=== PATIENT | male | born 1960 | race Caucasian/White ===

== ENCOUNTER 2016-11-23 14:20 | Emergency (ER) | payer MEDICARE, OTHER ==
[~2016-11-23] VITALS: Ht 182.9 cm; Wt 123.5 kg
[~2016-11-23 14:20] MED LIST: ACET-1757 PO; ACID1TAB7 PO; ALBU1.25 NEB; ALBU18HF INH; BENZ100C4 PO; CIPR500T3 PO; DAPT500V6 IV; DILT120T3 PO; DOXY100T PO; ENOX40SY4 SQ; ERTA1VIA IV; FAMO-79 PO; FERR325T20 PO; FEXO1TAB29 PO; FEXO30TA; FEXOFENADINE HCL INH; FLUT16SP NAS; FLUT1BLS INH; FLUT1DIS5; FLUT1DIS5 IH; FLUT50DI; FURO-93 PO; GUAI-103 PO; GUAI200T3 PO; HYDR-3138 PO; HYDR-3240 PO; INDO25CA PO; IPRA3AMP INH; IPRA3AMP NPPB; LEVO500T8 PO; LORA-445 PO; MONT10TA6 PO; MULT-6 PO; OMEP-110 PO; OXYC5TAB3 PO; PANT40TA3 PO; POTA20TA14 PO; PRED20TA PO; PRED5TAB PO; TIOT18CA; TIOT18CA INH; VERA120C2 PO; VERA120T5 PO; VERA120T74 PO; VERA180T56 PO; VERA240T86 PO; ZOLP10TA PO; ZOLP10TA5 PO
[2016-11-23] MEDS ORDERED: ADENOSINE 6 MG/2 ML ONE (15:12)
[2016-11-23] MEDS ORDERED: VERAPAMIL 80MG TABLET PO ONE (15:30)
[2016-11-23] MEDS ORDERED: ADENOSINE 6 MG/2 ML IVPush ONE (15:30)
[2016-11-23] MEDS ORDERED: SODIUM CHLORIDE 0.9% 1,000ML IVBOLUS ONE (15:30)
[2016-11-23] MEDS ORDERED: SODIUM CHLORIDE FLUSH 10ML SYR IVF ONE (15:30)
[2016-11-23] MEDS ORDERED: ASPIRIN 81 MG TABLET CHEW ONE (15:56)
[2016-11-23 16:30] LABS: ASPARTATE AMINO TRANSFERASE 19 U/L (15-37); BLOOD UREA NITROGEN 12 mg/dL (7-18)
[2016-11-23] MEDS ORDERED: ASPIRIN 81 MG TABLET CHEW PO ONE (16:30)
[2016-11-23 17:14] LABS: IS PT STATUS REG ER OR PRE ER? YES
[2016-11-23 17:33] VITALS: BP 141/73
== END 2016-11-23 17:52 | disposition home or self-care (01) ==
LOC: ED 15:42
DX: I47.1 Supraventricular tachycardia (principal); J44.9 Chronic obstructive pulmonary disease, unspecified; I50.9 Heart failure, unspecified; Z85.118 Personal history of other malignant neoplasm of bronchus and lung; Z87.891 Personal history of nicotine dependence
CPT/HCPCS: 36415; 71010; 80053; 83880; 84484; 85025; 93005; 93970; 96361; 96374; 99291; J0153; J7030

== ENCOUNTER → 2017-02-08 | Outpatient (CLI) | payer MEDICARE ==
[~2017-02-08] MED LIST changes: +OMNIPAQUE 350 MG/ML, 75ML BOTTLE ONE
== END | disposition home or self-care (01) ==
LOC: CFH 14:02
PROVIDERS: ATTEND Surgery Vascular Surgery
DX: J44.9 Chronic obstructive pulmonary disease, unspecified (principal); J98.11 Atelectasis; J84.10 Pulmonary fibrosis, unspecified; R91.1 Solitary pulmonary nodule; E04.1 Nontoxic single thyroid nodule; C34.90 Malignant neoplasm of unspecified part of unspecified bronchus or lung
CPT/HCPCS: 71260; Q9967

== ENCOUNTER 2017-04-10 02:24 | Inpatient (IN) | payer MEDICARE ==
[~2017-04-10] VITALS: Ht 182.9 cm; Wt 127.0 kg
[~2017-04-10 02:24] MED LIST changes: +BENZ100C17 PO; -BENZ100C4 PO; +FERR325T18 PO; -FERR325T20 PO; -HYDR-3138 PO; +HYDR-3237 PO; -OMNIPAQUE 350 MG/ML, 75ML BOTTLE ONE
[2017-04-10 02:54] LABS: HEMOGLOBIN 11.1 g/dL (13.7-18.0); WHITE BLOOD COUNT 18.7 x10^3/uL (3.4-10)
[2017-04-10 02:57] LABS: DIFF TOTAL CELLS COUNTED 100 CELL DIFF
[2017-04-10 03:01] LABS: BLOOD UREA NITROGEN 28 mg/dL (7-18)
[2017-04-10 03:06] LABS: ASPARTATE AMINO TRANSFERASE 18 U/L (15-37)
[2017-04-10 03:13] LABS: VERIFY COUNTS? YES
[2017-04-10 03:14] LABS: IS PT STATUS REG ER OR PRE ER? YES
[2017-04-10] MEDS ORDERED: CEFAZOLIN PMX 1GM/50ML 0 ML ONE (03:39)
[2017-04-10] MEDS ORDERED: CEFTRIAXONE PMX 1GM/50ML 50 ML ONE (03:40)
[2017-04-10] MEDS ORDERED: ALBUTEROL/IPRATROPIUM 2.5MG/0.5MG, 3 ML ONE (03:48)
[2017-04-10] MEDS ORDERED: ONDANSETRON 2MG/ML, 2ML ONE (03:56)
[2017-04-10] MEDS ORDERED: SODIUM CHLORIDE FLUSH 10ML SYR IVF ONE (04:00)
[2017-04-10] MEDS ORDERED: ONDANSETRON 2MG/ML, 2ML IVPush ONE ×2 (04:00→05:30)
[2017-04-10] MEDS ORDERED: ALBUTEROL/IPRATROPIUM 2.5MG/0.5MG, 3 ML NPPB ONE (04:00)
[2017-04-10] MEDS ORDERED: CEFTRIAXONE PMX 1GM/50ML 50 ML IV ONE (04:00)
[2017-04-10] MEDS ORDERED: SODIUM CHLORIDE 0.9% 1,000ML IVBOLUS ONE (04:00)
[2017-04-10] MEDS ORDERED: AZITHROMYCIN 500 MG in SODIUM CHLORIDE 0.9% 250 ML IV ONE (04:00)
[2017-04-10] MEDS ORDERED: ONDANSETRON ODT 4 MG PO PRN (04:30)
[2017-04-10] MEDS ORDERED: DOCUSATE 100 MG CAPSULE PO PRN (04:30)
[2017-04-10] MEDS ORDERED: ACETAMINOPHEN 325 MG TABLET PO PRN (04:30)
[2017-04-10 05:11] VITALS: BP 171/88
[2017-04-10] MEDS ORDERED: SODIUM CHLORIDE 0.9% 1,000 ML IV SCH (05:30)
[2017-04-10] MEDS ORDERED: LABETALOL 5MG/ML, 20ML IVPush PRN (05:30)
[2017-04-10] MEDS ORDERED: ALBUTEROL/IPRATROPIUM 2.5MG/0.5MG, 3 ML NPPB SCH (05:30)
[2017-04-10] MEDS ORDERED: ALBUTEROL/IPRATROPIUM 2.5MG/0.5MG, 3 ML NPPB PRN (05:30)
[2017-04-10] MEDS: HEPARIN 5,000 UNITS/ML, 1ML SQ SCH ×3 (06:29→21:57)
[2017-04-10] MEDS: HYDROcodone/APAP 5/325 TABLET PO PRN ×4 (06:29→22:45)
[2017-04-10] MEDS: LACTOBACILLUS CHEW TABLET PO SCH ×4 (06:30→21:54)
[2017-04-10] MEDS: ALBUTEROL/IPRATROPIUM 2.5MG/0.5MG, 3 ML NPPB SCH ×5 (07:00→19:29)
[2017-04-10 07:47] VITALS: BP 128/71
[2017-04-10] MEDS: TEMPLATE NON-FORMULARY MED. (Tiotropium Bromide** (Spiriva**) 18 MCG) INH SCH (08:00)
[2017-04-10] MEDS: TEMPLATE NON-FORMULARY MED. (Fluticasone/Salmeterol** (Advair 500-50 Diskus**) 1 PUFF) IH SCH ×2 (08:00→21:00)
[2017-04-10] MEDS: MULTIVITAMIN 1 TABLET PO SCH (08:00)
[2017-04-10] MEDS: morphine SULFATE 10 MG/ML, 1ML IVPush PRN ×3 (08:00→21:55)
[2017-04-10 13:14] VITALS: BP 140/78
[2017-04-10] MEDS: FLUTICASONE/VILANTEROL 200-25MCG/INH INH SCH (14:01)
[2017-04-10 19:20] VITALS: BP 138/76
[2017-04-10 21:49] VITALS: BP 126/73
[2017-04-10] MEDS: VERAPAMIL ER 240MG TABLET.ER PO SCH (21:54)
[2017-04-10] MEDS: MONTELUKAST 10 MG TABLET PO SCH (21:54)
[2017-04-11 01:33] VITALS: BP 121/64
[2017-04-11] MEDS: AZITHROMYCIN 250 MG TABLET PO SCH (03:48)
[2017-04-11] MEDS: HYDROcodone/APAP 5/325 TABLET PO PRN ×3 (03:48→21:40)
[2017-04-11] MEDS: LACTOBACILLUS CHEW TABLET PO SCH ×4 (04:55→21:05)
[2017-04-11] MEDS: morphine SULFATE 10 MG/ML, 1ML IVPush PRN ×5 (04:56→23:34)
[2017-04-11] MEDS: HEPARIN 5,000 UNITS/ML, 1ML SQ SCH (04:58)
[2017-04-11 05:21] LABS: HEMATOCRIT 24.8 % (39.2-51.8); HEMOGLOBIN 8.1 g/dL (13.7-18.0); WHITE BLOOD COUNT 13.3 x10^3/uL (3.4-10)
[2017-04-11 05:28] LABS: BLOOD UREA NITROGEN 20 mg/dL (7-18)
[2017-04-11] MEDS: ALBUTEROL/IPRATROPIUM 2.5MG/0.5MG, 3 ML NPPB SCH ×4 (06:56→19:40)
[2017-04-11 07:56] VITALS: BP 131/69
[2017-04-11] MEDS: MULTIVITAMIN 1 TABLET PO SCH (08:37)
[2017-04-11] MEDS: FLUTICASONE/VILANTEROL 200-25MCG/INH INH SCH (08:37)
[2017-04-11] MEDS: TEMPLATE NON-FORMULARY MED. (Fluticasone/Salmeterol** (Advair 500-50 Diskus**) 1 PUFF) IH SCH ×2 (08:38→21:00)
[2017-04-11] MEDS: TEMPLATE NON-FORMULARY MED. (Tiotropium Bromide** (Spiriva**) 18 MCG) INH SCH (08:38)
[2017-04-11] MEDS ORDERED: PANTOPROZOLE 40MG TABLET PO SCH (09:00)
[2017-04-11 12:07] LABS: HEMATOCRIT 23.1 % (39.2-51.8); HEMOGLOBIN 7.6 g/dL (13.7-18.0)
[2017-04-11] MEDS ORDERED: PANT40TA5 PO (12:59)
[2017-04-11 13:36] VITALS: BP 143/69
[2017-04-11] MEDS ORDERED: PANTOPRAZOLE 80 MG in SODIUM CHLORIDE 0.9% 50 ML IV ONE (16:30)
[2017-04-11] MEDS: PANTOPRAZOLE 80 MG in SODIUM CHLORIDE 0.9% 100 ML IV SCH (16:57)
[2017-04-11 19:23] VITALS: BP 150/72
[2017-04-11] MEDS: VERAPAMIL ER 240MG TABLET.ER PO SCH (21:05)
[2017-04-11] MEDS: MONTELUKAST 10 MG TABLET PO SCH (21:05)
[2017-04-12] VITALS (7 sets, daily range): BP systolic 113–158; BP diastolic 62–84
[2017-04-12] MEDS ORDERED: LORazepam 1MG TABLET ONE (02:14)
[2017-04-12] MEDS ORDERED: LORazepam 1MG TABLET PO ONE (02:30)
[2017-04-12] MEDS: morphine SULFATE 10 MG/ML, 1ML IVPush PRN ×4 (02:46→23:00)
[2017-04-12] MEDS: PANTOPRAZOLE 80 MG in SODIUM CHLORIDE 0.9% 100 ML IV SCH ×2 (03:58→20:34)
[2017-04-12 05:20] LABS: BLOOD UREA NITROGEN 12 mg/dL (7-18)
[2017-04-12 05:22] LABS: WHITE BLOOD COUNT 10.1 x10^3/uL (3.4-10)
[2017-04-12 05:23] LABS: ASPARTATE AMINO TRANSFERASE 12 U/L (15-37)
[2017-04-12] MEDS: AZITHROMYCIN 250 MG TABLET PO SCH (05:39)
[2017-04-12] MEDS: LACTOBACILLUS CHEW TABLET PO SCH ×4 (05:39→21:00)
[2017-04-12 06:01] LABS: HEMATOCRIT 20.3 % (39.2-51.8); HEMOGLOBIN 6.8 g/dL (13.7-18.0)
[2017-04-12] MEDS: ALBUTEROL/IPRATROPIUM 2.5MG/0.5MG, 3 ML NPPB SCH ×5 (06:45→22:00)
[2017-04-12] MEDS: TEMPLATE NON-FORMULARY MED. (Tiotropium Bromide** (Spiriva**) 18 MCG) INH SCH (09:00)
[2017-04-12] MEDS: TEMPLATE NON-FORMULARY MED. (Fluticasone/Salmeterol** (Advair 500-50 Diskus**) 1 PUFF) IH SCH ×2 (09:00→20:28)
[2017-04-12] MEDS: MULTIVITAMIN 1 TABLET PO SCH (09:00)
[2017-04-12] MEDS: FLUTICASONE/VILANTEROL 200-25MCG/INH INH SCH (09:29)
[2017-04-12] MEDS ORDERED: FENTANYL PF 100 MCG/2ML ONE ×3 (10:16→11:48)
[2017-04-12] MEDS ORDERED: MIDAZOLAM 1 MG/ML, 2ML ONE ×2 (10:16→11:12)
[2017-04-12] MEDS ORDERED: PROPOFOL 10 MG/ML, 20ML ONE (10:33)
[2017-04-12] MEDS ORDERED: MEPERIDINE/PF 25MG/0.5ML IVPush PRN (11:00)
[2017-04-12] MEDS ORDERED: OXYcodone 5 MG/5 ML ORAL.SOL UDC PO PRN (11:00)
[2017-04-12] MEDS ORDERED: ONDANSETRON 2MG/ML, 2ML IVPush PRN (11:00)
[2017-04-12] MEDS ORDERED: HYDROmorphone 1 MG/ML, 1ML IV PRN (11:00)
[2017-04-12] MEDS ORDERED: OXYcodone 5 MG/5 ML ORAL.SOL UDC ONE (11:48)
[2017-04-12] MEDS: FENTANYL PF 100 MCG/2ML IV PRN ×3 (11:49→12:53)
[2017-04-12 13:49] LABS: HEMATOCRIT 27.7 % (39.2-51.8); HEMOGLOBIN 9.1 g/dL (13.7-18.0)
[2017-04-12] MEDS ORDERED: MORPHINE SULFATE 4 MG/ML, 1ML ONE ×3 (14:31→19:51)
[2017-04-12] MEDS: SUCRALFATE 1 GM/10 ML UDC PO SCH ×2 (16:19→20:34)
[2017-04-12] MEDS: VERAPAMIL ER 240MG TABLET.ER PO SCH (20:34)
[2017-04-12] MEDS: MONTELUKAST 10 MG TABLET PO SCH (21:00)
[2017-04-12] MEDS: HYDROcodone/APAP 5/325 TABLET PO PRN (21:25)
[2017-04-13 00:08] VITALS: BP 165/72
[2017-04-13] MEDS: HYDROcodone/APAP 5/325 TABLET PO PRN ×2 (01:18→09:29)
[2017-04-13] MEDS: morphine SULFATE 10 MG/ML, 1ML IVPush PRN ×2 (02:10→05:52)
[2017-04-13 05:44] LABS: HEMATOCRIT 25.7 % (39.2-51.8); HEMOGLOBIN 8.6 g/dL (13.7-18.0); WHITE BLOOD COUNT 9.2 x10^3/uL (3.4-10)
[2017-04-13] MEDS: PANTOPRAZOLE 80 MG in SODIUM CHLORIDE 0.9% 100 ML IV SCH (05:52)
[2017-04-13] MEDS: LACTOBACILLUS CHEW TABLET PO SCH ×2 (05:52→11:31)
[2017-04-13] MEDS: AZITHROMYCIN 250 MG TABLET PO SCH (05:53)
[2017-04-13 06:18] LABS: BLOOD UREA NITROGEN 9 mg/dL (7-18)
[2017-04-13] MEDS ORDERED: PANTOPROZOLE 40MG TABLET PO SCH (07:30)
[2017-04-13] MEDS: ALBUTEROL/IPRATROPIUM 2.5MG/0.5MG, 3 ML NPPB SCH ×2 (07:35→11:20)
[2017-04-13] MEDS: TEMPLATE NON-FORMULARY MED. (Tiotropium Bromide** (Spiriva**) 18 MCG) INH SCH (09:00)
[2017-04-13] MEDS: TEMPLATE NON-FORMULARY MED. (Fluticasone/Salmeterol** (Advair 500-50 Diskus**) 1 PUFF) IH SCH (09:00)
[2017-04-13] MEDS: FLUTICASONE/VILANTEROL 200-25MCG/INH INH SCH (09:20)
[2017-04-13] MEDS: MULTIVITAMIN 1 TABLET PO SCH (09:20)
[2017-04-13] MEDS: SUCRALFATE 1 GM/10 ML UDC PO SCH ×2 (09:21→11:32)
[2017-04-13 10:00] VITALS: BP 145/56
[2017-04-13] MEDS ORDERED: PANT40TA5 PO (10:37)
[2017-04-13] MEDS ORDERED: PRED20TA PO (10:37)
[2017-04-13] MEDS ORDERED: AZIT250T89 PO (10:43)
[2017-04-13] MEDS ORDERED: PNEUMOC 13-VALENT VACC, 0.5 ML IM-VACC ONE (11:00)
[2017-04-13] MEDS ORDERED: FLU VACC QS2017-18 (36MOS+) UP/PF 0.5 ML IM-VACC ONE (11:00)
[2017-04-14 15:49] LABS: ANA SCREEN POSITIVE (Negative)
[2017-04-14 15:50] LABS: ANA TITER 1:40
== END 2017-04-13 15:00 | disposition home or self-care (01) | DRG 377 ==
LOC: ED 04:03 → EDIP 04:05 → 4WST 04:56
PROVIDERS: ADMIT Family Medicine; ATTEND Family Medicine
PROC: 30233N1 Transfusion of Nonautologous Red Blood Cells into Peripheral Vein, Percutaneous Approach (ICD-10-PCS; 2017-04-12)
PROC: 0W3P8ZZ Control Bleeding in Gastrointestinal Tract, Via Natural or Artificial Opening Endoscopic (ICD-10-PCS; principal; 2017-04-12 10:00)
DX: K26.4 Chronic or unspecified duodenal ulcer with hemorrhage (principal); J96.01 Acute respiratory failure with hypoxia; I50.32 Chronic diastolic (congestive) heart failure; I11.0 Hypertensive heart disease with heart failure; E66.01 Morbid (severe) obesity due to excess calories; I47.1 Supraventricular tachycardia; K56.7 Ileus, unspecified; D62 Acute posthemorrhagic anemia; J44.1 Chronic obstructive pulmonary disease with (acute) exacerbation; Z99.81 Dependence on supplemental oxygen; D72.829 Elevated white blood cell count, unspecified; I25.10 Atherosclerotic heart disease of native coronary artery without angina pectoris; I48.0 Paroxysmal atrial fibrillation; K29.40 Chronic atrophic gastritis without bleeding; K29.80 Duodenitis without bleeding; Z80.3 Family history of malignant neoplasm of breast; Z82.49 Family history of ischemic heart disease and other diseases of the circulatory system; Z85.118 Personal history of other malignant neoplasm of bronchus and lung; Z86.010 Personal history of colon polyps; Z87.11 Personal history of peptic ulcer disease; Z87.891 Personal history of nicotine dependence; Z68.38 Body mass index [BMI] 38.0-38.9, adult
CPT/HCPCS: 36415; 71020; 74020; 80048; 80053; 83516; 83605; 83880; 84145; 84484; 85014; 85018; 85025; 86038; 86039; 86677; 86704; 86706; 86708; 86803; 86850; 86900; 86923; 87040; 87340; 90686; 93005; 94640; 96365; 96375; J0456; J0696; J1644; J2250; J2405; J2704; J3010; J7620; C9113; J2270; J7030; J7050; J7512; P9016

== ENCOUNTER 2017-04-15 23:04 | Inpatient (IN) | payer MEDICARE ==
[~2017-04-15] VITALS: Ht 182.9 cm; Wt 126.4 kg
[~2017-04-15 23:04] MED LIST changes: +AZIT250T89 PO; +PANT40TA5 PO
[2017-04-15] MEDS ORDERED: PANTOPRAZOLE 80 MG in SODIUM CHLORIDE 0.9% 100 ML IV SCH (23:08)
[2017-04-15] MEDS ORDERED: PANTOPRAZOLE 80 MG in SODIUM CHLORIDE 0.9% 50 ML IVPB ONE (23:08)
[2017-04-15] MEDS ORDERED: ALBUTEROL 0.5%, 20ML NPPB SCH (23:30)
[2017-04-15] MEDS ORDERED: SODIUM CHLORIDE 0.9% 1,000ML IVBOLUS ONE (23:30)
[2017-04-15] MEDS ORDERED: SODIUM CHLORIDE FLUSH 10ML SYR IVF ONE ×2 (23:30)
[2017-04-15 23:47] LABS: ASPARTATE AMINO TRANSFERASE 23 U/L (15-37); BLOOD UREA NITROGEN 39 mg/dL (7-18)
[2017-04-15 23:56] LABS: IS PT STATUS REG ER OR PRE ER? YES
[2017-04-16] VITALS (8 sets, daily range): BP systolic 114–163; BP diastolic 58–81
[2017-04-16 00:21] LABS: WHITE BLOOD COUNT 21.6 x10^3/uL (3.4-10)
[2017-04-16 00:24] LABS: HEMATOCRIT 21.6 % (39.2-51.8)
[2017-04-16 00:25] LABS: DIFF TOTAL CELLS COUNTED 100 CELL DIFF
[2017-04-16 01:11] LABS: VERIFY COUNTS? YES
[2017-04-16 01:16] LABS: POLYCHROMASIA 2+
[2017-04-16 01:18] LABS: HYPOCHROMIA 1+
[2017-04-16 01:24] LABS: ANISOCYTOSIS 1+
[2017-04-16] MEDS ORDERED: SODIUM CHLORIDE FLUSH 10ML SYR IVF PRN (01:30)
[2017-04-16] MEDS ORDERED: hydrALAzine 20 MG/ML, 1ML IVPush PRN ×2 (02:30→19:30)
[2017-04-16] MEDS ORDERED: ACETAMINOPHEN 325 MG TABLET PO PRN ×2 (02:30→19:30)
[2017-04-16] MEDS ORDERED: ALBUTEROL SULFATE 2.5 MG/3 ML NEB PRN (02:30)
[2017-04-16] MEDS ORDERED: DIPHENHYDRAMINE 50 MG/ML, 1ML IVPush ONE (02:30)
[2017-04-16] MEDS ORDERED: TRAZODONE 50MG TABLET PO PRN (03:00)
[2017-04-16] MEDS: SUCRALFATE 1 GM/10 ML UDC PO SCH ×5 (03:00→20:53)
[2017-04-16] MEDS: PIPERACILLIN/TAZO/PMX 4.5GM 100 ML IV SCH ×4 (03:09→20:53)
[2017-04-16] MEDS: HYDROcodone/APAP 5/325 TABLET PO PRN ×3 (03:43→20:53)
[2017-04-16] MEDS: LACTOBACILLUS CHEW TABLET PO SCH ×4 (05:29→20:54)
[2017-04-16] MEDS: morphine SULFATE 10 MG/ML, 1ML IVPush PRN ×4 (05:38→23:03)
[2017-04-16] MEDS: ALBUTEROL/IPRATROPIUM 2.5MG/0.5MG, 3 ML NPPB SCH ×4 (07:00→19:38)
[2017-04-16] MEDS ORDERED: IPRATROPIUM 0.5 MG/2.5 ML INHA HHN SCH (09:00)
[2017-04-16] MEDS: FLUTICASONE/VILANTEROL 200-25MCG/INH INH SCH (09:00)
[2017-04-16] MEDS: FUROSEMIDE 20 MG TABLET PO SCH (09:00)
[2017-04-16] MEDS: TEMPLATE NON-FORMULARY MED. (Guaifenesin/Pseudoephedrne Hcl** (Mucinex D Er Tablet**) 1 TA HOMEMEDPO SCH ×2 (09:00→20:52)
[2017-04-16] MEDS: MULTIVITAMIN 1 TABLET PO SCH (09:00)
[2017-04-16] MEDS ORDERED: MIDAZOLAM 1 MG/ML, 2ML ONE (11:39)
[2017-04-16] MEDS ORDERED: FENTANYL PF 100 MCG/2ML ONE (11:39)
[2017-04-16] MEDS ORDERED: PROPOFOL 10 MG/ML, 20ML ONE (12:02)
[2017-04-16] MEDS ORDERED: hydrALAzine 20 MG/ML, 1ML IV PRN (13:00)
[2017-04-16] MEDS ORDERED: PROMETHAZINE 25 MG/ML, 1ML IV PRN (13:00)
[2017-04-16] MEDS ORDERED: FENTANYL PF 100 MCG/2ML IV PRN (13:00)
[2017-04-16] MEDS ORDERED: OXYcodone 5 MG/5 ML ORAL.SOL UDC PO PRN (13:00)
[2017-04-16] MEDS ORDERED: LABETALOL 5MG/ML, 20ML IV PRN (13:00)
[2017-04-16] MEDS ORDERED: ONDANSETRON 2MG/ML, 2ML IVPush PRN (13:00)
[2017-04-16] MEDS ORDERED: HYDROmorphone 1 MG/ML, 1ML IV PRN (13:00)
[2017-04-16] MEDS ORDERED: ALBUTEROL/IPRATROPIUM 2.5MG/0.5MG, 3 ML NPPB PRN (13:00)
[2017-04-16] MEDS: VERAPAMIL ER 240MG TABLET.ER PO SCH (20:54)
[2017-04-16] MEDS: MONTELUKAST 10 MG TABLET PO SCH (20:54)
[2017-04-16] MEDS: OMEPRAZOLE 20 MG CAPSULE.DR PO SCH (20:54)
[2017-04-16] MEDS: TRAZODONE 50MG TABLET PO PRN (22:55)
[2017-04-17 01:35] VITALS: BP 128/63
[2017-04-17] MEDS: PIPERACILLIN/TAZO/PMX 4.5GM 100 ML IV SCH ×4 (03:16→20:20)
[2017-04-17] MEDS: HYDROcodone/APAP 5/325 TABLET PO PRN ×5 (03:16→22:18)
[2017-04-17] MEDS: LACTOBACILLUS CHEW TABLET PO SCH ×4 (05:31→20:20)
[2017-04-17] MEDS: morphine SULFATE 10 MG/ML, 1ML IVPush PRN ×2 (05:31→15:31)
[2017-04-17] MEDS: ALBUTEROL/IPRATROPIUM 2.5MG/0.5MG, 3 ML NPPB SCH ×4 (08:13→18:29)
[2017-04-17 08:15] VITALS: BP 126/71
[2017-04-17 08:16] LABS: BLOOD UREA NITROGEN 12 mg/dL (7-18)
[2017-04-17 08:53] LABS: HEMATOCRIT 24.2 % (39.2-51.8); HEMOGLOBIN 7.9 g/dL (13.7-18.0); WHITE BLOOD COUNT 10.5 x10^3/uL (3.4-10)
[2017-04-17 08:55] LABS: ANISOCYTOSIS 1+; HYPOCHROMIA 1+; POLYCHROMASIA 2+
[2017-04-17] MEDS: TEMPLATE NON-FORMULARY MED. (Guaifenesin/Pseudoephedrne Hcl** (Mucinex D Er Tablet**) 1 TA HOMEMEDPO SCH ×2 (09:00→21:00)
[2017-04-17] MEDS: FLUTICASONE/VILANTEROL 200-25MCG/INH INH SCH (09:10)
[2017-04-17] MEDS: SUCRALFATE 1 GM/10 ML UDC PO SCH ×4 (09:10→20:20)
[2017-04-17] MEDS: OMEPRAZOLE 20 MG CAPSULE.DR PO SCH ×2 (09:11→20:20)
[2017-04-17] MEDS: MULTIVITAMIN 1 TABLET PO SCH (09:11)
[2017-04-17] MEDS: FUROSEMIDE 20 MG TABLET PO SCH (09:11)
[2017-04-17] MEDS ORDERED: LACTULOSE 20 GM/30 ML UDC PO PRN (14:00)
[2017-04-17] MEDS ORDERED: BISACODYL 10 MG SUPP PR PRN (14:00)
[2017-04-17 14:20] VITALS: BP 114/55
[2017-04-17] MEDS: MONTELUKAST 10 MG TABLET PO SCH (20:20)
[2017-04-17] MEDS: VERAPAMIL ER 240MG TABLET.ER PO SCH (20:20)
[2017-04-17 21:00] VITALS: BP 126/65
[2017-04-17] MEDS: TRAZODONE 50MG TABLET PO PRN (22:18)
[2017-04-18] MEDS: morphine SULFATE 10 MG/ML, 1ML IVPush PRN ×3 (01:50→23:30)
[2017-04-18 02:03] VITALS: BP 125/73
[2017-04-18] MEDS: PIPERACILLIN/TAZO/PMX 4.5GM 100 ML IV SCH ×2 (03:01→08:15)
[2017-04-18] MEDS: LACTOBACILLUS CHEW TABLET PO SCH ×4 (05:11→21:37)
[2017-04-18 05:46] LABS: HEMOGLOBIN 7.5 g/dL (13.7-18.0); WHITE BLOOD COUNT 8.3 x10^3/uL (3.4-10)
[2017-04-18 06:34] LABS: HEMATOCRIT 22.6 % (39.2-51.8)
[2017-04-18] MEDS: ALBUTEROL/IPRATROPIUM 2.5MG/0.5MG, 3 ML NPPB SCH ×4 (06:42→19:36)
[2017-04-18] MEDS: SUCRALFATE 1 GM/10 ML UDC PO SCH ×4 (07:34→21:36)
[2017-04-18] MEDS: FLUTICASONE/VILANTEROL 200-25MCG/INH INH SCH (07:34)
[2017-04-18] MEDS: TEMPLATE NON-FORMULARY MED. (Guaifenesin/Pseudoephedrne Hcl** (Mucinex D Er Tablet**) 1 TA HOMEMEDPO SCH ×2 (08:10→21:00)
[2017-04-18] MEDS: FUROSEMIDE 20 MG TABLET PO SCH (08:15)
[2017-04-18] MEDS: MULTIVITAMIN 1 TABLET PO SCH (08:15)
[2017-04-18] MEDS: OMEPRAZOLE 20 MG CAPSULE.DR PO SCH ×2 (08:15→21:44)
[2017-04-18 08:34] VITALS: BP 132/70
[2017-04-18 12:14] LABS: HEMATOCRIT 24.5 % (39.2-51.8); HEMOGLOBIN 7.9 g/dL (13.7-18.0)
[2017-04-18] MEDS: HYDROcodone/APAP 5/325 TABLET PO PRN ×2 (12:23→21:37)
[2017-04-18 13:30] VITALS: BP 113/66
[2017-04-18] MEDS ORDERED: POLYETHYLENE GLYCOL 17 GM PACKET PO ONE (13:30)
[2017-04-18] MEDS ORDERED: BISACODYL 10 MG SUPP PR PRN (13:30)
[2017-04-18] MEDS ORDERED: DOCUSATE 50 MG/5 ML, 10ML UDC PO SCH (13:30)
[2017-04-18] MEDS ORDERED: LACTULOSE 20 GM/30 ML UDC PO PRN (13:30)
[2017-04-18] MEDS: DOCUSATE 100 MG CAPSULE PO SCH (15:10)
[2017-04-18] MEDS ORDERED: MORPHINE SULFATE 4 MG/ML, 1ML ONE (15:12)
[2017-04-18 20:45] VITALS: BP 127/67
[2017-04-18] MEDS ORDERED: SENNOSIDES 8.8 MG/5 ML ORAL SOL NG SCH (21:00)
[2017-04-18] MEDS: MONTELUKAST 10 MG TABLET PO SCH (21:36)
[2017-04-18] MEDS: VERAPAMIL ER 240MG TABLET.ER PO SCH (21:36)
[2017-04-18] MEDS ORDERED: TRAZODONE 50MG TABLET PO PRN (23:00)
[2017-04-19 02:15] VITALS: BP 120/62
[2017-04-19] MEDS: LACTOBACILLUS CHEW TABLET PO SCH ×2 (05:06→11:38)
[2017-04-19] MEDS: HYDROcodone/APAP 5/325 TABLET PO PRN (05:13)
[2017-04-19 06:14] LABS: HEMATOCRIT 23.4 % (39.2-51.8); HEMOGLOBIN 7.6 g/dL (13.7-18.0); WHITE BLOOD COUNT 7.7 x10^3/uL (3.4-10)
[2017-04-19] MEDS: TEMPLATE NON-FORMULARY MED. (Guaifenesin/Pseudoephedrne Hcl** (Mucinex D Er Tablet**) 1 TA HOMEMEDPO SCH (07:05)
[2017-04-19] MEDS: SUCRALFATE 1 GM/10 ML UDC PO SCH ×2 (07:07→11:38)
[2017-04-19 07:20] VITALS: BP 166/64
[2017-04-19] MEDS: DOCUSATE 100 MG CAPSULE PO SCH (07:21)
[2017-04-19] MEDS: FLUTICASONE/VILANTEROL 200-25MCG/INH INH SCH (08:03)
[2017-04-19] MEDS: FUROSEMIDE 20 MG TABLET PO SCH (08:03)
[2017-04-19] MEDS: OMEPRAZOLE 20 MG CAPSULE.DR PO SCH (08:03)
[2017-04-19] MEDS: MULTIVITAMIN 1 TABLET PO SCH (08:03)
[2017-04-19] MEDS: ALBUTEROL/IPRATROPIUM 2.5MG/0.5MG, 3 ML NPPB SCH (09:45)
[2017-04-19 12:00] LABS: HEMATOCRIT 24.2 % (39.2-51.8); HEMOGLOBIN 7.8 g/dL (13.7-18.0)
[2017-04-19] MEDS ORDERED: OMEP-110 PO (12:30)
[2017-04-19] MEDS ORDERED: SUCR1ORA5 PO (12:36)
[2017-04-19 14:02] VITALS: BP 134/72
== END 2017-04-19 15:27 | disposition home or self-care (01) | DRG 377 ==
LOC: ED 23:13 → EDIP 04-16 01:09 → 4WST 04-16 02:53
PROVIDERS: ADMIT Family Medicine; ATTEND Family Medicine
PROC: 30233N1 Transfusion of Nonautologous Red Blood Cells into Peripheral Vein, Percutaneous Approach (ICD-10-PCS; 2017-04-16)
PROC: 0DJ08ZZ Inspection of Upper Intestinal Tract, Via Natural or Artificial Opening Endoscopic (ICD-10-PCS; principal; 2017-04-16 12:00)
DX: K26.4 Chronic or unspecified duodenal ulcer with hemorrhage (principal); J96.91 Respiratory failure, unspecified with hypoxia; I11.0 Hypertensive heart disease with heart failure; I95.9 Hypotension, unspecified; I50.9 Heart failure, unspecified; D62 Acute posthemorrhagic anemia; I47.1 Supraventricular tachycardia; J44.1 Chronic obstructive pulmonary disease with (acute) exacerbation; K29.40 Chronic atrophic gastritis without bleeding; K59.00 Constipation, unspecified; I48.91 Unspecified atrial fibrillation; E66.9 Obesity, unspecified; Z99.81 Dependence on supplemental oxygen; Z87.891 Personal history of nicotine dependence; Z87.11 Personal history of peptic ulcer disease; Z85.118 Personal history of other malignant neoplasm of bronchus and lung; Z80.3 Family history of malignant neoplasm of breast; Z68.37 Body mass index [BMI] 37.0-37.9, adult; Z82.49 Family history of ischemic heart disease and other diseases of the circulatory system; Z86.010 Personal history of colon polyps
CPT/HCPCS: 36415; 71010; 80048; 80053; 84484; 85014; 85018; 85025; 86850; 86900; 86923; 93005; 94640; 99285; J2250; J2543; J2704; J3010; J7620; C9113; J1200; J2270; J7030; J7512; P9016

== ENCOUNTER 2017-05-26 03:14 | Inpatient (IN) | payer MEDICARE ==
[~2017-05-26] VITALS: Ht 182.9 cm; Wt 122.6 kg
[~2017-05-26 03:14] MED LIST changes: +BENZ-17 PO; -BENZ100C17 PO; +SUCR1ORA5 PO
[2017-05-26 03:57] LABS: HEMATOCRIT 28.2 % (39.2-51.8); HEMOGLOBIN 8.6 g/dL (13.7-18.0); WHITE BLOOD COUNT 9.9 x10^3/uL (3.4-10)
[2017-05-26] MEDS ORDERED: ASPIRIN 81 MG TABLET CHEW ONE (03:58)
[2017-05-26] MEDS ORDERED: ASPIRIN 81 MG TABLET CHEW PO ONE (04:00)
[2017-05-26] MEDS ORDERED: SODIUM CHLORIDE FLUSH 10ML SYR IVF ONE (04:00)
[2017-05-26] MEDS ORDERED: ALBUTEROL/IPRATROPIUM 2.5MG/0.5MG, 3 ML NPPB ONE (04:00)
[2017-05-26 04:08] LABS: ASPARTATE AMINO TRANSFERASE 14 U/L (15-37); BLOOD UREA NITROGEN 10 mg/dL (7-18)
[2017-05-26 04:14] LABS: ANISOCYTOSIS 1+; HYPOCHROMIA 1+
[2017-05-26 04:15] LABS: POLYCHROMASIA 1+; STOMATOCYTES 1+
[2017-05-26 04:16] LABS: MICROCYTOSIS 1+
[2017-05-26 04:23] LABS: IS PT STATUS REG ER OR PRE ER? YES
[2017-05-26] MEDS ORDERED: OMNIPAQUE 350 MG/ML, 100ML BOTTLE ONE (04:50)
[2017-05-26] MEDS ORDERED: ENOXAPARIN 40 MG/0.4 ML SQ SCH (06:00)
[2017-05-26] MEDS ORDERED: GUAIFENESIN/DM 200-20MG, 10ML UDC PO PRN (06:00)
[2017-05-26] MEDS ORDERED: ALBUTEROL SULFATE 2.5MG/0.5ML NPPB PRN (06:30)
[2017-05-26] MEDS ORDERED: ACETAMINOPHEN 325 MG TABLET PO PRN (06:30)
[2017-05-26] MEDS ORDERED: AZITHROMYCIN 500 MG TABLET PO ONE (06:30)
[2017-05-26] MEDS: methylPREDNISolone SOD SUCC 40 MG/ML IVPush SCH ×3 (06:39→20:59)
[2017-05-26] MEDS ORDERED: ALBUTEROL/IPRATROPIUM 2.5MG/0.5MG, 3 ML NPPB SCH (07:00)
[2017-05-26] MEDS ORDERED: ALBUTEROL/IPRATROPIUM 2.5MG/0.5MG, 3 ML NPPB PRN (08:30)
[2017-05-26 08:34] VITALS: BP 151/77
[2017-05-26] MEDS ORDERED: IPRATROPIUM 0.5 MG/2.5 ML INHA HHN SCH (09:00)
[2017-05-26 09:40] LABS: RAPID INFLUENZA A Negative (Negative); RAPID INFLUENZA B Negative (Negative)
[2017-05-26] MEDS: ALBUTEROL/IPRATROPIUM 2.5MG/0.5MG, 3 ML NPPB SCH ×3 (11:00→20:45)
[2017-05-26] MEDS: MULTIVITAMIN 1 TABLET PO SCH (11:21)
[2017-05-26] MEDS: HYDROcodone/APAP 10/325 MG TABLET PO PRN ×3 (11:21→21:01)
[2017-05-26 11:28] VITALS: BP 132/77
[2017-05-26 12:37] VITALS: BP 146/81
[2017-05-26] MEDS: FLUTICASONE/VILANTEROL 200-25MCG/INH INH SCH (13:02)
[2017-05-26] MEDS: FERROUS SULFATE 325 MG TABLET PO SCH (15:51)
[2017-05-26] MEDS: HEPARIN 5,000 UNITS/ML, 1ML SQ SCH ×2 (15:51→22:45)
[2017-05-26 18:51] VITALS: BP 166/82
[2017-05-26] MEDS: VERAPAMIL ER 240MG TABLET.ER PO SCH (21:00)
[2017-05-26] MEDS: MONTELUKAST 10 MG TABLET PO SCH (21:00)
[2017-05-26] MEDS: ZOLPIDEM 5MG TABLET PO PRN (22:41)
[2017-05-27 02:00] VITALS: BP 138/66
[2017-05-27] MEDS: HYDROcodone/APAP 10/325 MG TABLET PO PRN ×4 (05:27→21:29)
[2017-05-27] MEDS: methylPREDNISolone SOD SUCC 40 MG/ML IVPush SCH (05:27)
[2017-05-27 05:47] LABS: HEMATOCRIT 28.8 % (39.2-51.8); HEMOGLOBIN 9.2 g/dL (13.7-18.0); WHITE BLOOD COUNT 15.5 x10^3/uL (3.4-10)
[2017-05-27 05:51] LABS: BLOOD UREA NITROGEN 8 mg/dL (7-18)
[2017-05-27] MEDS: ALBUTEROL/IPRATROPIUM 2.5MG/0.5MG, 3 ML NPPB SCH ×4 (08:25→20:00)
[2017-05-27 08:40] VITALS: BP 124/63
[2017-05-27] MEDS ORDERED: AZITHROMYCIN 250 MG TABLET PO SCH (09:00)
[2017-05-27] MEDS: FLUTICASONE/VILANTEROL 200-25MCG/INH INH SCH (09:06)
[2017-05-27] MEDS: MULTIVITAMIN 1 TABLET PO SCH (09:06)
[2017-05-27] MEDS: FERROUS SULFATE 325 MG TABLET PO SCH ×2 (09:06→16:00)
[2017-05-27] MEDS: HEPARIN 5,000 UNITS/ML, 1ML SQ SCH ×3 (09:06→21:31)
[2017-05-27 14:07] VITALS: BP 151/75
[2017-05-27 20:22] VITALS: BP 135/73
[2017-05-27] MEDS: VERAPAMIL ER 240MG TABLET.ER PO SCH (21:00)
[2017-05-27] MEDS: MONTELUKAST 10 MG TABLET PO SCH (21:29)
[2017-05-27] MEDS: ZOLPIDEM 5MG TABLET PO PRN (21:29)
[2017-05-28 01:45] VITALS: BP 113/57
[2017-05-28] MEDS: HYDROcodone/APAP 10/325 MG TABLET PO PRN ×5 (01:51→22:45)
[2017-05-28] MEDS: ALBUTEROL/IPRATROPIUM 2.5MG/0.5MG, 3 ML NPPB SCH ×4 (06:38→19:34)
[2017-05-28 07:40] VITALS: BP 119/76
[2017-05-28] MEDS: FLUTICASONE/VILANTEROL 200-25MCG/INH INH SCH (09:24)
[2017-05-28] MEDS: MULTIVITAMIN 1 TABLET PO SCH (09:24)
[2017-05-28] MEDS: AZITHROMYCIN 250 MG TABLET PO SCH (09:24)
[2017-05-28] MEDS: FERROUS SULFATE 325 MG TABLET PO SCH ×2 (09:24→17:13)
[2017-05-28] MEDS: HEPARIN 5,000 UNITS/ML, 1ML SQ SCH ×3 (09:24→22:45)
[2017-05-28 12:28] VITALS: BP 144/74
[2017-05-28 20:01] VITALS: BP 137/72
[2017-05-28] MEDS: MONTELUKAST 10 MG TABLET PO SCH (21:43)
[2017-05-28] MEDS: VERAPAMIL ER 240MG TABLET.ER PO SCH (21:43)
[2017-05-28] MEDS: ZOLPIDEM 5MG TABLET PO PRN (22:45)
[2017-05-29 02:01] VITALS: BP 156/79
[2017-05-29] MEDS: HYDROcodone/APAP 10/325 MG TABLET PO PRN ×2 (03:05→10:20)
[2017-05-29 06:25] VITALS: BP 137/71
[2017-05-29] MEDS: ALBUTEROL/IPRATROPIUM 2.5MG/0.5MG, 3 ML NPPB SCH ×2 (08:01→12:51)
[2017-05-29] MEDS: AZITHROMYCIN 250 MG TABLET PO SCH (08:21)
[2017-05-29] MEDS: FERROUS SULFATE 325 MG TABLET PO SCH (08:21)
[2017-05-29] MEDS: MULTIVITAMIN 1 TABLET PO SCH (08:21)
[2017-05-29] MEDS: FLUTICASONE/VILANTEROL 200-25MCG/INH INH SCH (08:21)
[2017-05-29] MEDS: HEPARIN 5,000 UNITS/ML, 1ML SQ SCH (08:21)
[2017-05-29 12:37] VITALS: BP 122/79
[2017-05-29] MEDS ORDERED: PRED20TA PO (13:25)
[2017-05-29] MEDS ORDERED: AZIT250T89 PO (13:25)
[2017-05-29] MEDS ORDERED: FERR-36 PO (13:26)
== END 2017-05-29 19:26 | disposition home or self-care (01) | DRG 189 ==
LOC: ED 04:43 → EDIP 05:39 → 4EST 06:25
PROVIDERS: ADMIT Family Medicine; ATTEND Family Medicine
DX: J96.01 Acute respiratory failure with hypoxia (principal); I11.0 Hypertensive heart disease with heart failure; I50.9 Heart failure, unspecified; Z99.81 Dependence on supplemental oxygen; J44.1 Chronic obstructive pulmonary disease with (acute) exacerbation; D64.9 Anemia, unspecified; G47.30 Sleep apnea, unspecified; Z79.82 Long term (current) use of aspirin; Z80.3 Family history of malignant neoplasm of breast; Z85.118 Personal history of other malignant neoplasm of bronchus and lung; Z87.11 Personal history of peptic ulcer disease; Z87.891 Personal history of nicotine dependence; Z90.2 Acquired absence of lung [part of]
CPT/HCPCS: 36415; 71275; 80048; 80053; 83880; 84484; 85025; 85610; 87400; 93005; 93306; 94640; 99285; J1644; J7620; Q9967; J2920; J7512

== ENCOUNTER → 2017-06-10 | Outpatient (CLI) | payer MEDICARE ==
[~2017-06-10] MED LIST changes: +FERR-36 PO; +FERR325T5 PO; +FLUT9.9S INH; +GUAI600T PO; +MIDAZOLAM 1 MG/ML, 5ML ONE; +MORPHINE SULFATE 4 MG/ML, 1ML ONE
[2017-06-10 11:29] LABS: BLOOD UREA NITROGEN 15 mg/dL (7-18)
[2017-06-10 11:32] LABS: ASPARTATE AMINO TRANSFERASE 11 U/L (15-37)
[2017-06-10 11:57] LABS: HEMATOCRIT 35.5 % (39.2-51.8); HEMOGLOBIN 10.8 g/dL (13.7-18.0); WHITE BLOOD COUNT 16.7 x10^3/uL (3.4-10)
[2017-06-10 12:00] LABS: ANISOCYTOSIS 2+
[2017-06-10 12:01] LABS: MICROCYTOSIS 2+; POLYCHROMASIA 1+
== END ==
LOC: STAR 10:31
PROVIDERS: ATTEND Internal Medicine Cardiovascular Disease
DX: Z01.818 Encounter for other preprocedural examination (principal); J84.10 Pulmonary fibrosis, unspecified; I47.1 Supraventricular tachycardia
CPT/HCPCS: 36415; 71020; 80053; 85025

== ENCOUNTER 2017-06-14 06:34 | Observation (INO) | payer MEDICARE ==
[2017-06-10 10:58] VITALS: BP 155/79
[~2017-06-14] VITALS: Ht 182.9 cm; Wt 122.2 kg
[~2017-06-14 06:34] MED LIST changes: -FERR325T5 PO; -FLUT9.9S INH; -GUAI600T PO; -MIDAZOLAM 1 MG/ML, 5ML ONE; -MORPHINE SULFATE 4 MG/ML, 1ML ONE
[2017-06-14] MEDS ORDERED: SODIUM CHLORIDE 0.9% 1,000 ML IV SCH (06:50)
[2017-06-14] MEDS ORDERED: FLUT9.9S INH (07:04)
[2017-06-14] MEDS ORDERED: GUAI600T PO (07:04)
[2017-06-14] MEDS ORDERED: MULT-6 PO (07:04)
[2017-06-14] MEDS ORDERED: FERR325T5 PO (07:04)
[2017-06-14] MEDS ORDERED: ALBU18HF INH (07:06)
[2017-06-14] MEDS ORDERED: HEPARIN 1,000 UNITS/ML, 10ML ONE (07:48)
[2017-06-14] MEDS ORDERED: LIDOCAINE 2%, 20ML ONE (07:48)
[2017-06-14] MEDS ORDERED: PROTAMINE SULFATE 10 MG/ML, 5ML ONE (07:48)
[2017-06-14] MEDS ORDERED: ALBUTEROL SULFATE 200 PUFFS/8.5 GR INH ONE (08:04)
[2017-06-14] MEDS ORDERED: ROCURONIUM 10 MG/ML,10ML ONE (08:04)
[2017-06-14] MEDS ORDERED: ONDANSETRON 2MG/ML, 2ML ONE ×2 (08:04)
[2017-06-14] MEDS ORDERED: PROPOFOL 10 MG/ML, 20ML ONE (08:04)
[2017-06-14] MEDS ORDERED: SUCCINYLCHOLINE 20 MG/ML, 10ML ONE (08:04)
[2017-06-14] MEDS ORDERED: DEXAMETHASONE 4 MG/ML, 1ML ONE (08:04)
[2017-06-14] MEDS ORDERED: FENTANYL PF 250 MCG/5ML ONE (08:05)
[2017-06-14] MEDS ORDERED: MIDAZOLAM 1 MG/ML, 5ML ONE (08:05)
[2017-06-14] MEDS ORDERED: ISOPROTERENOL 0.2MG/ML, 5ML ONE (09:08)
[2017-06-14] MEDS ORDERED: ALBUTEROL HFA 90 MCG/SPRAY INH PRN (10:30)
[2017-06-14] MEDS ORDERED: ALBUTEROL SULFATE 2.5 MG/3 ML NEB PRN (10:30)
[2017-06-14] MEDS ORDERED: OXYcodone 5 MG/5 ML ORAL.SOL UDC ONE ×2 (10:49→11:01)
[2017-06-14] MEDS ORDERED: ACETAMINOPHEN 650 MG/20.3 ML UDC ONE (10:49)
[2017-06-14] MEDS: OXYcodone 5 MG/5 ML ORAL.SOL UDC PO PRN ×2 (10:51→11:04)
[2017-06-14] MEDS: ACETAMINOPHEN 325 MG TABLET PO PRN (10:52)
[2017-06-14] MEDS ORDERED: MEPERIDINE/PF 25MG/0.5ML IVPush PRN (11:00)
[2017-06-14] MEDS ORDERED: MIDAZOLAM 1 MG/ML, 2ML IV PRN (11:00)
[2017-06-14] MEDS ORDERED: LABETALOL 5MG/ML, 20ML IV PRN (11:00)
[2017-06-14] MEDS ORDERED: ONDANSETRON 2MG/ML, 2ML IVPush PRN (11:00)
[2017-06-14] MEDS ORDERED: FENTANYL PF 100 MCG/2ML IV PRN (11:00)
[2017-06-14] MEDS ORDERED: hydrALAzine 20 MG/ML, 1ML IV PRN (11:00)
[2017-06-14] MEDS ORDERED: ALBUTEROL SULFATE 2.5 MG/3 ML NPPB PRN (11:00)
[2017-06-14] MEDS ORDERED: PROMETHAZINE 25 MG/ML, 1ML IV PRN (11:00)
[2017-06-14] MEDS ORDERED: HYDROmorphone 1 MG/ML, 1ML IV PRN (11:00)
[2017-06-14] MEDS ORDERED: FENTANYL PF 100 MCG/2ML ONE (11:01)
[2017-06-14] MEDS ORDERED: HYDROmorphone 2 MG/ML, 1ML ONE (11:07)
[2017-06-14] MEDS: MORPHINE SULFATE 4 MG/ML, 1ML IVPush PRN ×3 (12:05→21:16)
[2017-06-14 15:54] VITALS: BP 144/75
[2017-06-14] MEDS ORDERED: MORPHINE SULFATE 4 MG/ML, 1ML ONE (16:02)
[2017-06-14] MEDS ORDERED: IPRATROPIUM 0.5 MG/2.5 ML INHA NPPB SCH (17:00)
[2017-06-14] MEDS ORDERED: ALBUTEROL/IPRATROPIUM 2.5MG/0.5MG, 3 ML ONE (17:18)
[2017-06-14] MEDS: ALBUTEROL/IPRATROPIUM 2.5MG/0.5MG, 3 ML NPPB SCH ×2 (17:29→19:12)
[2017-06-14 19:22] VITALS: BP 146/76
[2017-06-14] MEDS ORDERED: MONTELUKAST 10 MG TABLET PO SCH (21:00)
[2017-06-14] MEDS ORDERED: TEMPLATE NON-FORMULARY MED. (Fluticasone/Salmeterol** (Advair 500-50 Diskus**) 1 PUFF) IH SCH (21:00)
[2017-06-14] MEDS: FLUTICASONE NASAL SPRAY 16GM NAS SCH ×2 (21:00→23:00)
[2017-06-14] MEDS: GUAIFENESIN ER 600 MG TABLET PO SCH (21:15)
[2017-06-14] MEDS ORDERED: ZOLPIDEM 5MG TABLET PO ONE (22:00)
[2017-06-15 01:33] VITALS: BP 163/90
[2017-06-15] MEDS: MORPHINE SULFATE 4 MG/ML, 1ML IVPush PRN ×2 (01:51→09:17)
[2017-06-15] MEDS: ACETAMINOPHEN 325 MG TABLET PO PRN (03:37)
[2017-06-15 05:12] LABS: HEMOGLOBIN 10.1 g/dL (13.7-18.0); WHITE BLOOD COUNT 12.2 x10^3/uL (3.4-10)
[2017-06-15 05:19] LABS: BLOOD UREA NITROGEN 9 mg/dL (7-18)
[2017-06-15] MEDS: ALBUTEROL/IPRATROPIUM 2.5MG/0.5MG, 3 ML NPPB SCH ×2 (06:00→10:06)
[2017-06-15 07:48] VITALS: BP 128/82
[2017-06-15] MEDS ORDERED: FERROUS SULFATE 325 MG TABLET PO SCH (09:00)
[2017-06-15] MEDS ORDERED: FLUTICASONE/VILANTEROL 200-25MCG/INH INH SCH (09:00)
[2017-06-15] MEDS ORDERED: MULTIVITAMIN 1 TABLET PO SCH (09:00)
[2017-06-15] MEDS ORDERED: TEMPLATE NON-FORMULARY MED. (Tiotropium Bromide** (Spiriva**) 18 MCG) INH SCH (09:00)
[2017-06-15] MEDS: GUAIFENESIN ER 600 MG TABLET PO SCH (09:09)
== END 2017-06-15 12:20 | disposition home or self-care (01) ==
LOC: CACL 06:34 → EDSTATUS 08:30 → ORIP 15:04 → 5SO 16:33 → DCLOUNGE 06-15 12:06
PROVIDERS: ADMIT Internal Medicine Cardiovascular Disease; ATTEND Internal Medicine Cardiovascular Disease
DX: I47.1 Supraventricular tachycardia (principal); J44.9 Chronic obstructive pulmonary disease, unspecified; Z87.891 Personal history of nicotine dependence; E66.9 Obesity, unspecified
CPT/HCPCS: 36415; 80048; 85025; 93613; 93621; 93623; 93653; 93971; 94640; 96374; 96376; C1730; C1766; C1894; C2630; G0378; J0330; J1100; J1170; J1644; J2250; J2405; J2704; J2720; J3010; J3490; J7620

== ENCOUNTER 2017-10-23 09:10 | Inpatient (IN) | payer MEDICARE ==
[~2017-10-23] VITALS: Ht 182.9 cm; Wt 131.0 kg
[~2017-10-23 09:10] MED LIST changes: +DOCU-131 PO; -FERR-36 PO; +FERR-51 PO; +FERR325T5 PO; +FLUT1BLS3 IH; +FLUT9.9S INH; +GUAI600T PO
[2017-10-23] MEDS ORDERED: ALBUTEROL/IPRATROPIUM 2.5MG/0.5MG, 3 ML ONE (09:46)
[2017-10-23 10:25] LABS: BASOPHILS # (AUTO) 0.06 x10^3/uL (0-0.1); BASOPHILS % (AUTO) 1 % (0-1); EOSINOPHILS # (AUTO) 0.07 x10^3/uL (0-0.4); EOSINOPHILS % (AUTO) 1 % (1-7); LYMPHOCYTES # (AUTO) 1.59 x10^3/uL (1-3.4); LYMPHOCYTES % (AUTO) 12 % (22-44); MD NO; MEAN CORPUSCULAR HEMOGLOBIN 26.6 pg (27.5-34.5); MEAN CORPUSCULAR HGB CONC 31.5 g/dL (33.2-36.2); MEAN CORPUSCULAR VOLUME 84.3 fL (81-97); MEAN PLATELET VOLUME 8.6 fL (7.4-10.4); MONOCYTES # (AUTO) 0.83 x10^3/uL (0.2-0.8); MONOCYTES % (AUTO) 6 % (2-9); NEUTROPHILS # (AUTO) 10.49 x10^3/uL (1.8-6.8); NEUTROPHILS % (AUTO) 80 % (42-75); PLATELET COUNT 236 x10^3/uL (130-400); RED BLOOD COUNT 3.87 x10^6/uL (4.38-5.82); RED CELL DISTRIBUTION WIDTH 19.2 % (9.4-14.8)
[2017-10-23 10:35] LABS: ALANINE AMINOTRANSFERASE 29 U/L (12-78); ALBUMIN 3.3 g/dL (3.4-5.0); ANION GAP 5 mmol/L (5-15); CALCIUM 7.6 mg/dL (8.5-10.1); CHLORIDE 102 mmol/L (98-107); CREATININE 0.58 mg/dL (0.7-1.3)
[2017-10-23 10:40] LABS: ALKALINE PHOSPHATASE 108 U/L (45-117); BILIRUBIN,TOTAL 0.3 mg/dL (0.2-1.0); TOTAL PROTEIN 6.5 g/dL (6.4-8.2); TROPONIN I < 0.015 ng/mL (0.000-0.045)
[2017-10-23] MEDS ORDERED: MAGNESIUM SULFATE PMX 2GM/50ML 50 ML IV ONE (11:00)
[2017-10-23] MEDS ORDERED: CEFTRIAXONE PMX 1GM/50ML 50 ML IV ONE (11:00)
[2017-10-23] MEDS ORDERED: CEFTRIAXONE PMX 1GM/50ML 50 ML ONE (11:03)
[2017-10-23] MEDS ORDERED: CETIRIZINE 10 MG TABLET PO ONE (13:22)
[2017-10-23] MEDS ORDERED: AZITHROMYCIN 500 MG TABLET PO ONE (13:30)
[2017-10-23] MEDS ORDERED: LABETALOL 5MG/ML, 20ML IVPush PRN (13:30)
[2017-10-23] MEDS ORDERED: ENALAPRILAT 1.25 MG/ML, 2ML IVPush PRN (13:30)
[2017-10-23] MEDS ORDERED: POLYETHYLENE GLYCOL 17 GM PACKET PO PRN (13:30)
[2017-10-23] MEDS ORDERED: DOCUSATE 100 MG CAPSULE PO PRN (13:30)
[2017-10-23] MEDS ORDERED: ENOXAPARIN 40 MG/0.4 ML SQ SCH (13:30)
[2017-10-23 14:00] VITALS: BP 164/80
[2017-10-23] MEDS ORDERED: ALBUTEROL/IPRATROPIUM 2.5MG/0.5MG, 3 ML NPPB SCH (14:00)
[2017-10-23] MEDS ORDERED: [UNRECOGNIZED DRUG - REMARK] XX PRN (14:00)
[2017-10-23] MEDS: ALBUTEROL/IPRATROPIUM 2.5MG/0.5MG, 3 ML NPPB SCH ×5 (14:02→22:43)
[2017-10-23 19:38] VITALS: BP 150/77
[2017-10-23] MEDS: ACETAMINOPHEN 325 MG TABLET PO PRN (20:06)
[2017-10-23] MEDS: GUAIFENESIN ER 600 MG TABLET PO SCH (20:06)
[2017-10-23] MEDS: MONTELUKAST 10 MG TABLET PO SCH (20:06)
[2017-10-23] MEDS: FLUTICASONE NASAL SPRAY 16GM NAS SCH (21:00)
[2017-10-23] MEDS: TRAZODONE 50MG TABLET PO PRN ×2 (21:05→22:05)
[2017-10-24 02:38] VITALS: BP 131/62
[2017-10-24 05:01] LABS: BASOPHILS # (AUTO) 0.03 x10^3/uL (0-0.1); BASOPHILS % (AUTO) 0 % (0-1); EOSINOPHILS # (AUTO) 0.01 x10^3/uL (0-0.4); EOSINOPHILS % (AUTO) 0 % (1-7); LYMPHOCYTES # (AUTO) 1.12 x10^3/uL (1-3.4); LYMPHOCYTES % (AUTO) 8 % (22-44); MD NO; MEAN CORPUSCULAR HEMOGLOBIN 27.5 pg (27.5-34.5); MEAN CORPUSCULAR HGB CONC 32.1 g/dL (33.2-36.2); MEAN CORPUSCULAR VOLUME 85.6 fL (81-97); MEAN PLATELET VOLUME 8.4 fL (7.4-10.4); MONOCYTES # (AUTO) 0.67 x10^3/uL (0.2-0.8); MONOCYTES % (AUTO) 5 % (2-9); NEUTROPHILS # (AUTO) 12.58 x10^3/uL (1.8-6.8); NEUTROPHILS % (AUTO) 87 % (42-75); PLATELET COUNT 218 x10^3/uL (130-400)
[2017-10-24] MEDS: LACTATED RINGERS 1,000 ML IV SCH ×2 (06:17→16:04)
[2017-10-24] MEDS: ALBUTEROL/IPRATROPIUM 2.5MG/0.5MG, 3 ML NPPB SCH ×5 (06:32→22:10)
[2017-10-24 07:10] VITALS: BP 133/68
[2017-10-24] MEDS ORDERED: OMEPRAZOLE 20 MG CAPSULE.DR PO SCH (07:30)
[2017-10-24 08:29] LABS: MICROSCOPIC NOT IND
[2017-10-24 08:31] LABS: CULTURE INDICATED? NO
[2017-10-24] MEDS: GUAIFENESIN ER 600 MG TABLET PO SCH ×2 (08:54→21:00)
[2017-10-24] MEDS: MULTIVITAMIN 1 TABLET PO SCH (08:54)
[2017-10-24] MEDS: FLUTICASONE NASAL SPRAY 16GM NAS SCH ×2 (08:58→21:00)
[2017-10-24] MEDS ORDERED: AZITHROMYCIN 250 MG TABLET PO SCH (09:00)
[2017-10-24] MEDS ORDERED: CETIRIZINE 10 MG TABLET PO SCH (09:00)
[2017-10-24 11:21] VITALS: BP 136/77
[2017-10-24] MEDS ORDERED: PANTOPRAZOLE 80 MG in SODIUM CHLORIDE 0.9% 100 ML IV SCH (12:00)
[2017-10-24] MEDS: SUCRALFATE 1 GM TABLET PO SCH ×4 (12:00→21:00)
[2017-10-24] MEDS ORDERED: PANTOPRAZOLE 80 MG in SODIUM CHLORIDE 0.9% 50 ML IV ONE (12:00)
[2017-10-24 12:09] LABS: OCCULT BLOOD POSITIVE (NEGATIVE)
[2017-10-24] MEDS: ACETAMINOPHEN 325 MG TABLET PO PRN (13:12)
[2017-10-24 15:24] VITALS: BP 135/81
[2017-10-24 19:14] VITALS: BP 131/68
[2017-10-24] MEDS: MONTELUKAST 10 MG TABLET PO SCH (21:00)
[2017-10-24] MEDS: DOXYCYCLINE 100MG TABLET PO SCH (21:00)
[2017-10-24] MEDS: TRAZODONE 50MG TABLET PO PRN ×2 (22:07→23:06)
[2017-10-24] MEDS: PANTOPRAZOLE 80 MG in SODIUM CHLORIDE 0.9% 100 ML IV SCH (22:22)
[2017-10-25] MEDS: LACTATED RINGERS 1,000 ML IV SCH ×2 (01:11→14:18)
[2017-10-25 01:58] VITALS: BP 142/78
[2017-10-25 04:30] LABS: MEAN CORPUSCULAR HEMOGLOBIN 27.4 pg (27.5-34.5); MEAN CORPUSCULAR HGB CONC 31.8 g/dL (33.2-36.2); MEAN CORPUSCULAR VOLUME 86.2 fL (81-97); MEAN PLATELET VOLUME 8.9 fL (7.4-10.4); PLATELET COUNT 199 x10^3/uL (130-400); RED BLOOD COUNT 3.39 x10^6/uL (4.38-5.82)
[2017-10-25 04:33] LABS: PROTHROMBIN TIME 10.3 Seconds (9.6-11.5)
[2017-10-25 04:36] LABS: ALANINE AMINOTRANSFERASE 24 U/L (12-78); ANION GAP 2 mmol/L (5-15); CALCIUM 8.1 mg/dL (8.5-10.1); CHLORIDE 108 mmol/L (98-107); CREATININE 0.68 mg/dL (0.7-1.3)
[2017-10-25 04:38] LABS: ALKALINE PHOSPHATASE 91 U/L (45-117); BILIRUBIN,TOTAL 0.2 mg/dL (0.2-1.0); TOTAL PROTEIN 5.9 g/dL (6.4-8.2)
[2017-10-25 05:47] LABS: BASOPHILS # (AUTO) 0.03 x10^3/uL (0-0.1); BASOPHILS % (AUTO) 0 % (0-1); EOSINOPHILS # (AUTO) 0.02 x10^3/uL (0-0.4); EOSINOPHILS % (AUTO) 0 % (1-7); LYMPHOCYTES # (AUTO) 2.57 x10^3/uL (1-3.4); LYMPHOCYTES % (AUTO) 23 % (22-44); MD SCAN; MONOCYTES % (AUTO) 8 % (2-9); NEUTROPHILS # (AUTO) 7.72 x10^3/uL (1.8-6.8); NEUTROPHILS % (AUTO) 69 % (42-75)
[2017-10-25] MEDS: SUCRALFATE 1 GM TABLET PO SCH ×4 (06:21→21:12)
[2017-10-25] MEDS: ALBUTEROL/IPRATROPIUM 2.5MG/0.5MG, 3 ML NPPB SCH ×5 (07:24→22:30)
[2017-10-25 08:45] VITALS: BP 138/68
[2017-10-25] MEDS: MULTIVITAMIN 1 TABLET PO SCH (09:14)
[2017-10-25] MEDS: DOXYCYCLINE 100MG TABLET PO SCH ×2 (09:14→21:12)
[2017-10-25] MEDS: GUAIFENESIN ER 600 MG TABLET PO SCH ×2 (09:15→21:12)
[2017-10-25] MEDS: PANTOPRAZOLE 80 MG in SODIUM CHLORIDE 0.9% 100 ML IV SCH ×2 (12:09→22:54)
[2017-10-25 13:03] VITALS: BP 145/75
[2017-10-25 18:49] VITALS: BP 148/80
[2017-10-25] MEDS: MONTELUKAST 10 MG TABLET PO SCH (21:12)
[2017-10-25] MEDS: TRAZODONE 50MG TABLET PO PRN ×2 (21:59→22:54)
[2017-10-26 00:56] VITALS: BP 137/70
[2017-10-26] MEDS: LACTATED RINGERS 1,000 ML IV SCH (02:27)
[2017-10-26 04:47] LABS: BASOPHILS # (AUTO) 0.03 x10^3/uL (0-0.1); BASOPHILS % (AUTO) 0 % (0-1); EOSINOPHILS # (AUTO) 0.01 x10^3/uL (0-0.4); EOSINOPHILS % (AUTO) 0 % (1-7); LYMPHOCYTES # (AUTO) 2.62 x10^3/uL (1-3.4); LYMPHOCYTES % (AUTO) 22 % (22-44); MD NO; MEAN CORPUSCULAR HEMOGLOBIN 27.3 pg (27.5-34.5); MEAN CORPUSCULAR HGB CONC 31.9 g/dL (33.2-36.2); MEAN CORPUSCULAR VOLUME 85.4 fL (81-97); MEAN PLATELET VOLUME 8.8 fL (7.4-10.4); MONOCYTES # (AUTO) 0.88 x10^3/uL (0.2-0.8); MONOCYTES % (AUTO) 7 % (2-9); NEUTROPHILS # (AUTO) 8.37 x10^3/uL (1.8-6.8); NEUTROPHILS % (AUTO) 70 % (42-75); PLATELET COUNT 228 x10^3/uL (130-400); RED BLOOD COUNT 3.45 x10^6/uL (4.38-5.82); RED CELL DISTRIBUTION WIDTH 19.9 % (9.4-14.8)
[2017-10-26 06:49] VITALS: BP 148/78
[2017-10-26] MEDS: SUCRALFATE 1 GM TABLET PO SCH ×2 (07:41→12:00)
[2017-10-26] MEDS: DOXYCYCLINE 100MG TABLET PO SCH (07:41)
[2017-10-26] MEDS: GUAIFENESIN ER 600 MG TABLET PO SCH (07:41)
[2017-10-26] MEDS: MULTIVITAMIN 1 TABLET PO SCH (07:41)
[2017-10-26] MEDS: ALBUTEROL/IPRATROPIUM 2.5MG/0.5MG, 3 ML NPPB SCH (08:20)
[2017-10-26] MEDS ORDERED: ALBUTEROL/IPRATROPIUM 2.5MG/0.5MG, 3 ML NPPB SCH (11:00)
[2017-10-26] MEDS ORDERED: PANT40TA5 PO (11:16)
[2017-10-26] MEDS ORDERED: FERR324T8 PO (11:16)
[2017-10-26] MEDS ORDERED: PRED10TA PO (11:16)
[2017-10-26] MEDS: PANTOPRAZOLE 80 MG in SODIUM CHLORIDE 0.9% 100 ML IV SCH (12:39)
[2017-10-26 12:55] VITALS: BP 138/74
[2017-10-26] MEDS ORDERED: SUCR1TAB33 PO (13:36)
== END 2017-10-26 14:50 | disposition home or self-care (01) | DRG 871 ==
LOC: ED 11:04 → EDIP 12:04 → 3NE 13:36 → 3NW 10-24 10:45
PROVIDERS: ADMIT Internal Medicine Pulmonary Disease; ATTEND Internal Medicine Pulmonary Disease
DX: A41.9 Sepsis, unspecified organism (principal); J18.9 Pneumonia, unspecified organism; I11.0 Hypertensive heart disease with heart failure; Z99.81 Dependence on supplemental oxygen; K92.2 Gastrointestinal hemorrhage, unspecified; I50.9 Heart failure, unspecified; I48.91 Unspecified atrial fibrillation; J44.0 Chronic obstructive pulmonary disease with (acute) lower respiratory infection; J44.1 Chronic obstructive pulmonary disease with (acute) exacerbation; E66.9 Obesity, unspecified; D64.9 Anemia, unspecified; E10.9 Type 1 diabetes mellitus without complications; F41.0 Panic disorder [episodic paroxysmal anxiety]; Z68.36 Body mass index [BMI] 36.0-36.9, adult; Z79.4 Long term (current) use of insulin; Z80.3 Family history of malignant neoplasm of breast; Z82.49 Family history of ischemic heart disease and other diseases of the circulatory system; Z85.118 Personal history of other malignant neoplasm of bronchus and lung; Z87.11 Personal history of peptic ulcer disease; Z87.891 Personal history of nicotine dependence; Z90.2 Acquired absence of lung [part of]; Z68.39 Body mass index [BMI] 39.0-39.9, adult
CPT/HCPCS: 36415; 71046; 80053; 81003; 82272; 83605; 83880; 84145; 84484; 85025; 85610; 85730; 87040; 93005; 94640; 96365; 96368; J0696; J7620; C9113; J3475; J7120; J7512

== ENCOUNTER 2017-11-30 15:42 | Inpatient (IN) | payer MEDICARE ==
[~2017-11-30] VITALS: Ht 182.9 cm; Wt 130.2 kg
[~2017-11-30 15:42] MED LIST changes: +FERR324T8 PO; +PRED10TA PO; +SUCR1TAB33 PO
[2017-11-30] MEDS ORDERED: ALBUTEROL/IPRATROPIUM 2.5MG/0.5MG, 3 ML ONE ×2 (16:17→22:10)
[2017-11-30] MEDS: ALBUTEROL/IPRATROPIUM 2.5MG/0.5MG, 3 ML NPPB SCH ×2 (16:21→22:15)
[2017-11-30 16:28] LABS: BASOPHILS # (AUTO) 0.02 x10^3/uL (0-0.1); BASOPHILS % (AUTO) 0 % (0-1); EOSINOPHILS % (AUTO) 1 % (1-7); LYMPHOCYTES # (AUTO) 1.44 x10^3/uL (1-3.4); LYMPHOCYTES % (AUTO) 15 % (22-44); MD NO; MEAN CORPUSCULAR HEMOGLOBIN 27.5 pg (27.5-34.5); MEAN CORPUSCULAR HGB CONC 31.6 g/dL (33.2-36.2); MEAN CORPUSCULAR VOLUME 87.1 fL (81-97); MEAN PLATELET VOLUME 8.9 fL (7.4-10.4); MONOCYTES # (AUTO) 0.77 x10^3/uL (0.2-0.8); MONOCYTES % (AUTO) 8 % (2-9); NEUTROPHILS # (AUTO) 7.24 x10^3/uL (1.8-6.8); NEUTROPHILS % (AUTO) 76 % (42-75); PLATELET COUNT 296 x10^3/uL (130-400); RED BLOOD COUNT 4.46 x10^6/uL (4.38-5.82); RED CELL DISTRIBUTION WIDTH 16.9 % (9.4-14.8)
[2017-11-30] MEDS ORDERED: SODIUM CHLORIDE FLUSH 10ML SYR IVF ONE (16:30)
[2017-11-30] MEDS ORDERED: methylPREDNISolone SOD SUCC 125 MG/2 ML IVP ONE (16:30)
[2017-11-30 16:35] LABS: ALANINE AMINOTRANSFERASE 28 U/L (12-78); ALBUMIN 3.5 g/dL (3.4-5.0); ANION GAP 5 mmol/L (5-15); CALCIUM 8.5 mg/dL (8.5-10.1); CHLORIDE 102 mmol/L (98-107); CREATININE 0.64 mg/dL (0.7-1.3)
[2017-11-30] MEDS ORDERED: methylPREDNISolone SOD SUCC 125 MG/2 ML ONE (16:39)
[2017-11-30 16:40] LABS: ALKALINE PHOSPHATASE 122 U/L (45-117); BILIRUBIN,TOTAL 0.1 mg/dL (0.2-1.0); TOTAL PROTEIN 7.2 g/dL (6.4-8.2); TROPONIN I < 0.015 ng/mL (0.000-0.045)
[2017-11-30] MEDS ORDERED: ALBUTEROL/IPRATROPIUM 2.5MG/0.5MG, 3 ML NPPB ONE (18:00)
[2017-11-30] MEDS ORDERED: SODIUM CHLORIDE FLUSH 10ML SYR IVF PRN (19:00)
[2017-11-30 19:50] VITALS: BP 166/85
[2017-11-30] MEDS ORDERED: ALBUTEROL SULFATE 2.5 MG/3 ML NPPB PRN (20:30)
[2017-11-30] MEDS ORDERED: ENALAPRILAT 1.25 MG/ML, 2ML IVPush PRN (20:30)
[2017-11-30] MEDS ORDERED: DOCUSATE 100 MG CAPSULE PO PRN (20:30)
[2017-11-30] MEDS ORDERED: PANTOPROZOLE 40MG TABLET PO SCH (21:00)
[2017-11-30] MEDS ORDERED: LORATADINE 10 MG TABLET ONE (22:58)
[2017-11-30] MEDS ORDERED: MONTELUKAST 10 MG TABLET PO SCH (23:00)
[2017-11-30] MEDS: GUAIFENESIN ER 600 MG TABLET PO SCH (23:00)
[2017-11-30] MEDS: ZOLPIDEM 5MG TABLET PO PRN ×2 (23:01→23:57)
[2017-11-30] MEDS: HEPARIN 5,000 UNITS/ML, 1ML SQ SCH (23:02)
[2017-11-30] MEDS: AZITHROMYCIN 500 MG TABLET PO SCH (23:07)
[2017-12-01 03:54] VITALS: BP 131/73
[2017-12-01] MEDS: HEPARIN 5,000 UNITS/ML, 1ML SQ SCH (06:49)
[2017-12-01] MEDS: ALBUTEROL/IPRATROPIUM 2.5MG/0.5MG, 3 ML NPPB SCH (07:30)
[2017-12-01] MEDS ORDERED: PANTOPRAZOLE 20MG TABLET PO SCH (07:30)
[2017-12-01 07:45] VITALS: BP 157/84
[2017-12-01] MEDS: GUAIFENESIN ER 600 MG TABLET PO SCH (07:55)
[2017-12-01] MEDS: AZITHROMYCIN 500 MG TABLET PO SCH (07:56)
[2017-12-01] MEDS ORDERED: predniSONE 50MG TABLET PO SCH (08:00)
[2017-12-01] MEDS ORDERED: FERROUS SULFATE 325 MG TABLET PO SCH (08:00)
[2017-12-01] MEDS ORDERED: Fluticasone/Umeclidin/Vilanter (Trelegy Ellipta 100-62.5-25) IH SCH (09:00)
[2017-12-01] MEDS ORDERED: MULTIVITAMIN 1 TABLET PO SCH (09:00)
[2017-12-01] MEDS ORDERED: LORATADINE 10 MG TABLET PO SCH (09:00)
[2017-12-01] MEDS ORDERED: ALBUTEROL/IPRATROPIUM 2.5MG/0.5MG, 3 ML HHN SCH (09:00)
[2017-12-01] MEDS ORDERED: ALBUTEROL 0.5%, 20ML NPPBCONT PRN (09:30)
[2017-12-01] MEDS ORDERED: ALBUTEROL/IPRATROPIUM 2.5MG/0.5MG, 3 ML NPPB SCH (11:00)
[2017-12-01] MEDS ORDERED: PRED50TA PO (13:43)
[2017-12-01] MEDS ORDERED: AZIT500T5 PO (13:43)
== END 2017-12-01 15:35 | disposition home or self-care (01) | DRG 191 ==
LOC: ED 16:35 → EDIP 18:52 → 3NW 19:43 → DCLOUNGE 12-01 15:23
PROVIDERS: ADMIT Family Medicine; ATTEND Family Medicine
DX: J44.1 Chronic obstructive pulmonary disease with (acute) exacerbation (principal); I50.32 Chronic diastolic (congestive) heart failure; Z99.81 Dependence on supplemental oxygen; I48.91 Unspecified atrial fibrillation; F41.0 Panic disorder [episodic paroxysmal anxiety]; J06.9 Acute upper respiratory infection, unspecified; E66.9 Obesity, unspecified; Z80.3 Family history of malignant neoplasm of breast; Z85.118 Personal history of other malignant neoplasm of bronchus and lung; Z87.11 Personal history of peptic ulcer disease; Z87.891 Personal history of nicotine dependence; Z90.2 Acquired absence of lung [part of]; Z79.899 Other long term (current) drug therapy; Z68.38 Body mass index [BMI] 38.0-38.9, adult; Z87.01 Personal history of pneumonia (recurrent)
CPT/HCPCS: 36415; 71045; 80053; 83880; 84484; 85025; 93005; 94640; 96374; J1644; J7620; J2930; J7512

== ENCOUNTER 2018-01-21 11:25 | Inpatient (IN) | payer MEDICARE, OTHER ==
[~2018-01-21] VITALS: Ht 182.9 cm; Wt 131.9 kg
[~2018-01-21 11:25] MED LIST changes: +AZIT500T5 PO; -INDO25CA PO; +INDO25CA5 PO; -IPRA3AMP INH; -IPRA3AMP NPPB; +IPRA3AMP30 INH; +IPRA3AMP30 NPPB; +PRED50TA PO
[2018-01-21] MEDS ORDERED: MONT10TA6 PO (11:50)
[2018-01-21] MEDS ORDERED: FLUT1DIS5 IH (11:53)
[2018-01-21] MEDS ORDERED: SODIUM CHLORIDE FLUSH 10ML SYR IVF ONE (12:00)
[2018-01-21] MEDS ORDERED: ALBUTEROL SULFATE 2.5 MG/3 ML NPPB SCH (12:00)
[2018-01-21] MEDS ORDERED: IPRATROPIUM 0.5 MG/2.5 ML INHA NPPB ONE (12:00)
[2018-01-21 12:09] LABS: BASOPHILS # (AUTO) 0.03 x10^3/uL (0-0.1); BASOPHILS % (AUTO) 0 % (0-1); EOSINOPHILS # (AUTO) 0.07 x10^3/uL (0-0.4); EOSINOPHILS % (AUTO) 1 % (1-7); LYMPHOCYTES # (AUTO) 1.16 x10^3/uL (1-3.4); LYMPHOCYTES % (AUTO) 11 % (22-44); MD NO; MEAN CORPUSCULAR HEMOGLOBIN 28.8 pg (27.5-34.5); MEAN CORPUSCULAR HGB CONC 32.6 g/dL (33.2-36.2); MEAN CORPUSCULAR VOLUME 88.4 fL (81-97); MEAN PLATELET VOLUME 8.9 fL (7.4-10.4); MONOCYTES # (AUTO) 0.84 x10^3/uL (0.2-0.8); MONOCYTES % (AUTO) 8 % (2-9); NEUTROPHILS # (AUTO) 8.19 x10^3/uL (1.8-6.8); NEUTROPHILS % (AUTO) 80 % (42-75); PLATELET COUNT 235 x10^3/uL (130-400); RED BLOOD COUNT 4.54 x10^6/uL (4.38-5.82); RED CELL DISTRIBUTION WIDTH 15.2 % (9.4-14.8)
[2018-01-21 12:21] LABS: ALANINE AMINOTRANSFERASE 32 U/L (12-78); ALBUMIN 3.2 g/dL (3.4-5.0); ANION GAP 4 mmol/L (5-15); CALCIUM 8.2 mg/dL (8.5-10.1); CHLORIDE 100 mmol/L (98-107); CREATININE 0.64 mg/dL (0.7-1.3)
[2018-01-21 12:25] LABS: ALKALINE PHOSPHATASE 111 U/L (45-117); BILIRUBIN,TOTAL 0.2 mg/dL (0.2-1.0); TOTAL PROTEIN 6.6 g/dL (6.4-8.2); TROPONIN I < 0.015 ng/mL (0.000-0.045)
[2018-01-21] MEDS ORDERED: ALBUTEROL SULFATE 2.5 MG/3 ML ONE (12:28)
[2018-01-21] MEDS ORDERED: IPRATROPIUM 0.5 MG/2.5 ML INHA ONE (12:29)
[2018-01-21] MEDS ORDERED: ALBUTEROL 0.5%, 20ML NPPB SCH (13:30)
[2018-01-21] MEDS ORDERED: ALBUTEROL/IPRATROPIUM 2.5MG/0.5MG, 3 ML ONE ×2 (13:35→18:39)
[2018-01-21] MEDS ORDERED: ALBUTEROL SULFATE 2.5 MG/3 ML NPPB ONE (14:00)
[2018-01-21] MEDS ORDERED: ALBUTEROL/IPRATROPIUM 2.5MG/0.5MG, 3 ML NPPB SCH ×2 (14:00→22:00)
[2018-01-21] MEDS ORDERED: ALBUTEROL/IPRATROPIUM 2.5MG/0.5MG, 3 ML NPPB PRN (14:00)
[2018-01-21 14:20] VITALS: BP 154/75
[2018-01-21 17:55] VITALS: BP 154/75
[2018-01-21] MEDS: ALBUTEROL/IPRATROPIUM 2.5MG/0.5MG, 3 ML NPPB SCH (18:45)
[2018-01-21 19:35] VITALS: BP 168/83
[2018-01-21] MEDS: PANTOPROZOLE 40MG TABLET PO SCH (20:32)
[2018-01-21] MEDS: ZOLPIDEM 5MG TABLET PO PRN ×2 (22:45→23:51)
[2018-01-22 02:05] VITALS: BP 155/73
[2018-01-22 05:27] LABS: ANION GAP 4 mmol/L (5-15); CALCIUM 8.6 mg/dL (8.5-10.1); CHLORIDE 101 mmol/L (98-107); CREATININE 0.63 mg/dL (0.7-1.3)
[2018-01-22 05:42] LABS: BASOPHILS # (AUTO) 0.01 x10^3/uL (0-0.1); BASOPHILS % (AUTO) 0 % (0-1); EOSINOPHILS # (AUTO) 0.02 x10^3/uL (0-0.4); EOSINOPHILS % (AUTO) 0 % (1-7); LYMPHOCYTES # (AUTO) 1.31 x10^3/uL (1-3.4); LYMPHOCYTES % (AUTO) 12 % (22-44); MD NO; MEAN CORPUSCULAR HEMOGLOBIN 28.5 pg (27.5-34.5); MEAN CORPUSCULAR HGB CONC 32.3 g/dL (33.2-36.2); MEAN CORPUSCULAR VOLUME 88.2 fL (81-97); MEAN PLATELET VOLUME 9.1 fL (7.4-10.4); MONOCYTES # (AUTO) 0.77 x10^3/uL (0.2-0.8); MONOCYTES % (AUTO) 7 % (2-9); NEUTROPHILS # (AUTO) 8.81 x10^3/uL (1.8-6.8); NEUTROPHILS % (AUTO) 81 % (42-75); PLATELET COUNT 222 x10^3/uL (130-400); RED BLOOD COUNT 4.74 x10^6/uL (4.38-5.82); RED CELL DISTRIBUTION WIDTH 15.2 % (9.4-14.8)
[2018-01-22 07:05] VITALS: BP 157/80
[2018-01-22] MEDS: ALBUTEROL/IPRATROPIUM 2.5MG/0.5MG, 3 ML NPPB SCH ×3 (07:50→19:14)
[2018-01-22] MEDS: PANTOPROZOLE 40MG TABLET PO SCH ×2 (08:57→20:00)
[2018-01-22] MEDS: AZITHROMYCIN 250 MG TABLET PO SCH (08:57)
[2018-01-22 12:43] VITALS: BP 157/83
[2018-01-22] MEDS ORDERED: ALBUTEROL/IPRATROPIUM 2.5MG/0.5MG, 3 ML ONE (17:23)
[2018-01-22] MEDS ORDERED: ALBUTEROL/IPRATROPIUM 2.5MG/0.5MG, 3 ML NPPB PRN (17:30)
[2018-01-22 18:59] VITALS: BP 157/81
[2018-01-22] MEDS: ZOLPIDEM 5MG TABLET PO PRN ×2 (22:00→23:13)
[2018-01-23 02:02] VITALS: BP 152/77
[2018-01-23] MEDS: ALBUTEROL/IPRATROPIUM 2.5MG/0.5MG, 3 ML NPPB SCH ×3 (06:55→14:15)
[2018-01-23 06:59] VITALS: BP 142/83
[2018-01-23 07:27] LABS: BASOPHILS # (AUTO) 0.11 x10^3/uL (0-0.1); BASOPHILS % (AUTO) 1 % (0-1); EOSINOPHILS # (AUTO) 0.07 x10^3/uL (0-0.4); EOSINOPHILS % (AUTO) 1 % (1-7); LYMPHOCYTES % (AUTO) 18 % (22-44); MD NO; MEAN CORPUSCULAR HEMOGLOBIN 28.3 pg (27.5-34.5); MEAN CORPUSCULAR HGB CONC 32.1 g/dL (33.2-36.2); MEAN CORPUSCULAR VOLUME 88.2 fL (81-97); MEAN PLATELET VOLUME 8.6 fL (7.4-10.4); MONOCYTES # (AUTO) 0.87 x10^3/uL (0.2-0.8); MONOCYTES % (AUTO) 8 % (2-9); NEUTROPHILS # (AUTO) 8.49 x10^3/uL (1.8-6.8); NEUTROPHILS % (AUTO) 73 % (42-75); PLATELET COUNT 231 x10^3/uL (130-400); RED BLOOD COUNT 4.89 x10^6/uL (4.38-5.82); RED CELL DISTRIBUTION WIDTH 14.9 % (9.4-14.8)
[2018-01-23 07:36] LABS: ANION GAP 4 mmol/L (5-15); CALCIUM 8.8 mg/dL (8.5-10.1); CHLORIDE 100 mmol/L (98-107); CREATININE 0.64 mg/dL (0.7-1.3)
[2018-01-23] MEDS: AZITHROMYCIN 250 MG TABLET PO SCH (07:54)
[2018-01-23] MEDS: PANTOPROZOLE 40MG TABLET PO SCH (07:54)
[2018-01-23] MEDS ORDERED: FLUTICASONE/VILANTEROL 100-25MCG/INH INH SCH (09:00)
[2018-01-23 12:38] VITALS: BP 156/73
[2018-01-23] MEDS ORDERED: PRED20TA PO (14:28)
[2018-01-23] MEDS ORDERED: AZIT250T89 PO (14:28)
== END 2018-01-23 16:40 | disposition home or self-care (01) | DRG 191 ==
LOC: ED 12:00 → 3NE 14:06
PROVIDERS: ADMIT Family Medicine; ATTEND Family Medicine
DX: J44.1 Chronic obstructive pulmonary disease with (acute) exacerbation (principal); J96.10 Chronic respiratory failure, unspecified whether with hypoxia or hypercapnia; I48.91 Unspecified atrial fibrillation; I11.0 Hypertensive heart disease with heart failure; I50.9 Heart failure, unspecified; Z99.81 Dependence on supplemental oxygen; Z80.3 Family history of malignant neoplasm of breast; Z85.118 Personal history of other malignant neoplasm of bronchus and lung; Z87.11 Personal history of peptic ulcer disease; Z90.2 Acquired absence of lung [part of]; Z87.891 Personal history of nicotine dependence
CPT/HCPCS: 36415; 71045; 71046; 80048; 80053; 83605; 83880; 84484; 85025; 87040; 93005; 94640; 99285; J7613; J7620; J7644; J7512

== ENCOUNTER 2018-06-10 13:14 | Observation (INO) | payer MEDICARE, OTHER ==
[~2018-06-10] VITALS: Ht 182.9 cm; Wt 140.0 kg
[~2018-06-10 13:14] MED LIST changes: +VERA240C2 PO
[2018-06-10] MEDS ORDERED: ALBUTEROL/IPRATROPIUM 2.5MG/0.5MG, 3 ML ONE (13:59)
[2018-06-10 14:07] LABS: BASOPHILS # (AUTO) 0.05 x10^3/uL (0-0.1); BASOPHILS % (AUTO) 0 % (0-1); EOSINOPHILS # (AUTO) 0.08 x10^3/uL (0-0.4); EOSINOPHILS % (AUTO) 1 % (1-7); LYMPHOCYTES # (AUTO) 0.95 x10^3/uL (1-3.4); LYMPHOCYTES % (AUTO) 9 % (22-44); MD NO; MEAN CORPUSCULAR HEMOGLOBIN 25.7 pg (27.5-34.5); MEAN CORPUSCULAR HGB CONC 30.6 g/dL (33.2-36.2); MEAN CORPUSCULAR VOLUME 84.2 fL (81-97); MEAN PLATELET VOLUME 7.4 fL (7.4-10.4); MONOCYTES # (AUTO) 0.74 x10^3/uL (0.2-0.8); MONOCYTES % (AUTO) 7 % (2-9); NEUTROPHILS # (AUTO) 8.68 x10^3/uL (1.8-6.8); NEUTROPHILS % (AUTO) 83 % (42-75); PLATELET COUNT 306 x10^3/uL (130-400); RED BLOOD COUNT 4.07 x10^6/uL (4.38-5.82); RED CELL DISTRIBUTION WIDTH 16.1 % (9.4-14.8)
[2018-06-10 14:12] LABS: RAPID INFLUENZA A Negative (Negative)
[2018-06-10 14:13] LABS: RAPID INFLUENZA B Negative (Negative)
[2018-06-10 14:20] LABS: ALBUMIN 3.4 g/dL (3.4-5.0); ANION GAP 1 mmol/L (5-15); CALCIUM 8.7 mg/dL (8.5-10.1); CHLORIDE 96 mmol/L (98-107); CREATININE 0.54 mg/dL (0.7-1.3)
[2018-06-10] MEDS ORDERED: OMNIPAQUE 350 MG/ML, 100ML BOTTLE ONE (15:30)
[2018-06-10] MEDS ORDERED: LABETALOL 5MG/ML, 20ML IVPush PRN (17:30)
[2018-06-10] MEDS ORDERED: AZITHROMYCIN 500 MG TABLET PO ONE (17:30)
[2018-06-10] MEDS ORDERED: ACETAMINOPHEN 325 MG TABLET PO PRN (17:30)
[2018-06-10] MEDS ORDERED: ONDANSETRON ODT 4 MG PO PRN (17:30)
[2018-06-10] MEDS ORDERED: AZITHROMYCIN 500 MG TABLET ONE (17:51)
[2018-06-10] MEDS ORDERED: ENOXAPARIN 40 MG/0.4 ML ONE (17:51)
[2018-06-10] MEDS: ENOXAPARIN 40 MG/0.4 ML SQ SCH (17:55)
[2018-06-10] MEDS: CLONIDINE MC SCH (18:00)
[2018-06-10 18:02] LABS: TROPONIN I < 0.015 ng/mL (0.000-0.045)
[2018-06-10 18:21] VITALS: BP 161/84
[2018-06-10] MEDS ORDERED: ALBUTEROL SULFATE 2.5 MG/3 ML NPPB PRN (18:30)
[2018-06-10] MEDS: GUAIFENESIN/DM 200-20MG, 10ML UDC PO PRN (18:41)
[2018-06-10] MEDS: ALBUTEROL/IPRATROPIUM 2.5MG/0.5MG, 3 ML NPPB SCH (19:55)
[2018-06-10] MEDS: BUDESONIDE 0.5 MG/2 ML INHA NPPB SCH (19:55)
[2018-06-10] MEDS: MONTELUKAST 10 MG TABLET PO SCH (20:13)
[2018-06-10 20:30] VITALS: BP 167/81
[2018-06-10] MEDS ORDERED: DIPHENHYDRAMINE 25 MG CAPSULE PO PRN (20:30)
[2018-06-10] MEDS ORDERED: TEMPLATE NON-FORMULARY MED. (Pantoprazole Sodium** 40 MG) PO SCH (21:00)
[2018-06-10] MEDS ORDERED: TEMPLATE NON-FORMULARY MED. (Montelukast Sodium** (Singulair**) 10 MG) PO SCH (21:00)
[2018-06-10] MEDS ORDERED: TEMPLATE NON-FORMULARY MED. (Fluticasone/Salmeterol** (Advair 500-50 Diskus**) 1 PUFF) IH SCH (21:00)
[2018-06-11 01:44] VITALS: BP 133/78
[2018-06-11 01:57] LABS: BASOPHILS # (AUTO) 0.04 x10^3/uL (0-0.1); BASOPHILS % (AUTO) 0 % (0-1); EOSINOPHILS % (AUTO) 0 % (1-7); LYMPHOCYTES # (AUTO) 0.87 x10^3/uL (1-3.4); LYMPHOCYTES % (AUTO) 7 % (22-44); MD NO; MEAN CORPUSCULAR HEMOGLOBIN 26.3 pg (27.5-34.5); MEAN CORPUSCULAR HGB CONC 31.3 g/dL (33.2-36.2); MEAN CORPUSCULAR VOLUME 84.1 fL (81-97); MEAN PLATELET VOLUME 7.8 fL (7.4-10.4); MONOCYTES # (AUTO) 0.57 x10^3/uL (0.2-0.8); MONOCYTES % (AUTO) 5 % (2-9); NEUTROPHILS # (AUTO) 10.73 x10^3/uL (1.8-6.8); NEUTROPHILS % (AUTO) 88 % (42-75); PLATELET COUNT 327 x10^3/uL (130-400); RED BLOOD COUNT 4.18 x10^6/uL (4.38-5.82); RED CELL DISTRIBUTION WIDTH 15.8 % (9.4-14.8)
[2018-06-11] MEDS: CLONIDINE MC SCH ×4 (02:00→22:27)
[2018-06-11 02:04] LABS: ANION GAP 5 mmol/L (5-15); CALCIUM 8.4 mg/dL (8.5-10.1); CHLORIDE 97 mmol/L (98-107); CREATININE 0.51 mg/dL (0.7-1.3)
[2018-06-11 02:14] LABS: TROPONIN I < 0.015 ng/mL (0.000-0.045)
[2018-06-11] MEDS: ALBUTEROL/IPRATROPIUM 2.5MG/0.5MG, 3 ML NPPB SCH ×4 (07:00→19:09)
[2018-06-11 07:45] VITALS: BP 128/78
[2018-06-11] MEDS: VERAPAMIL ER 240MG TABLET.ER PO SCH (08:38)
[2018-06-11] MEDS: MULTIVITAMIN 1 TABLET PO SCH (08:38)
[2018-06-11] MEDS: AZITHROMYCIN 250 MG TABLET PO SCH (08:39)
[2018-06-11] MEDS: GUAIFENESIN/DM 200-20MG, 10ML UDC PO PRN (08:46)
[2018-06-11] MEDS ORDERED: VERAPAMIL HCL 240 MG PO SCH (09:00)
[2018-06-11] MEDS: BUDESONIDE 0.5 MG/2 ML INHA NPPB SCH ×2 (11:00→19:09)
[2018-06-11 13:05] VITALS: BP 127/80
[2018-06-11 14:32] VITALS: BP 151/68
[2018-06-11] MEDS: PANTOPROZOLE 40MG TABLET PO SCH (17:26)
[2018-06-11] MEDS: ENOXAPARIN 40 MG/0.4 ML SQ SCH (17:26)
[2018-06-11 19:35] VITALS: BP 150/81
[2018-06-11] MEDS: MONTELUKAST 10 MG TABLET PO SCH (19:47)
[2018-06-11] MEDS: TRAZODONE 50MG TABLET PO PRN (22:12)
[2018-06-12 01:55] VITALS: BP 149/75
[2018-06-12 05:26] LABS: MEAN CORPUSCULAR HGB CONC 30.5 g/dL (33.2-36.2); MEAN CORPUSCULAR VOLUME 85.1 fL (81-97); MEAN PLATELET VOLUME 8.1 fL (7.4-10.4); PLATELET COUNT 302 x10^3/uL (130-400); RED BLOOD COUNT 4.18 x10^6/uL (4.38-5.82); RED CELL DISTRIBUTION WIDTH 15.7 % (9.4-14.8)
[2018-06-12 05:40] LABS: ANION GAP 2 mmol/L (5-15); CALCIUM 8.2 mg/dL (8.5-10.1); CHLORIDE 99 mmol/L (98-107)
[2018-06-12 05:42] LABS: CREATININE 0.52 mg/dL (0.7-1.3)
[2018-06-12 05:53] LABS: BASOPHILS # (AUTO) 0.06 x10^3/uL (0-0.1); BASOPHILS % (AUTO) 1 % (0-1); EOSINOPHILS # (AUTO) 0.05 x10^3/uL (0-0.4); EOSINOPHILS % (AUTO) 1 % (1-7); LYMPHOCYTES % (AUTO) 18 % (22-44); MD SCAN; MONOCYTES # (AUTO) 0.98 x10^3/uL (0.2-0.8); MONOCYTES % (AUTO) 9 % (2-9); NEUTROPHILS # (AUTO) 7.74 x10^3/uL (1.8-6.8); NEUTROPHILS % (AUTO) 72 % (42-75)
[2018-06-12 07:31] VITALS: BP 138/80
[2018-06-12] MEDS: ALBUTEROL/IPRATROPIUM 2.5MG/0.5MG, 3 ML NPPB SCH ×4 (07:33→20:00)
[2018-06-12] MEDS: BUDESONIDE 0.5 MG/2 ML INHA NPPB SCH ×2 (07:33→20:09)
[2018-06-12] MEDS: MULTIVITAMIN 1 TABLET PO SCH (08:10)
[2018-06-12] MEDS: PANTOPROZOLE 40MG TABLET PO SCH ×2 (08:11→16:43)
[2018-06-12] MEDS: VERAPAMIL ER 240MG TABLET.ER PO SCH (08:11)
[2018-06-12] MEDS: AZITHROMYCIN 250 MG TABLET PO SCH (08:12)
[2018-06-12] MEDS: CLONIDINE MC SCH ×3 (08:12→16:45)
[2018-06-12 09:16] LABS: T4 (THYROXINE) 7.6 mcg/dL (4.5-12.1)
[2018-06-12 12:20] VITALS: BP 139/74
[2018-06-12] MEDS: ENOXAPARIN 40 MG/0.4 ML SQ SCH (16:44)
[2018-06-12 19:31] VITALS: BP 158/74
[2018-06-12 20:29] LABS: OCCULT BLOOD NEGATIVE (NEGATIVE)
[2018-06-12] MEDS: TRAZODONE 50MG TABLET PO PRN (21:13)
[2018-06-12] MEDS: MONTELUKAST 10 MG TABLET PO SCH (21:13)
[2018-06-13] MEDS: CLONIDINE MC SCH ×2 (02:00→10:00)
[2018-06-13 03:51] VITALS: BP 122/62
[2018-06-13 05:48] LABS: BASOPHILS # (AUTO) 0.04 x10^3/uL (0-0.1); BASOPHILS % (AUTO) 1 % (0-1); EOSINOPHILS # (AUTO) 0.05 x10^3/uL (0-0.4); EOSINOPHILS % (AUTO) 1 % (1-7); LYMPHOCYTES # (AUTO) 1.73 x10^3/uL (1-3.4); LYMPHOCYTES % (AUTO) 18 % (22-44); MD NO; MEAN CORPUSCULAR HEMOGLOBIN 26.3 pg (27.5-34.5); MEAN PLATELET VOLUME 7.3 fL (7.4-10.4); MONOCYTES # (AUTO) 0.81 x10^3/uL (0.2-0.8); MONOCYTES % (AUTO) 9 % (2-9); NEUTROPHILS # (AUTO) 6.85 x10^3/uL (1.8-6.8); NEUTROPHILS % (AUTO) 72 % (42-75); PLATELET COUNT 304 x10^3/uL (130-400); RED CELL DISTRIBUTION WIDTH 15.8 % (9.4-14.8)
[2018-06-13 06:04] LABS: ANION GAP 2 mmol/L (5-15); CALCIUM 8.3 mg/dL (8.5-10.1); CHLORIDE 99 mmol/L (98-107)
[2018-06-13 06:13] LABS: THYROID STIMULATING HORMONE 0.703 mIU/L (0.358-3.740)
[2018-06-13 06:20] VITALS: BP 151/69
[2018-06-13] MEDS: ALBUTEROL/IPRATROPIUM 2.5MG/0.5MG, 3 ML NPPB SCH ×4 (07:50→19:20)
[2018-06-13] MEDS: BUDESONIDE 0.5 MG/2 ML INHA NPPB SCH ×2 (07:50→19:20)
[2018-06-13] MEDS: AZITHROMYCIN 250 MG TABLET PO SCH (09:00)
[2018-06-13] MEDS: VERAPAMIL ER 240MG TABLET.ER PO SCH (09:39)
[2018-06-13] MEDS: PANTOPROZOLE 40MG TABLET PO SCH ×2 (09:39→16:49)
[2018-06-13] MEDS: MULTIVITAMIN 1 TABLET PO SCH (09:39)
[2018-06-13 13:49] VITALS: BP 138/71
[2018-06-13] MEDS: ENOXAPARIN 40 MG/0.4 ML SQ SCH (16:49)
[2018-06-13 19:46] VITALS: BP 145/74
[2018-06-13] MEDS: MONTELUKAST 10 MG TABLET PO SCH (21:46)
[2018-06-13] MEDS: TRAZODONE 50MG TABLET PO PRN (21:46)
[2018-06-14 04:44] VITALS: BP 143/77
[2018-06-14] MEDS: ALBUTEROL/IPRATROPIUM 2.5MG/0.5MG, 3 ML NPPB SCH ×3 (05:45→14:03)
[2018-06-14 07:30] VITALS: BP 155/88
[2018-06-14] MEDS: AZITHROMYCIN 250 MG TABLET PO SCH (09:18)
[2018-06-14] MEDS: VERAPAMIL ER 240MG TABLET.ER PO SCH (09:18)
[2018-06-14] MEDS: MULTIVITAMIN 1 TABLET PO SCH (09:18)
[2018-06-14] MEDS: PANTOPROZOLE 40MG TABLET PO SCH (09:18)
[2018-06-14 12:58] VITALS: BP 164/79
[2018-06-14] MEDS ORDERED: PRED20TA PO (13:42)
[2018-06-14] MEDS ORDERED: AZIT250T89 PO (13:42)
[2018-06-14] MEDS: BUDESONIDE 0.5 MG/2 ML INHA NPPB SCH (14:03)
== END 2018-06-14 16:20 | disposition home or self-care (01) ==
LOC: ED 13:54 → EDIP 16:13 → INTOOBSV 16:13 → 3NE 18:06 → 3NW 06-13 10:32
PROVIDERS: ADMIT Family Medicine; ATTEND Family Medicine
DX: J44.1 Chronic obstructive pulmonary disease with (acute) exacerbation (principal); I11.0 Hypertensive heart disease with heart failure; E10.9 Type 1 diabetes mellitus without complications; I25.10 Atherosclerotic heart disease of native coronary artery without angina pectoris; I48.91 Unspecified atrial fibrillation; I50.9 Heart failure, unspecified; D64.9 Anemia, unspecified; Z79.4 Long term (current) use of insulin; Z80.3 Family history of malignant neoplasm of breast; Z85.118 Personal history of other malignant neoplasm of bronchus and lung; Z87.891 Personal history of nicotine dependence
CPT/HCPCS: 36415; 71046; 71275; 80048; 82040; 82272; 83605; 83880; 84145; 84436; 84443; 84481; 84484; 85025; 85379; 87040; 87081; 87400; 87880; 93005; 94640; 96372; 97162; 99284; G0378; J1650; J7512; J7620; J7626; Q0163; Q9967

== ENCOUNTER 2018-07-02 19:33 | Inpatient (IN) | payer MEDICARE, OTHER ==
[~2018-07-02] VITALS: Ht 182.9 cm; Wt 140.0 kg
--- NOTE | 2018-07-02 19:58 | NUR ---
PT ARRIVES TO ED WITH C/O OF CHEST CONGESTION AND BILATERAL LEG SWELLING. PT HAS CRACKLES SOUNDS IN LUNGS. PT ALSO HAS +2 PITTING EDEMA IN LEGS BILATERALLY. PT ON ARRIVAL HAD EKG AND CONNECTED TO ALL MONITORS. PLACED ON 4L NC WHICH HE IS ON AT HOME. AWAITING FURTHER ORDERS AT THIS TIME. PT HAS HX OF COPD ADDMISSIONS AND CHF EXACERBATION.
--- NOTE | 2018-07-02 20:42 | NUR ---
PIV PLACED, LABS DRAWN, MD ASKED FOR ORDERS.
[2018-07-02] MEDS ORDERED: BUDESONIDE 0.5 MG/2 ML INHA INH SCH (21:00)
--- NOTE | 2018-07-02 21:00 | NUR ---
LABS AND CULTURES COLLECTED.
[2018-07-02] MEDS ORDERED: methylPREDNISolone SOD SUCC 125 MG/2 ML ONE (21:11)
[2018-07-02] MEDS ORDERED: BUDESONIDE 0.5 MG/2 ML INHA ONE (21:13)
[2018-07-02] MEDS ORDERED: ALBUTEROL/IPRATROPIUM 2.5MG/0.5MG, 3 ML ONE (21:13)
[2018-07-02] MEDS ORDERED: methylPREDNISolone SOD SUCC 125 MG/2 ML IVPush SCH (21:30)
[2018-07-02] MEDS ORDERED: ALBUTEROL/IPRATROPIUM 2.5MG/0.5MG, 3 ML NPPB SCH (21:30)
[2018-07-02] MEDS ORDERED: methylPREDNISolone SOD SUCC 125 MG/2 ML IVPush ONE (21:30)
[2018-07-02 21:34] LABS: ALBUMIN 3.4 g/dL (3.4-5.0); ANION GAP 5 mmol/L (5-15); CALCIUM 8.4 mg/dL (8.5-10.1); CHLORIDE 97 mmol/L (98-107); CREATININE 0.73 mg/dL (0.7-1.3)
[2018-07-02 21:38] LABS: TROPONIN I < 0.015 ng/mL (0.000-0.045)
[2018-07-02 22:16] LABS: BASOPHILS # (AUTO) 0.01 x10^3/uL (0-0.1); BASOPHILS % (AUTO) 0 % (0-1); EOSINOPHILS # (AUTO) 0.16 x10^3/uL (0-0.4); EOSINOPHILS % (AUTO) 1 % (1-7); LYMPHOCYTES # (AUTO) 0.41 x10^3/uL (1-3.4); LYMPHOCYTES % (AUTO) 3 % (22-44); MD SCAN; MEAN CORPUSCULAR HGB CONC 30.5 g/dL (33.2-36.2); MEAN CORPUSCULAR VOLUME 85.4 fL (81-97); MEAN PLATELET VOLUME 8.7 fL (7.4-10.4); MONOCYTES # (AUTO) 0.33 x10^3/uL (0.2-0.8); MONOCYTES % (AUTO) 3 % (2-9); NEUTROPHILS # (AUTO) 11.93 x10^3/uL (1.8-6.8); NEUTROPHILS % (AUTO) 93 % (42-75); PLATELET COUNT 322 x10^3/uL (130-400); RED BLOOD COUNT 4.14 x10^6/uL (4.38-5.82); RED CELL DISTRIBUTION WIDTH 19.8 % (9.4-14.8)
[2018-07-02] MEDS ORDERED: CEFTRIAXONE PMX 1GM/50ML 50 ML ONE (22:29)
[2018-07-02] MEDS ORDERED: CEFTRIAXONE PMX 1GM/50ML 50 ML IV SCH ×2 (22:30)
--- NOTE | 2018-07-02 22:48 | NUR ---
AT THIS TIME MD NOT CONCEREND WITH SEVERE SEPSIS. PT WILL GET ABX. AT THIS TIME. VSS
[2018-07-02] MEDS ORDERED: FUROSEMIDE 20 MG/2 ML IV ONE (23:30)
[2018-07-02] MEDS ORDERED: IBUPROFEN 600 MG TABLET PO PRN (23:30)
[2018-07-02] MEDS ORDERED: DOCUSATE 100 MG CAPSULE PO PRN (23:30)
[2018-07-02] MEDS ORDERED: ACETAMINOPHEN 325 MG TABLET PO PRN (23:30)
[2018-07-02] MEDS ORDERED: POLYETHYLENE GLYCOL 17 GM PACKET PO PRN (23:30)
[2018-07-02] MEDS ORDERED: ALBUTEROL SULFATE 2.5MG/0.5ML NPPB PRN (23:30)
[2018-07-02 23:31] VITALS: BP 175/92
[2018-07-02] MEDS: ALBUTEROL/IPRATROPIUM 2.5MG/0.5MG, 3 ML NPPB SCH (23:49)
[2018-07-02] MEDS ORDERED: PANTOPRAZOLE 40 MG IV ONE (23:57)
[2018-07-03] MEDS: PANTOPROZOLE 40MG TABLET PO SCH ×2 (00:01→16:57)
[2018-07-03] MEDS: ZOLPIDEM 5MG TABLET PO PRN ×4 (00:07→23:06)
[2018-07-03 01:26] VITALS: BP 142/87
[2018-07-03 05:43] LABS: MEAN CORPUSCULAR HEMOGLOBIN 26.2 pg (27.5-34.5); MEAN CORPUSCULAR HGB CONC 30.9 g/dL (33.2-36.2); MEAN CORPUSCULAR VOLUME 84.9 fL (81-97); MEAN PLATELET VOLUME 8.2 fL (7.4-10.4); PLATELET COUNT 301 x10^3/uL (130-400); RED BLOOD COUNT 4.13 x10^6/uL (4.38-5.82); RED CELL DISTRIBUTION WIDTH 19.3 % (9.4-14.8)
[2018-07-03 05:54] LABS: ANION GAP 2 mmol/L (5-15); CALCIUM 8.3 mg/dL (8.5-10.1); CHLORIDE 98 mmol/L (98-107); CREATININE 0.72 mg/dL (0.7-1.3)
[2018-07-03] MEDS: ALBUTEROL/IPRATROPIUM 2.5MG/0.5MG, 3 ML NPPB SCH ×4 (06:42→19:10)
[2018-07-03 07:14] LABS: BASOPHILS # (AUTO) 0.01 x10^3/uL (0-0.1); BASOPHILS % (AUTO) 0 % (0-1); EOSINOPHILS % (AUTO) 0 % (1-7); LYMPHOCYTES # (AUTO) 0.39 x10^3/uL (1-3.4); LYMPHOCYTES % (AUTO) 3 % (22-44); MD SCAN; MONOCYTES # (AUTO) 0.09 x10^3/uL (0.2-0.8); MONOCYTES % (AUTO) 1 % (2-9); NEUTROPHILS # (AUTO) 13.87 x10^3/uL (1.8-6.8); NEUTROPHILS % (AUTO) 97 % (42-75)
[2018-07-03 07:35] VITALS: BP 148/72
[2018-07-03] MEDS ORDERED: FUROSEMIDE 20 MG/2 ML IV ONE (08:30)
[2018-07-03] MEDS ORDERED: VERAPAMIL ER 180MG TABLET.ER ONE (08:40)
[2018-07-03] MEDS: VERAPAMIL ER 240MG TABLET.ER PO SCH (08:51)
[2018-07-03] MEDS: MULTIVITAMIN 1 TABLET PO SCH (08:54)
[2018-07-03] MEDS ORDERED: TEMPLATE NON-FORMULARY MED. (Fluticasone/Salmeterol** (Advair 500-50 Diskus**) 1 PUFF) IH SCH (09:00)
[2018-07-03 14:13] VITALS: BP 165/80
[2018-07-03] MEDS: ENOXAPARIN 40 MG/0.4 ML SQ SCH (16:57)
[2018-07-03 19:53] VITALS: BP 162/85
[2018-07-03] MEDS: MONTELUKAST 10 MG TABLET PO SCH (21:15)
[2018-07-03] MEDS ORDERED: CEFTRIAXONE PMX 1GM/50ML 50 ML IV SCH (22:00)
[2018-07-04 03:59] VITALS: BP 151/67
[2018-07-04 05:03] LABS: BASOPHILS # (AUTO) 0.02 x10^3/uL (0-0.1); BASOPHILS % (AUTO) 0 % (0-1); EOSINOPHILS # (AUTO) 0.36 x10^3/uL (0-0.4); EOSINOPHILS % (AUTO) 3 % (1-7); LYMPHOCYTES # (AUTO) 1.76 x10^3/uL (1-3.4); LYMPHOCYTES % (AUTO) 12 % (22-44); MD NO; MEAN CORPUSCULAR HGB CONC 30.4 g/dL (33.2-36.2); MEAN CORPUSCULAR VOLUME 85.7 fL (81-97); MEAN PLATELET VOLUME 8.1 fL (7.4-10.4); MONOCYTES # (AUTO) 1.01 x10^3/uL (0.2-0.8); MONOCYTES % (AUTO) 7 % (2-9); NEUTROPHILS # (AUTO) 11.42 x10^3/uL (1.8-6.8); NEUTROPHILS % (AUTO) 78 % (42-75); PLATELET COUNT 332 x10^3/uL (130-400); RED BLOOD COUNT 4.02 x10^6/uL (4.38-5.82); RED CELL DISTRIBUTION WIDTH 19.2 % (9.4-14.8)
[2018-07-04 05:10] LABS: ANION GAP 2 mmol/L (5-15); CALCIUM 8.1 mg/dL (8.5-10.1); CHLORIDE 98 mmol/L (98-107); CREATININE 0.51 mg/dL (0.7-1.3)
[2018-07-04] MEDS: ALBUTEROL/IPRATROPIUM 2.5MG/0.5MG, 3 ML NPPB SCH ×4 (07:00→19:10)
[2018-07-04] MEDS: MULTIVITAMIN 1 TABLET PO SCH (07:42)
[2018-07-04] MEDS: VERAPAMIL ER 240MG TABLET.ER PO SCH (07:42)
[2018-07-04] MEDS: PANTOPROZOLE 40MG TABLET PO SCH ×2 (07:42→16:59)
[2018-07-04 08:18] VITALS: BP 134/75
[2018-07-04] MEDS: BUDESONIDE 0.5 MG/2 ML INHA INH SCH ×2 (09:00→19:10)
[2018-07-04 12:59] VITALS: BP 147/78
[2018-07-04] MEDS ORDERED: CEFTRIAXONE PMX 2GM/50ML 50 ML IV SCH (16:30)
[2018-07-04] MEDS ORDERED: BENZOCAINE 20% SPRAY 0.5ML TP PRN (16:30)
[2018-07-04] MEDS: FUROSEMIDE 40 MG TABLET PO SCH (16:59)
[2018-07-04] MEDS: ENOXAPARIN 40 MG/0.4 ML SQ SCH (16:59)
[2018-07-04 20:33] VITALS: BP 99/73
[2018-07-04] MEDS: MONTELUKAST 10 MG TABLET PO SCH (21:28)
[2018-07-04] MEDS: ZOLPIDEM 5MG TABLET PO PRN ×2 (22:22→23:13)
[2018-07-05 03:11] VITALS: BP 160/83
[2018-07-05 04:59] LABS: CALCIUM 7.8 mg/dL (8.5-10.1); CHLORIDE 95 mmol/L (98-107)
[2018-07-05 05:00] LABS: CREATININE 0.64 mg/dL (0.7-1.3)
[2018-07-05 05:08] LABS: ANION GAP 2 mmol/L (5-15)
[2018-07-05] MEDS: ALBUTEROL/IPRATROPIUM 2.5MG/0.5MG, 3 ML NPPB SCH ×4 (06:56→18:59)
[2018-07-05] MEDS: BUDESONIDE 0.5 MG/2 ML INHA INH SCH ×2 (06:56→18:59)
[2018-07-05 07:29] VITALS: BP 138/71
[2018-07-05] MEDS: PANTOPROZOLE 40MG TABLET PO SCH ×2 (08:39→17:38)
[2018-07-05] MEDS: FUROSEMIDE 40 MG TABLET PO SCH (08:39)
[2018-07-05] MEDS: VERAPAMIL ER 240MG TABLET.ER PO SCH (08:40)
[2018-07-05] MEDS: MULTIVITAMIN 1 TABLET PO SCH (08:43)
[2018-07-05 09:03] LABS: PH, VENOUS 7.287 pH (7.320-7.420)
[2018-07-05] MEDS ORDERED: LEVOFLOXACIN 500 MG TABLET PO SCH (11:00)
[2018-07-05 13:14] VITALS: BP 151/76
[2018-07-05] MEDS ORDERED: LEVOFLOXACIN 250 MG TABLET PO ONE (13:30)
[2018-07-05] MEDS: ENOXAPARIN 40 MG/0.4 ML SQ SCH (18:00)
[2018-07-05 19:41] VITALS: BP 150/74
[2018-07-05] MEDS: MONTELUKAST 10 MG TABLET PO SCH (20:29)
[2018-07-05] MEDS: ZOLPIDEM 5MG TABLET PO PRN ×2 (22:27→23:19)
[2018-07-06 01:00] VITALS: BP 148/71
[2018-07-06 05:14] LABS: BASOPHILS # (AUTO) 0.02 x10^3/uL (0-0.1); BASOPHILS % (AUTO) 0 % (0-1); EOSINOPHILS # (AUTO) 0.02 x10^3/uL (0-0.4); EOSINOPHILS % (AUTO) 0 % (1-7); LYMPHOCYTES # (AUTO) 1.85 x10^3/uL (1-3.4); LYMPHOCYTES % (AUTO) 16 % (22-44); MD NO; MEAN CORPUSCULAR HEMOGLOBIN 25.8 pg (27.5-34.5); MEAN CORPUSCULAR HGB CONC 30.5 g/dL (33.2-36.2); MEAN CORPUSCULAR VOLUME 84.6 fL (81-97); MONOCYTES # (AUTO) 1.05 x10^3/uL (0.2-0.8); MONOCYTES % (AUTO) 9 % (2-9); NEUTROPHILS # (AUTO) 8.45 x10^3/uL (1.8-6.8); NEUTROPHILS % (AUTO) 74 % (42-75); PLATELET COUNT 323 x10^3/uL (130-400); RED BLOOD COUNT 3.88 x10^6/uL (4.38-5.82); RED CELL DISTRIBUTION WIDTH 18.7 % (9.4-14.8)
[2018-07-06 05:25] LABS: ANION GAP 0 mmol/L (5-15); CALCIUM 7.9 mg/dL (8.5-10.1); CHLORIDE 96 mmol/L (98-107)
[2018-07-06 05:27] LABS: CREATININE 0.58 mg/dL (0.7-1.3)
[2018-07-06] MEDS: PANTOPROZOLE 40MG TABLET PO SCH (06:43)
[2018-07-06] MEDS: BUDESONIDE 0.5 MG/2 ML INHA INH SCH (06:45)
[2018-07-06] MEDS: ALBUTEROL/IPRATROPIUM 2.5MG/0.5MG, 3 ML NPPB SCH ×3 (06:45→13:57)
[2018-07-06 07:42] VITALS: BP 132/69
[2018-07-06] MEDS: FUROSEMIDE 40 MG TABLET PO SCH (08:13)
[2018-07-06] MEDS: VERAPAMIL ER 240MG TABLET.ER PO SCH (08:13)
[2018-07-06] MEDS: MULTIVITAMIN 1 TABLET PO SCH (08:13)
[2018-07-06] MEDS ORDERED: LEVOFLOXACIN 500 MG TABLET PO SCH (09:00)
[2018-07-06] MEDS ORDERED: PRED10TA PO (13:00)
[2018-07-06] MEDS ORDERED: AZIT250T89 PO (13:00)
[2018-07-06 13:41] VITALS: BP 152/79
== END 2018-07-06 15:31 | disposition home or self-care (01) | DRG 189 ==
LOC: ED 21:16 → EDIP 22:26 → 4NOR 23:28 → DCLOUNGE 07-06 15:30
PROVIDERS: ADMIT Hospitalist; ATTEND Hospitalist
DX: J96.21 Acute and chronic respiratory failure with hypoxia (principal); J44.1 Chronic obstructive pulmonary disease with (acute) exacerbation; C34.90 Malignant neoplasm of unspecified part of unspecified bronchus or lung; Z68.41 Body mass index [BMI] 40.0-44.9, adult; E66.2 Morbid (severe) obesity with alveolar hypoventilation; J96.22 Acute and chronic respiratory failure with hypercapnia; I25.10 Atherosclerotic heart disease of native coronary artery without angina pectoris; Z87.891 Personal history of nicotine dependence; Z83.3 Family history of diabetes mellitus; Z83.6 Family history of other diseases of the respiratory system; Z82.49 Family history of ischemic heart disease and other diseases of the circulatory system; Z79.899 Other long term (current) drug therapy; D64.9 Anemia, unspecified; I11.0 Hypertensive heart disease with heart failure; I48.91 Unspecified atrial fibrillation; I50.9 Heart failure, unspecified; K25.9 Gastric ulcer, unspecified as acute or chronic, without hemorrhage or perforation; Z80.3 Family history of malignant neoplasm of breast; Z85.118 Personal history of other malignant neoplasm of bronchus and lung; Z90.2 Acquired absence of lung [part of]; Z99.81 Dependence on supplemental oxygen; Z71.3 Dietary counseling and surveillance
CPT/HCPCS: 36415; 36600; 71045; 76536; 80048; 82040; 82274; 82803; 83605; 83880; 84484; 85025; 87040; 87081; 87880; 93005; 94010; 94640; 96374; 96375; G0378; J0696; J7620; J7626; J1940; J2930; J7512

== ENCOUNTER 2018-07-24 11:01 | Inpatient (IN) | payer MEDICARE, OTHER ==
[~2018-07-24] VITALS: Ht 182.9 cm; Wt 138.0 kg
[2018-07-24 11:56] LABS: MEAN CORPUSCULAR HEMOGLOBIN 25.9 pg (27.5-34.5); MEAN CORPUSCULAR HGB CONC 30.4 g/dL (33.2-36.2); MEAN CORPUSCULAR VOLUME 85.1 fL (81-97); MEAN PLATELET VOLUME 8.2 fL (7.4-10.4); PLATELET COUNT 238 x10^3/uL (130-400); RED BLOOD COUNT 2.53 x10^6/uL (4.38-5.82); RED CELL DISTRIBUTION WIDTH 22.2 % (9.4-14.8)
[2018-07-24] MEDS ORDERED: ALBUTEROL/IPRATROPIUM 2.5MG/0.5MG, 3 ML ONE (11:56)
--- NOTE | 2018-07-24 11:57 | NUR ---
LAB CALLED CRITICAL H&H 6.5 AND 21.5. PROVIDER MADE AWARE.
[2018-07-24] MEDS ORDERED: MAGNESIUM SULFATE 1 GM in SODIUM CHLORIDE 0.9% 50 ML IV ONE (12:00)
[2018-07-24 12:01] LABS: ALBUMIN 3.1 g/dL (3.4-5.0); ANION GAP 5 mmol/L (5-15); CALCIUM 8.7 mg/dL (8.5-10.1); CHLORIDE 99 mmol/L (98-107); CREATININE 0.69 mg/dL (0.7-1.3)
[2018-07-24 12:05] LABS: TROPONIN I < 0.015 ng/mL (0.000-0.045)
[2018-07-24 12:08] LABS: BASOPHILS # (AUTO) 0.12 x10^3/uL (0-0.1); BASOPHILS % (AUTO) 1 % (0-1); EOSINOPHILS # (AUTO) 0.02 x10^3/uL (0-0.4); EOSINOPHILS % (AUTO) 0 % (1-7); LYMPHOCYTES # (AUTO) 0.97 x10^3/uL (1-3.4); LYMPHOCYTES % (AUTO) 6 % (22-44); MD MORPH REVIEW ONLY; MONOCYTES # (AUTO) 0.67 x10^3/uL (0.2-0.8); MONOCYTES % (AUTO) 4 % (2-9); NEUTROPHILS # (AUTO) 14.01 x10^3/uL (1.8-6.8); NEUTROPHILS % (AUTO) 89 % (42-75)
[2018-07-24 12:09] LABS: ANISOCYTOSIS 2+; HYPOCHROMIA 1+; MICROCYTOSIS 1+; POLYCHROMASIA 1+; STOMATOCYTES 1+
[2018-07-24 12:10] LABS: <PLATELET ESTIMATE> ADEQUATE; <PLT MORPHOLOGY> NORMAL PLT MORPH
[2018-07-24 13:38] VITALS: BP 161/74
[2018-07-24 13:57] VITALS: BP 162/72
[2018-07-24 14:01] VITALS: BP 165/72
[2018-07-24 14:05] VITALS: BP 171/85
[2018-07-24] MEDS ORDERED: hydrALAzine 20 MG/ML, 1ML IVPush PRN (14:30)
[2018-07-24] MEDS ORDERED: ACETAMINOPHEN 325 MG TABLET PO PRN (14:30)
[2018-07-24] MEDS ORDERED: PANTOPRAZOLE 80 MG in SODIUM CHLORIDE 0.9% 50 ML IV ONE (14:30)
[2018-07-24] MEDS ORDERED: TEMPLATE NON-FORMULARY MED. (Albuterol Sulfate (Ventolin Hfa) 1 PUFF) INH PRN (15:30)
[2018-07-24] MEDS: BUDESONIDE 0.5 MG/2 ML INHA HHN SCH (16:00)
[2018-07-24] MEDS: ALBUTEROL SULFATE 2.5 MG/3 ML HHN SCH (16:00)
[2018-07-24] MEDS: IPRATROPIUM 0.5 MG/2.5 ML INHA HHN SCH (16:00)
[2018-07-24] MEDS ORDERED: ALBUTEROL SULFATE 2.5 MG/3 ML NPPB PRN (16:00)
[2018-07-24 16:07] VITALS: BP 164/80
[2018-07-24 18:50] VITALS: BP 151/75
[2018-07-24] MEDS: MONTELUKAST 10 MG TABLET PO SCH (20:29)
[2018-07-24] MEDS: PANTOPRAZOLE 40 MG IV IVPush SCH (20:29)
[2018-07-24] MEDS ORDERED: ZOLPIDEM 5MG TABLET PO ONE (21:00)
[2018-07-24] MEDS ORDERED: TEMPLATE NON-FORMULARY MED. (Fluticasone/Salmeterol** (Advair 500-50 Diskus**) 1 PUFF) IH SCH (21:00)
[2018-07-25] VITALS (7 sets, daily range): BP systolic 126–158; BP diastolic 68–75
[2018-07-25] MEDS: ALBUTEROL SULFATE 2.5 MG/3 ML HHN SCH ×3 (02:00→07:17)
[2018-07-25] MEDS: IPRATROPIUM 0.5 MG/2.5 ML INHA HHN SCH ×2 (02:00→04:00)
[2018-07-25] MEDS: BUDESONIDE 0.5 MG/2 ML INHA HHN SCH ×3 (03:41→19:47)
[2018-07-25 05:14] LABS: MEAN CORPUSCULAR HGB CONC 31.6 g/dL (33.2-36.2); MEAN CORPUSCULAR VOLUME 85.6 fL (81-97); MEAN PLATELET VOLUME 8.3 fL (7.4-10.4); PLATELET COUNT 217 x10^3/uL (130-400); RED BLOOD COUNT 2.59 x10^6/uL (4.38-5.82); RED CELL DISTRIBUTION WIDTH 20.8 % (9.4-14.8)
[2018-07-25 05:20] LABS: ANION GAP 2 mmol/L (5-15); CALCIUM 8.2 mg/dL (8.5-10.1); CHLORIDE 102 mmol/L (98-107); CREATININE 0.49 mg/dL (0.7-1.3)
[2018-07-25 05:58] LABS: BASOPHILS # (AUTO) 0.03 x10^3/uL (0-0.1); BASOPHILS % (AUTO) 0 % (0-1); EOSINOPHILS # (AUTO) 0.01 x10^3/uL (0-0.4); EOSINOPHILS % (AUTO) 0 % (1-7); LYMPHOCYTES # (AUTO) 1.89 x10^3/uL (1-3.4); LYMPHOCYTES % (AUTO) 12 % (22-44); MONOCYTES % (AUTO) 6 % (2-9); NEUTROPHILS # (AUTO) 13.31 x10^3/uL (1.8-6.8); NEUTROPHILS % (AUTO) 82 % (42-75)
[2018-07-25 06:01] LABS: MD SCAN
[2018-07-25] MEDS ORDERED: VERAPAMIL ER 120MG TABLET.ER ONE (08:10)
[2018-07-25] MEDS: PANTOPRAZOLE 40 MG IV IVPush SCH (08:36)
[2018-07-25] MEDS: MULTIVITAMIN 1 TABLET PO SCH (08:37)
[2018-07-25] MEDS: ALBUTEROL/IPRATROPIUM 2.5MG/0.5MG, 3 ML NPPB SCH ×3 (09:00→19:45)
[2018-07-25] MEDS ORDERED: VERAPAMIL ER 240MG TABLET.ER PO SCH (09:00)
[2018-07-25] MEDS ORDERED: PROPOFOL 10 MG/ML, 20ML ONE (10:59)
[2018-07-25] MEDS ORDERED: IRON DEXTRAN COMPLEX 25 MG in SODIUM CHLORIDE 0.9% 50 ML IV ONE ×2 (14:00→14:30)
[2018-07-25] MEDS ORDERED: IRON DEXTRAN COMPLEX 1,000 MG in SODIUM CHLORIDE 0.9% 250 ML IV ONE (14:00)
[2018-07-25] MEDS ORDERED: EPINEPHRINE 1 MG/ML, 1ML SQ PRN (14:30)
[2018-07-25] MEDS ORDERED: IRON DEXTRAN IV PER PHARMACY IV ONE (14:30)
[2018-07-25] MEDS ORDERED: SODIUM CHLORIDE 0.9% IV ONE (15:30)
[2018-07-25] MEDS ORDERED: IRON DEXTRAN COMPLEX IV ONE (15:30)
[2018-07-25] MEDS: VERAPAMIL ER 240MG TABLET.ER PO SCH (21:31)
[2018-07-25] MEDS: PANTOPROZOLE 40MG TABLET PO SCH (21:31)
[2018-07-25] MEDS: MONTELUKAST 10 MG TABLET PO SCH (21:31)
[2018-07-25] MEDS: ZOLPIDEM 5MG TABLET PO SCH (23:53)
[2018-07-26] VITALS (9 sets, daily range): BP systolic 124–161; BP diastolic 70–77
[2018-07-26] MEDS: ALBUTEROL/IPRATROPIUM 2.5MG/0.5MG, 3 ML NPPB SCH ×4 (03:00→19:28)
[2018-07-26] MEDS: PANTOPROZOLE 40MG TABLET PO SCH ×2 (05:57→20:57)
[2018-07-26] MEDS: MULTIVITAMIN 1 TABLET PO SCH (08:17)
[2018-07-26 08:27] LABS: MEAN CORPUSCULAR HEMOGLOBIN 27.2 pg (27.5-34.5); MEAN CORPUSCULAR HGB CONC 31.6 g/dL (33.2-36.2); MEAN CORPUSCULAR VOLUME 86.3 fL (81-97); MEAN PLATELET VOLUME 8.7 fL (7.4-10.4); PLATELET COUNT 222 x10^3/uL (130-400); RED BLOOD COUNT 2.68 x10^6/uL (4.38-5.82); RED CELL DISTRIBUTION WIDTH 20.2 % (9.4-14.8)
[2018-07-26 08:29] LABS: BASOPHILS # (AUTO) 0.04 x10^3/uL (0-0.1); BASOPHILS % (AUTO) 0 % (0-1); EOSINOPHILS % (AUTO) 1 % (1-7); LYMPHOCYTES # (AUTO) 1.36 x10^3/uL (1-3.4); LYMPHOCYTES % (AUTO) 11 % (22-44); MD NO; MONOCYTES # (AUTO) 0.75 x10^3/uL (0.2-0.8); MONOCYTES % (AUTO) 6 % (2-9); NEUTROPHILS # (AUTO) 10.47 x10^3/uL (1.8-6.8); NEUTROPHILS % (AUTO) 82 % (42-75)
[2018-07-26] MEDS: BUDESONIDE 0.5 MG/2 ML INHA HHN SCH (08:30)
[2018-07-26 08:31] LABS: ANION GAP 3 mmol/L (5-15); CALCIUM 7.7 mg/dL (8.5-10.1); CHLORIDE 101 mmol/L (98-107); CREATININE 0.55 mg/dL (0.7-1.3)
[2018-07-26 08:34] LABS: TROPONIN I < 0.015 ng/mL (0.000-0.045)
[2018-07-26 14:52] LABS: TROPONIN I < 0.015 ng/mL (0.000-0.045)
[2018-07-26] MEDS: VERAPAMIL ER 240MG TABLET.ER PO SCH (20:56)
[2018-07-26] MEDS: MONTELUKAST 10 MG TABLET PO SCH (20:56)
[2018-07-26] MEDS: ZOLPIDEM 5MG TABLET PO SCH (20:57)
[2018-07-27] VITALS (8 sets, daily range): BP systolic 119–157; BP diastolic 64–82
[2018-07-27] MEDS: ALBUTEROL/IPRATROPIUM 2.5MG/0.5MG, 3 ML NPPB SCH ×4 (03:00→19:30)
[2018-07-27] MEDS: PANTOPROZOLE 40MG TABLET PO SCH ×2 (05:29→20:09)
[2018-07-27 06:05] LABS: BASOPHILS # (AUTO) 0.05 x10^3/uL (0-0.1); BASOPHILS % (AUTO) 0 % (0-1); EOSINOPHILS # (AUTO) 0.11 x10^3/uL (0-0.4); EOSINOPHILS % (AUTO) 1 % (1-7); LYMPHOCYTES # (AUTO) 1.31 x10^3/uL (1-3.4); LYMPHOCYTES % (AUTO) 10 % (22-44); MD NO; MEAN CORPUSCULAR HEMOGLOBIN 27.9 pg (27.5-34.5); MEAN CORPUSCULAR VOLUME 87.1 fL (81-97); MONOCYTES # (AUTO) 0.88 x10^3/uL (0.2-0.8); MONOCYTES % (AUTO) 7 % (2-9); NEUTROPHILS # (AUTO) 10.58 x10^3/uL (1.8-6.8); NEUTROPHILS % (AUTO) 82 % (42-75); PLATELET COUNT 246 x10^3/uL (130-400); RED BLOOD COUNT 2.92 x10^6/uL (4.38-5.82); RED CELL DISTRIBUTION WIDTH 19.5 % (9.4-14.8)
[2018-07-27 06:14] LABS: ANION GAP 4 mmol/L (5-15); CALCIUM 7.9 mg/dL (8.5-10.1); CHLORIDE 101 mmol/L (98-107)
[2018-07-27 06:17] LABS: CREATININE 0.56 mg/dL (0.7-1.3)
[2018-07-27] MEDS: MULTIVITAMIN 1 TABLET PO SCH (07:51)
[2018-07-27] MEDS: BUDESONIDE 0.5 MG/2 ML INHA HHN SCH ×2 (08:40→19:30)
[2018-07-27] MEDS: MONTELUKAST 10 MG TABLET PO SCH (20:09)
[2018-07-27] MEDS: VERAPAMIL ER 240MG TABLET.ER PO SCH (20:09)
[2018-07-27] MEDS: ZOLPIDEM 5MG TABLET PO SCH (22:39)
[2018-07-28 01:56] VITALS: BP 127/74
[2018-07-28] MEDS: ALBUTEROL/IPRATROPIUM 2.5MG/0.5MG, 3 ML NPPB SCH ×2 (02:50→08:34)
[2018-07-28 05:44] LABS: BASOPHILS # (AUTO) 0.03 x10^3/uL (0-0.1); BASOPHILS % (AUTO) 0 % (0-1); EOSINOPHILS % (AUTO) 1 % (1-7); LYMPHOCYTES # (AUTO) 1.27 x10^3/uL (1-3.4); LYMPHOCYTES % (AUTO) 10 % (22-44); MD NO; MEAN CORPUSCULAR HEMOGLOBIN 27.8 pg (27.5-34.5); MEAN CORPUSCULAR HGB CONC 31.4 g/dL (33.2-36.2); MEAN CORPUSCULAR VOLUME 88.4 fL (81-97); MEAN PLATELET VOLUME 8.7 fL (7.4-10.4); MONOCYTES # (AUTO) 0.87 x10^3/uL (0.2-0.8); MONOCYTES % (AUTO) 7 % (2-9); NEUTROPHILS # (AUTO) 10.09 x10^3/uL (1.8-6.8); NEUTROPHILS % (AUTO) 82 % (42-75); PLATELET COUNT 245 x10^3/uL (130-400); RED CELL DISTRIBUTION WIDTH 18.9 % (9.4-14.8)
[2018-07-28] MEDS: PANTOPROZOLE 40MG TABLET PO SCH (05:49)
[2018-07-28 06:51] VITALS: BP 123/73
[2018-07-28] MEDS: BUDESONIDE 0.5 MG/2 ML INHA HHN SCH (08:34)
[2018-07-28] MEDS: MULTIVITAMIN 1 TABLET PO SCH (10:02)
[2018-07-28] MEDS ORDERED: OMEP-110 PO (12:39)
== END 2018-07-28 13:50 | disposition home or self-care (01) | DRG 377 ==
LOC: ED 12:31 → 4EST 13:00 → DCLOUNGE 07-28 13:30
PROVIDERS: ADMIT Student in an Organized Health Care Education/Training Program; ATTEND Student in an Organized Health Care Education/Training Program
PROC: 30233N1 Transfusion of Nonautologous Red Blood Cells into Peripheral Vein, Percutaneous Approach (ICD-10-PCS; 2018-07-24)
PROC: 0DB78ZX Excision of Stomach, Pylorus, Via Natural or Artificial Opening Endoscopic, Diagnostic (ICD-10-PCS; 2018-07-25)
PROC: 0DB68ZX Excision of Stomach, Via Natural or Artificial Opening Endoscopic, Diagnostic (ICD-10-PCS; 2018-07-25)
PROC: 0DB98ZX Excision of Duodenum, Via Natural or Artificial Opening Endoscopic, Diagnostic (ICD-10-PCS; principal; 2018-07-25 11:00)
DX: K26.4 Chronic or unspecified duodenal ulcer with hemorrhage (principal); J96.21 Acute and chronic respiratory failure with hypoxia; D62 Acute posthemorrhagic anemia; R65.10 Systemic inflammatory response syndrome (SIRS) of non-infectious origin without acute organ dysfunction; J98.11 Atelectasis; K29.61 Other gastritis with bleeding; K29.81 Duodenitis with bleeding; D72.829 Elevated white blood cell count, unspecified; I11.0 Hypertensive heart disease with heart failure; I48.91 Unspecified atrial fibrillation; I50.9 Heart failure, unspecified; J44.9 Chronic obstructive pulmonary disease, unspecified; K44.9 Diaphragmatic hernia without obstruction or gangrene; Z80.3 Family history of malignant neoplasm of breast; Z82.49 Family history of ischemic heart disease and other diseases of the circulatory system; Z85.118 Personal history of other malignant neoplasm of bronchus and lung; Z86.711 Personal history of pulmonary embolism; Z87.11 Personal history of peptic ulcer disease; Z87.891 Personal history of nicotine dependence; Z90.2 Acquired absence of lung [part of]; Z99.81 Dependence on supplemental oxygen; Z79.51 Long term (current) use of inhaled steroids
CPT/HCPCS: 36415; 36430; 71045; 80048; 82040; 82728; 83540; 83550; 83880; 84484; 85014; 85018; 85025; 86850; 86900; 86923; 88305; 93005; 94640; 96365; 99291; G0378; J1750; J2704; J3475; J7613; J7620; J7626; J7644; C9113; J7050; J7512; P9016

== ENCOUNTER 2018-08-17 13:54 | Observation (INO) | payer MEDICARE, OTHER ==
[~2018-08-17] VITALS: Ht 182.9 cm; Wt 137.0 kg
[2018-08-17] MEDS ORDERED: PANTOPRAZOLE 40 MG IV IVPush ONE (14:30)
--- NOTE | 2018-08-17 14:54 | NUR ---
ABD XR DONE. LAB AT BS. PT A&OX4, RESP EVEN & UNLABORED, SPEECH CLEAR, SKIN WNL. REPORTS DIZZINESS X 1 DAY, HAD DARK COLORED STOOLS (BLACK) "FOR A FEW DAYS", BLEEDING ULCER IN JULY. C/O LUQ PAIN X "A COUPLE OF DAYS". ONLY USUAL MEDS TAKEN. LAST ORAL INTAKE: WATER PODIATRY ASSISTANT, BREAKFAST AT 0900. LAST BM: TODAY.
[2018-08-17 15:13] LABS: BASOPHILS # (AUTO) 0.06 x10^3/uL (0-0.1); BASOPHILS % (AUTO) 1 % (0-1); EOSINOPHILS # (AUTO) 0.09 x10^3/uL (0-0.4); EOSINOPHILS % (AUTO) 1 % (1-7); LYMPHOCYTES # (AUTO) 1.04 x10^3/uL (1-3.4); LYMPHOCYTES % (AUTO) 12 % (22-44); MD NO; MEAN CORPUSCULAR HEMOGLOBIN 26.1 pg (27.5-34.5); MEAN CORPUSCULAR HGB CONC 30.2 g/dL (33.2-36.2); MEAN CORPUSCULAR VOLUME 86.5 fL (81-97); MEAN PLATELET VOLUME 7.8 fL (7.4-10.4); MONOCYTES # (AUTO) 0.69 x10^3/uL (0.2-0.8); MONOCYTES % (AUTO) 8 % (2-9); NEUTROPHILS # (AUTO) 6.82 x10^3/uL (1.8-6.8); NEUTROPHILS % (AUTO) 78 % (42-75); PLATELET COUNT 389 x10^3/uL (130-400); RED BLOOD COUNT 3.57 x10^6/uL (4.38-5.82); RED CELL DISTRIBUTION WIDTH 19.3 % (9.4-14.8)
[2018-08-17 15:24] LABS: ALANINE AMINOTRANSFERASE 20 U/L (12-78); ALBUMIN 2.9 g/dL (3.4-5.0); ANION GAP 5 mmol/L (5-15); CALCIUM 8.2 mg/dL (8.5-10.1); CHLORIDE 101 mmol/L (98-107)
[2018-08-17 15:27] LABS: ALKALINE PHOSPHATASE 90 U/L (45-117); BILIRUBIN,TOTAL 0.3 mg/dL (0.2-1.0); CREATININE 0.59 mg/dL (0.7-1.3); TOTAL PROTEIN 6.3 g/dL (6.4-8.2)
[2018-08-17] MEDS ORDERED: PANTOPRAZOLE 40 MG IV ONE (15:35)
[2018-08-17] MEDS ORDERED: SODIUM CHLORIDE FLUSH 10ML SYR IVF PRN (16:00)
[2018-08-17] MEDS ORDERED: D5%-0.45NACL+KCL 20MEQ 1,000 ML IV SCH (16:12)
[2018-08-17] MEDS ORDERED: ACETAMINOPHEN 325 MG TABLET PO PRN (16:30)
[2018-08-17] MEDS ORDERED: LABETALOL 5 MG/ML SYRINGE IVPush PRN (16:30)
[2018-08-17] MEDS ORDERED: ZOLPIDEM 5MG TABLET PO PRN (16:30)
[2018-08-17] MEDS ORDERED: ENALAPRILAT 1.25 MG/ML, 2ML IVPush PRN (16:30)
--- NOTE | 2018-08-17 16:38 | NUR ---
PT REPORT TO AMY OLIVAS FOR ROOM 471.
[2018-08-17] MEDS ORDERED: TIOT18CA INH (17:16)
[2018-08-17] MEDS ORDERED: MONT10TA6 PO (17:16)
[2018-08-17] MEDS ORDERED: FLUT1DIS5 IH (17:16)
[2018-08-17] MEDS ORDERED: OMEP40CA6 PO (17:16)
--- NOTE | 2018-08-17 17:32 | NUR ---
LATE ENTRY: 2ND LARGE BORE IV CANCELLED EARLIER.
[2018-08-17 17:33] VITALS: BP 137/80
[2018-08-17] MEDS ORDERED: ALBUTEROL SULFATE 2.5 MG/3 ML NPPB PRN (18:00)
[2018-08-17 19:25] VITALS: BP 170/90
[2018-08-17] MEDS ORDERED: MONTELUKAST 5 MG TAB.CHEW PO SCH (21:00)
[2018-08-18 02:28] VITALS: BP 121/69
[2018-08-18 05:46] LABS: BASOPHILS # (AUTO) 0.08 x10^3/uL (0-0.1); BASOPHILS % (AUTO) 1 % (0-1); EOSINOPHILS % (AUTO) 1 % (1-7); LYMPHOCYTES # (AUTO) 0.91 x10^3/uL (1-3.4); LYMPHOCYTES % (AUTO) 11 % (22-44); MD NO; MEAN CORPUSCULAR HEMOGLOBIN 26.8 pg (27.5-34.5); MEAN CORPUSCULAR VOLUME 86.4 fL (81-97); MEAN PLATELET VOLUME 8.1 fL (7.4-10.4); MONOCYTES # (AUTO) 0.69 x10^3/uL (0.2-0.8); MONOCYTES % (AUTO) 9 % (2-9); NEUTROPHILS # (AUTO) 6.28 x10^3/uL (1.8-6.8); NEUTROPHILS % (AUTO) 78 % (42-75); PLATELET COUNT 352 x10^3/uL (130-400); RED BLOOD COUNT 3.68 x10^6/uL (4.38-5.82); RED CELL DISTRIBUTION WIDTH 18.2 % (9.4-14.8)
[2018-08-18 05:53] LABS: ANION GAP 3 mmol/L (5-15); CALCIUM 8.4 mg/dL (8.5-10.1); CHLORIDE 103 mmol/L (98-107)
[2018-08-18 05:55] LABS: CREATININE 0.52 mg/dL (0.7-1.3)
[2018-08-18 07:04] VITALS: BP 105/55
[2018-08-18] MEDS ORDERED: PANTOPRAZOLE 40 MG IV IVPush SCH (07:30)
[2018-08-18] MEDS ORDERED: VERAPAMIL ER 120MG TABLET.ER ONE (07:57)
[2018-08-18] MEDS ORDERED: IPRATROPIUM 0.5 MG/2.5 ML INHA NPPB SCH (09:00)
[2018-08-18] MEDS ORDERED: VERAPAMIL ER 240MG TABLET.ER PO SCH ×2 (09:00→21:00)
[2018-08-18] MEDS ORDERED: SUCR1TAB PO (09:52)
== END 2018-08-18 12:40 | disposition home or self-care (01) ==
LOC: ED 15:52 → UNDOADMOB 15:53 → INTOOBSV 15:53 → EDIP 15:53 → ED 16:07 → EDIP 16:12 → 4NOR 17:07 → EDIP 17:07 → 4NOR 17:07 → DCLOUNGE 08-18 12:30 → 4NOR 08-18 12:30 → UNDODISOB 08-18 12:40
PROVIDERS: ADMIT Family Medicine; ATTEND Family Medicine
DX: K29.61 Other gastritis with bleeding (principal); K92.1 Melena; D64.9 Anemia, unspecified; E46 Unspecified protein-calorie malnutrition; D62 Acute posthemorrhagic anemia; K25.4 Chronic or unspecified gastric ulcer with hemorrhage; E10.9 Type 1 diabetes mellitus without complications; I11.0 Hypertensive heart disease with heart failure; I25.10 Atherosclerotic heart disease of native coronary artery without angina pectoris; I48.91 Unspecified atrial fibrillation; I50.9 Heart failure, unspecified; J44.9 Chronic obstructive pulmonary disease, unspecified; Z79.4 Long term (current) use of insulin; Z80.3 Family history of malignant neoplasm of breast; Z85.118 Personal history of other malignant neoplasm of bronchus and lung; Z87.11 Personal history of peptic ulcer disease; Z86.711 Personal history of pulmonary embolism; Z87.19 Personal history of other diseases of the digestive system; Z87.891 Personal history of nicotine dependence; Z90.2 Acquired absence of lung [part of]
CPT/HCPCS: 36415; 74021; 80048; 80053; 83690; 85025; 85730; 86850; 86900; 93005; 94640; 96374; 96376; 99284; C9113; G0378; J7613; J7644

== ENCOUNTER 2018-09-11 11:31 | Inpatient (IN) | payer MEDICARE, OTHER ==
[~2018-09-11] VITALS: Ht 185.4 cm; Wt 138.0 kg
[~2018-09-11 11:31] MED LIST changes: +OMEP40CA6 PO; +SUCR1TAB PO; -VERA120T74 PO; +VERA120T8 PO; -VERA180T56 PO; +VERA180T6 PO; +VERA240T10 PO; -VERA240T86 PO
[2018-09-11] MEDS ORDERED: IRON15TA3 PO (12:06)
--- NOTE | 2018-09-11 12:13 | NUR ---
PT PRESENTING TO ER FOR RIGHT TESTICULAR PAIN RADIATING TO RIGHT PELVIC AREA, FEELS THERE HAS BEEN A DECREASE IN URINE OUT PUT X3 DAYS. ALSO INCREASE IN DIFFICULTY BREATHING X3 DAYS, NEEDING TO INCREASE HOME O2 ESPECIALLY WITH MOVEMENT. CONNECTED TO MONITORING, VSS AT THIS TIME. AT BEDSIDE. CALL LIGHT WITHIN REACH. AWAITING FURTHER ORDERS AT THIS TIME
[2018-09-11] MEDS ORDERED: ALBUTEROL/IPRATROPIUM 2.5MG/0.5MG, 3 ML NPPB ONE (12:30)
[2018-09-11] MEDS ORDERED: SODIUM CHLORIDE FLUSH 10ML SYR IVF ONE (12:30)
[2018-09-11] MEDS ORDERED: OXYcodone/APAP 10/325MG TABLET PO ONE (12:30)
[2018-09-11 12:34] LABS: MD YES
[2018-09-11] MEDS ORDERED: OXYcodone/APAP 10/325MG TABLET ONE (12:35)
[2018-09-11 12:38] LABS: MEAN CORPUSCULAR HEMOGLOBIN 26.2 pg (27.5-34.5); MEAN CORPUSCULAR HGB CONC 30.1 g/dL (33.2-36.2); MEAN CORPUSCULAR VOLUME 87.2 fL (81-97); MEAN PLATELET VOLUME 7.8 fL (7.4-10.4); PLATELET COUNT 345 x10^3/uL (130-400); RED BLOOD COUNT 2.67 x10^6/uL (4.38-5.82); RED CELL DISTRIBUTION WIDTH 21.3 % (9.4-14.8)
--- NOTE | 2018-09-11 12:38 | NUR ---
PT MEDICATED FOR PAIN AND TAKEN TO US. PT AWARE OF NEED FOR URINE SAMPLE, CUP TAKEN WITH PT.
[2018-09-11] MEDS ORDERED: ALBUTEROL/IPRATROPIUM 2.5MG/0.5MG, 3 ML ONE (12:40)
[2018-09-11 12:45] LABS: ALANINE AMINOTRANSFERASE 19 U/L (12-78); CALCIUM 8.2 mg/dL (8.5-10.1); CREATININE 0.58 mg/dL (0.7-1.3)
[2018-09-11 12:47] LABS: ALKALINE PHOSPHATASE 82 U/L (45-117); BILIRUBIN,TOTAL 0.3 mg/dL (0.2-1.0); TOTAL PROTEIN 5.8 g/dL (6.4-8.2)
[2018-09-11 12:55] LABS: ANISOCYTOSIS 2+; BAND#(MANUAL) 0.11 x10^3/uL; BANDS%(MANUAL) 1 % (0-7); LYMPH#(MANUAL) 0.68 x10^3/uL (1-3.4); LYMPHS% (MANUAL) 6 % (22-44); MICROCYTOSIS 1+; MONOS#(MANUAL) 1.02 x10^3/uL (0.3-2.7); MONOS% (MANUAL) 9 % (2-9); POLYCHROMASIA 1+; SEG#(MANUAL) 9.49 x10^3/uL (1.8-6.8); SEGS% (MANUAL) 84 % (42-75); STOMATOCYTES 1+
[2018-09-11 12:56] LABS: <PLATELET ESTIMATE> ADEQUATE; <PLT MORPHOLOGY> NORMAL PLT MORPH
[2018-09-11 13:00] LABS: ANION GAP 4 mmol/L (5-15); CHLORIDE 102 mmol/L (98-107)
--- NOTE | 2018-09-11 13:25 | NUR ---
PT BACK FROM US. IV PLACED AND TYPE AND SCREEN DRAWN. OCCULT BLOOD TEST PREFORMED, POSITIVE. MD TO BEDSIDE TO UPDATE PT ON POC
--- NOTE | 2018-09-11 13:47 | NUR ---
CONSENT SIGNED FOR BLOOD.
[2018-09-11] MEDS ORDERED: CEFAZOLIN PMX 1GM/50ML 50 ML IV ONE (14:00)
--- NOTE | 2018-09-11 14:10 | NUR ---
UNR TO BEDSIDE TO ASSESS PT FOR ADMIT
[2018-09-11] MEDS ORDERED: CEFAZOLIN PMX 1GM/50ML 50 ML ONE (14:20)
--- NOTE | 2018-09-11 14:28 | NUR ---
GI AT BEDSIDE. ABX STARTED. BLOOD TO BE HUNG AFTER DRIP COMPLETED
[2018-09-11] MEDS ORDERED: ACETAMINOPHEN 325 MG TABLET PO PRN (14:30)
[2018-09-11] MEDS ORDERED: ONDANSETRON ODT 4 MG PO PRN (14:30)
[2018-09-11] MEDS ORDERED: ENALAPRILAT 1.25 MG/ML, 2ML IVPush PRN (14:30)
[2018-09-11] MEDS ORDERED: ONDANSETRON 2MG/ML, 2ML IVPush PRN (14:30)
[2018-09-11] MEDS ORDERED: LABETALOL 5MG/ML, 20ML IVPush PRN (14:30)
[2018-09-11] MEDS ORDERED: hydrALAzine 20 MG/ML, 1ML IVPush PRN (14:30)
[2018-09-11] MEDS ORDERED: ALBUTEROL/IPRATROPIUM 2.5MG/0.5MG, 3 ML NPPB SCH (15:00)
[2018-09-11] MEDS: ALBUTEROL/IPRATROPIUM 2.5MG/0.5MG, 3 ML NPPB SCH ×2 (15:00→19:50)
[2018-09-11 15:12] VITALS: BP 165/63
--- NOTE | 2018-09-11 15:15 | NUR ---
FIRST UNIT OF BLOOD STARTED WITH A SECOND RN CHECK. PT STATES UNDERSTANDING OF TRANSFUSION REACTION SYMPTOMS. PT GIVEN SANDWICH FROM [employer]ART PER REQUEST AND DIET ORDER. AWAITING ROOM ON FLOOR AT THIS TIME
--- NOTE | 2018-09-11 15:22 | NUR ---
REPORT GIVEN TO CAIN RN, PT READY FOR TRANSPORT
[2018-09-11 15:28] VITALS: BP 145/65
[2018-09-11 16:00] VITALS: BP 143/78
[2018-09-11 16:41] VITALS: BP 129/70
[2018-09-11] MEDS: MORPHINE SULFATE 4 MG/ML, 1ML IVPush PRN ×2 (17:38→21:55)
[2018-09-11] MEDS ORDERED: GOLYTELY 4,000ML ORAL.SOL PO ONE (18:00)
[2018-09-11 18:09] VITALS: BP 129/70
[2018-09-11 19:06] VITALS: BP 152/83
[2018-09-11] MEDS: BUDESONIDE 0.5 MG/2 ML INHA INH SCH (19:51)
[2018-09-11] MEDS: TEMPLATE NON-FORMULARY MED. (Fluticasone/Salmeterol** (Advair 500-50 Diskus**) 1 PUFF) IH SCH (21:00)
[2018-09-11] MEDS: MONTELUKAST 10 MG TABLET PO SCH (21:00)
[2018-09-11] MEDS ORDERED: CEFAZOLIN 1,000 MG IM SCH (21:00)
[2018-09-11] MEDS: PANTOPRAZOLE 40 MG IV IVPush SCH (21:54)
[2018-09-11] MEDS: CEFAZOLIN PMX 1GM/50ML 50 ML IV SCH (22:00)
[2018-09-11 22:11] LABS: MICROSCOPIC NOT IND
[2018-09-11 22:13] LABS: CULTURE INDICATED? NO
[2018-09-12] MEDS: TRAZODONE 50MG TABLET PO PRN ×4 (00:39→23:41)
[2018-09-12 01:40] VITALS: BP 159/88
[2018-09-12 06:24] LABS: ANION GAP 2 mmol/L (5-15); BASOPHILS # (AUTO) 0.05 x10^3/uL (0-0.1); BASOPHILS % (AUTO) 1 % (0-1); CALCIUM 7.8 mg/dL (8.5-10.1); CHLORIDE 102 mmol/L (98-107); CREATININE 0.56 mg/dL (0.7-1.3); EOSINOPHILS % (AUTO) 4 % (1-7); LYMPHOCYTES # (AUTO) 0.98 x10^3/uL (1-3.4); LYMPHOCYTES % (AUTO) 10 % (22-44); MD NO; MEAN CORPUSCULAR HEMOGLOBIN 26.4 pg (27.5-34.5); MEAN CORPUSCULAR HGB CONC 30.6 g/dL (33.2-36.2); MEAN CORPUSCULAR VOLUME 86.2 fL (81-97); MEAN PLATELET VOLUME 7.8 fL (7.4-10.4); MONOCYTES # (AUTO) 0.77 x10^3/uL (0.2-0.8); MONOCYTES % (AUTO) 8 % (2-9); NEUTROPHILS # (AUTO) 7.34 x10^3/uL (1.8-6.8); NEUTROPHILS % (AUTO) 77 % (42-75); PLATELET COUNT 297 x10^3/uL (130-400); RED BLOOD COUNT 2.81 x10^6/uL (4.38-5.82); RED CELL DISTRIBUTION WIDTH 20.5 % (9.4-14.8)
[2018-09-12] MEDS: CEFAZOLIN PMX 1GM/50ML 50 ML IV SCH ×2 (06:27→16:20)
[2018-09-12] MEDS: ALBUTEROL/IPRATROPIUM 2.5MG/0.5MG, 3 ML NPPB SCH ×4 (06:50→19:59)
[2018-09-12 07:34] VITALS: BP 143/66
[2018-09-12] MEDS: BUDESONIDE 0.5 MG/2 ML INHA INH SCH (09:00)
[2018-09-12] MEDS: TEMPLATE NON-FORMULARY MED. (Fluticasone/Salmeterol** (Advair 500-50 Diskus**) 1 PUFF) IH SCH ×2 (09:00→21:00)
[2018-09-12] MEDS: TEMPLATE NON-FORMULARY MED. (Tiotropium Bromide** (Spiriva**) 18 MCG) INH SCH (09:00)
[2018-09-12] MEDS: MORPHINE SULFATE 4 MG/ML, 1ML IVPush PRN ×3 (09:11→21:31)
[2018-09-12] MEDS: NS + 20MEQ KCL 1,000 ML IV SCH (09:12)
[2018-09-12] MEDS: FERROUS SULFATE 325 MG TABLET PO SCH (09:17)
[2018-09-12] MEDS: MULTIVITAMIN 1 TABLET PO SCH (09:17)
[2018-09-12] MEDS: VERAPAMIL ER 240MG TABLET.ER PO SCH (09:17)
[2018-09-12] MEDS: PANTOPRAZOLE 40 MG IV IVPush SCH (09:18)
[2018-09-12 13:15] VITALS: BP 125/72
[2018-09-12] MEDS ORDERED: PROPOFOL 10 MG/ML, 50ML ONE (14:00)
[2018-09-12] MEDS ORDERED: PROPOFOL 10 MG/ML, 20ML ONE (14:00)
[2018-09-12] MEDS ORDERED: IRON DEXTRAN COMPLEX 25 MG in SODIUM CHLORIDE 0.9% 50 ML IV ONE (16:00)
[2018-09-12] MEDS ORDERED: EPINEPHRINE 1 MG/ML, 1ML SQ PRN (16:30)
[2018-09-12] MEDS ORDERED: IRON DEXTRAN COMPLEX 2,250 MG in SODIUM CHLORIDE 0.9% 250 ML IV ONE (17:30)
[2018-09-12 19:07] VITALS: BP 159/78
[2018-09-12] MEDS: MONTELUKAST 10 MG TABLET PO SCH (21:00)
[2018-09-12] MEDS: PANTOPROZOLE 40MG TABLET PO SCH (21:31)
[2018-09-13] MEDS: CEFAZOLIN PMX 1GM/50ML 50 ML IV SCH ×2 (00:51→08:24)
[2018-09-13] MEDS: NS + 20MEQ KCL 1,000 ML IV SCH ×2 (00:51→10:00)
[2018-09-13 01:29] VITALS: BP 150/72
[2018-09-13] MEDS: MORPHINE SULFATE 4 MG/ML, 1ML IVPush PRN ×2 (01:46→08:24)
[2018-09-13] MEDS: PANTOPROZOLE 40MG TABLET PO SCH (05:19)
[2018-09-13] MEDS: ALBUTEROL/IPRATROPIUM 2.5MG/0.5MG, 3 ML NPPB SCH ×2 (07:00→10:30)
[2018-09-13 07:58] VITALS: BP 157/70
[2018-09-13] MEDS: VERAPAMIL ER 240MG TABLET.ER PO SCH (08:23)
[2018-09-13] MEDS: MULTIVITAMIN 1 TABLET PO SCH (08:23)
[2018-09-13] MEDS: FERROUS SULFATE 325 MG TABLET PO SCH (08:23)
[2018-09-13] MEDS: TEMPLATE NON-FORMULARY MED. (Fluticasone/Salmeterol** (Advair 500-50 Diskus**) 1 PUFF) IH SCH (08:24)
[2018-09-13] MEDS: TEMPLATE NON-FORMULARY MED. (Tiotropium Bromide** (Spiriva**) 18 MCG) INH SCH (08:24)
[2018-09-13] MEDS: BUDESONIDE 0.5 MG/2 ML INHA INH SCH (09:00)
[2018-09-13] MEDS ORDERED: CEPH-368 PO (10:20)
[2018-09-13] MEDS ORDERED: FURO-93 PO (10:20)
[2018-09-13] MEDS ORDERED: SUCR1TAB PO (10:20)
[2018-09-13] MEDS ORDERED: OMEP40CA6 PO (10:20)
[2018-09-13] MEDS ORDERED: ALBUTEROL/IPRATROPIUM 2.5MG/0.5MG, 3 ML NPPB PRN (11:00)
== END 2018-09-13 14:05 | disposition home or self-care (01) | DRG 377 ==
LOC: ED 14:25 → EDIP 14:26 → 4WST 15:40 → DCLOUNGE 09-13 13:54
PROVIDERS: ADMIT Family Medicine; ATTEND Family Medicine
PROC: 30233N1 Transfusion of Nonautologous Red Blood Cells into Peripheral Vein, Percutaneous Approach (ICD-10-PCS; principal; 2018-09-11)
PROC: 0DBP8ZZ Excision of Rectum, Via Natural or Artificial Opening Endoscopic (ICD-10-PCS; 2018-09-12)
DX: K92.1 Melena (principal); E43 Unspecified severe protein-calorie malnutrition; I50.30 Unspecified diastolic (congestive) heart failure; J44.1 Chronic obstructive pulmonary disease with (acute) exacerbation; Z68.41 Body mass index [BMI] 40.0-44.9, adult; N49.2 Inflammatory disorders of scrotum; R33.9 Retention of urine, unspecified; D50.0 Iron deficiency anemia secondary to blood loss (chronic); E66.9 Obesity, unspecified; I11.0 Hypertensive heart disease with heart failure; I48.91 Unspecified atrial fibrillation; K21.9 Gastro-esophageal reflux disease without esophagitis; N43.3 Hydrocele, unspecified; R09.02 Hypoxemia; Z82.49 Family history of ischemic heart disease and other diseases of the circulatory system; Z85.118 Personal history of other malignant neoplasm of bronchus and lung; Z80.3 Family history of malignant neoplasm of breast; Z87.11 Personal history of peptic ulcer disease; Z87.19 Personal history of other diseases of the digestive system; Z87.891 Personal history of nicotine dependence; Z90.2 Acquired absence of lung [part of]; Z99.81 Dependence on supplemental oxygen
CPT/HCPCS: 36415; 71045; 76870; 80048; 80053; 81003; 82728; 83540; 83550; 85014; 85018; 85025; 86850; 86900; 86923; 88305; 90471; 93005; 94640; G0378; J0690; J1750; J2704; J3480; J7620; J7626; C9113; J7050; P9016

== ENCOUNTER 2018-09-18 22:57 | Inpatient (IN) | payer MEDICARE ==
[~2018-09-18] VITALS: Ht 182.9 cm; Wt 134.5 kg
[~2018-09-18 22:57] MED LIST changes: +CEPH-368 PO; +IRON15TA3 PO
[2018-09-18 23:50] LABS: MEAN CORPUSCULAR HEMOGLOBIN 27.5 pg (27.5-34.5); MEAN CORPUSCULAR HGB CONC 30.4 g/dL (33.2-36.2); MEAN CORPUSCULAR VOLUME 90.5 fL (81-97); MEAN PLATELET VOLUME 7.8 fL (7.4-10.4); PLATELET COUNT 324 x10^3/uL (130-400); RED BLOOD COUNT 2.84 x10^6/uL (4.38-5.82); RED CELL DISTRIBUTION WIDTH 23.7 % (9.4-14.8)
[2018-09-18] MEDS ORDERED: MORPHINE SULFATE 4 MG/ML, 1ML ONE (23:50)
[2018-09-18] MEDS ORDERED: ONDANSETRON 2MG/ML, 2ML ONE (23:50)
[2018-09-18 23:58] LABS: ALANINE AMINOTRANSFERASE 38 U/L (12-78); ALBUMIN 2.8 g/dL (3.4-5.0); ANION GAP 2 mmol/L (5-15); CALCIUM 8.1 mg/dL (8.5-10.1); CHLORIDE 105 mmol/L (98-107)
[2018-09-19] MEDS ORDERED: ONDANSETRON 2MG/ML, 2ML IVPush ONE
[2018-09-19] MEDS ORDERED: ALBUTEROL/IPRATROPIUM 2.5MG/0.5MG, 3 ML NPPB ONE
[2018-09-19 00:01] LABS: ALKALINE PHOSPHATASE 68 U/L (45-117); BILIRUBIN,TOTAL 0.5 mg/dL (0.2-1.0); CREATININE 0.68 mg/dL (0.7-1.3); TOTAL PROTEIN 5.6 g/dL (6.4-8.2)
[2018-09-19 00:04] LABS: ANISOCYTOSIS 1+; BASOPHILS # (AUTO) 0.06 x10^3/uL (0-0.1); BASOPHILS % (AUTO) 0 % (0-1); EOSINOPHILS % (AUTO) 1 % (1-7); LYMPHOCYTES # (AUTO) 0.83 x10^3/uL (1-3.4); LYMPHOCYTES % (AUTO) 4 % (22-44); MD MORPH REVIEW ONLY; MONOCYTES # (AUTO) 0.78 x10^3/uL (0.2-0.8); MONOCYTES % (AUTO) 4 % (2-9); NEUTROPHILS # (AUTO) 17.02 x10^3/uL (1.8-6.8); NEUTROPHILS % (AUTO) 91 % (42-75); POLYCHROMASIA 1+
[2018-09-19 00:05] LABS: MICROCYTOSIS 1+; STOMATOCYTES 1+
[2018-09-19 00:06] LABS: <PLATELET ESTIMATE> ADEQUATE; <PLT MORPHOLOGY> NORMAL PLT MORPH
[2018-09-19] MEDS ORDERED: MORPHINE SULFATE 4 MG/ML, 1ML ONE ×3 (00:29→02:46)
--- NOTE | 2018-09-19 00:41 | NUR ---
PT MEDICATED PER MAR. POC DISCUSSED. PT DENIES FURTHER NEEDS AT THIS TIME. BED RAILS UPX2. CALL LIGHT ON LAP.
--- NOTE | 2018-09-19 00:50 | NUR ---
PT TO CT NOW
[2018-09-19] MEDS ORDERED: MORPHINE SULFATE 4 MG/ML, 1ML IVPush ONE ×3 (01:00→02:30)
--- NOTE | 2018-09-19 01:06 | NUR ---
PT HAS RETURNED FROM CT.
[2018-09-19] MEDS ORDERED: OMNIPAQUE 350 MG/ML, 150 ML BOTTLE ONE (01:28)
--- NOTE | 2018-09-19 02:15 | NUR ---
PT MEDICATED PER SEP. UNR AT BEDSIDE.
[2018-09-19 02:33] LABS: MICROSCOPIC NOT IND
[2018-09-19 02:38] LABS: CULTURE INDICATED? NO
[2018-09-19] MEDS: morphine SULFATE 10 MG/ML, 1ML IVPush PRN ×6 (02:59→21:49)
[2018-09-19] MEDS ORDERED: ONDANSETRON 2MG/ML, 2ML IVPush PRN (03:00)
[2018-09-19] MEDS ORDERED: ENALAPRILAT 1.25 MG/ML, 2ML IVPush PRN (03:00)
[2018-09-19 04:00] VITALS: BP 137/74
[2018-09-19] MEDS ORDERED: ALBUTEROL SULFATE 2.5 MG/3 ML NPPB PRN (04:00)
[2018-09-19] MEDS: SODIUM CHLORIDE 0.9% 1,000 ML IV SCH ×3 (04:34→20:26)
[2018-09-19] MEDS: ALBUTEROL/IPRATROPIUM 2.5MG/0.5MG, 3 ML NPPB SCH ×4 (07:00→19:58)
[2018-09-19] MEDS: BUDESONIDE 0.5 MG/2 ML INHA NPPB SCH ×2 (07:05→19:58)
[2018-09-19] MEDS: PANTOPRAZOLE 40 MG IV IVPush SCH (07:40)
[2018-09-19] MEDS: SUCRALFATE 1 GM/10 ML UDC PO SCH ×4 (07:40→20:38)
[2018-09-19] MEDS ORDERED: FUROSEMIDE 20 MG/2 ML IV SCH (09:00)
[2018-09-19] MEDS ORDERED: TEMPLATE NON-FORMULARY MED. (Fluticasone/Salmeterol** (Advair 500-50 Diskus**) 1 PUFF) IH SCH (09:00)
[2018-09-19 09:10] VITALS: BP 155/85
[2018-09-19] MEDS: SENNA/DOCUSATE TABLET PO SCH (09:13)
[2018-09-19] MEDS: VERAPAMIL ER 240MG TABLET.ER PO SCH (09:13)
[2018-09-19] MEDS: FERROUS SULFATE 325 MG TABLET PO SCH ×2 (09:13→20:27)
[2018-09-19] MEDS: PIPERACILLIN/TAZO/PMX 3.375GM 50 ML IV SCH ×3 (10:58→21:49)
[2018-09-19 12:03] LABS: ALANINE AMINOTRANSFERASE 32 U/L (12-78); ALBUMIN 2.8 g/dL (3.4-5.0); ANION GAP 2 mmol/L (5-15); CALCIUM 8.1 mg/dL (8.5-10.1); CHLORIDE 103 mmol/L (98-107); CREATININE 0.61 mg/dL (0.7-1.3)
[2018-09-19 12:05] LABS: ALKALINE PHOSPHATASE 71 U/L (45-117); BILIRUBIN,TOTAL 0.2 mg/dL (0.2-1.0); TOTAL PROTEIN 5.9 g/dL (6.4-8.2)
[2018-09-19 12:13] LABS: BASOPHILS # (AUTO) 0.02 x10^3/uL (0-0.1); BASOPHILS % (AUTO) 0 % (0-1); EOSINOPHILS # (AUTO) 0.45 x10^3/uL (0-0.4); EOSINOPHILS % (AUTO) 3 % (1-7); LYMPHOCYTES # (AUTO) 0.45 x10^3/uL (1-3.4); LYMPHOCYTES % (AUTO) 3 % (22-44); MEAN CORPUSCULAR HEMOGLOBIN 27.4 pg (27.5-34.5); MEAN CORPUSCULAR HGB CONC 30.2 g/dL (33.2-36.2); MEAN CORPUSCULAR VOLUME 90.6 fL (81-97); MEAN PLATELET VOLUME 7.8 fL (7.4-10.4); MONOCYTES # (AUTO) 0.86 x10^3/uL (0.2-0.8); MONOCYTES % (AUTO) 6 % (2-9); NEUTROPHILS # (AUTO) 12.44 x10^3/uL (1.8-6.8); NEUTROPHILS % (AUTO) 88 % (42-75); PLATELET COUNT 311 x10^3/uL (130-400); RED BLOOD COUNT 2.88 x10^6/uL (4.38-5.82); RED CELL DISTRIBUTION WIDTH 22.9 % (9.4-14.8)
[2018-09-19 12:14] LABS: MD NO
[2018-09-19 14:30] VITALS: BP 148/78
[2018-09-19] MEDS ORDERED: FLUMAZENIL 0.1 MG/1 ML, 5ML ONE (16:13)
[2018-09-19] MEDS ORDERED: MIDAZOLAM 1 MG/ML, 5ML ONE (16:13)
[2018-09-19] MEDS ORDERED: FENTANYL PF 100 MCG/2ML ONE ×2 (16:13)
[2018-09-19] MEDS ORDERED: NALOXONE 1 MG/ML, 2ML ONE (16:14)
[2018-09-19] MEDS ORDERED: LIDOCAINE-MPF 1%, 5ML ONE (16:14)
[2018-09-19 19:59] VITALS: BP 137/60
[2018-09-19] MEDS ORDERED: DIPHENHYDRAMINE 50 MG CAPSULE PO ONE (22:00)
[2018-09-20] VITALS (10 sets, daily range): BP systolic 118–150; BP diastolic 65–80
[2018-09-20] MEDS: morphine SULFATE 10 MG/ML, 1ML IVPush PRN ×5 (00:57→22:59)
[2018-09-20] MEDS: SODIUM CHLORIDE 0.9% 1,000 ML IV SCH ×2 (04:16→17:55)
[2018-09-20] MEDS: PIPERACILLIN/TAZO/PMX 3.375GM 50 ML IV SCH ×4 (04:19→22:58)
[2018-09-20] MEDS: ALBUTEROL/IPRATROPIUM 2.5MG/0.5MG, 3 ML NPPB SCH ×4 (06:36→18:34)
[2018-09-20] MEDS: BUDESONIDE 0.5 MG/2 ML INHA NPPB SCH ×2 (06:36→18:34)
[2018-09-20 07:10] LABS: ALANINE AMINOTRANSFERASE 24 U/L (12-78); ALBUMIN 2.6 g/dL (3.4-5.0); CALCIUM 7.9 mg/dL (8.5-10.1); CREATININE 0.58 mg/dL (0.7-1.3)
[2018-09-20 07:16] LABS: ALKALINE PHOSPHATASE 56 U/L (45-117); ANION GAP 3 mmol/L (5-15); BILIRUBIN,TOTAL 0.3 mg/dL (0.2-1.0); CHLORIDE 102 mmol/L (98-107); TOTAL PROTEIN 5.4 g/dL (6.4-8.2)
[2018-09-20 07:19] LABS: MEAN CORPUSCULAR HEMOGLOBIN 26.3 pg (27.5-34.5); MEAN CORPUSCULAR VOLUME 90.5 fL (81-97); MEAN PLATELET VOLUME 8.2 fL (7.4-10.4); PLATELET COUNT 292 x10^3/uL (130-400); RED BLOOD COUNT 2.49 x10^6/uL (4.38-5.82); RED CELL DISTRIBUTION WIDTH 22.4 % (9.4-14.8)
[2018-09-20 07:21] LABS: MEAN CORPUSCULAR HGB CONC 29.1 g/dL (33.2-36.2)
[2018-09-20 07:24] LABS: BASOPHILS # (AUTO) 0.01 x10^3/uL (0-0.1); BASOPHILS % (AUTO) 0 % (0-1); EOSINOPHILS # (AUTO) 0.02 x10^3/uL (0-0.4); EOSINOPHILS % (AUTO) 0 % (1-7); LYMPHOCYTES # (AUTO) 0.82 x10^3/uL (1-3.4); LYMPHOCYTES % (AUTO) 7 % (22-44); MD MORPH REVIEW ONLY; MONOCYTES # (AUTO) 1.04 x10^3/uL (0.2-0.8); MONOCYTES % (AUTO) 9 % (2-9); NEUTROPHILS # (AUTO) 10.32 x10^3/uL (1.8-6.8); NEUTROPHILS % (AUTO) 84 % (42-75)
[2018-09-20 07:25] LABS: ANISOCYTOSIS 1+; HYPOCHROMIA 1+; MICROCYTOSIS 1+; POLYCHROMASIA 1+
[2018-09-20 07:26] LABS: <PLATELET ESTIMATE> ADEQUATE; <PLT MORPHOLOGY> NORMAL PLT MORPH; STOMATOCYTES 1+
[2018-09-20] MEDS: PANTOPRAZOLE 40 MG IV IVPush SCH (07:45)
[2018-09-20] MEDS: SUCRALFATE 1 GM/10 ML UDC PO SCH ×4 (07:45→20:04)
[2018-09-20] MEDS ORDERED: MORPHINE SULFATE 4 MG/ML, 1ML ONE ×3 (08:10→22:50)
[2018-09-20] MEDS: FERROUS SULFATE 325 MG TABLET PO SCH ×2 (10:38→20:03)
[2018-09-20] MEDS: SENNA/DOCUSATE TABLET PO SCH (10:39)
[2018-09-20] MEDS: VERAPAMIL ER 240MG TABLET.ER PO SCH (10:39)
[2018-09-20] MEDS ORDERED: MAGNESIUM SULFATE PMX 2GM/50ML 50 ML IV ONE (11:00)
[2018-09-20] MEDS ORDERED: FLUMAZENIL 0.1 MG/1 ML, 5ML ONE (13:26)
[2018-09-20] MEDS ORDERED: FENTANYL PF 100 MCG/2ML ONE ×2 (13:26)
[2018-09-20] MEDS ORDERED: MIDAZOLAM 1 MG/ML, 5ML ONE (13:26)
[2018-09-20] MEDS ORDERED: NALOXONE 1 MG/ML, 2ML ONE (13:26)
[2018-09-20] MEDS ORDERED: LIDOCAINE-MPF 1%, 5ML ONE (13:28)
[2018-09-20 19:49] LABS: MEAN CORPUSCULAR HGB CONC 30.1 g/dL (33.2-36.2); MEAN CORPUSCULAR VOLUME 89.7 fL (81-97); MEAN PLATELET VOLUME 7.9 fL (7.4-10.4); PLATELET COUNT 305 x10^3/uL (130-400); RED BLOOD COUNT 2.71 x10^6/uL (4.38-5.82); RED CELL DISTRIBUTION WIDTH 21.3 % (9.4-14.8)
[2018-09-20 20:04] LABS: ANISOCYTOSIS 1+; BASOPHILS # (AUTO) 0.01 x10^3/uL (0-0.1); BASOPHILS % (AUTO) 0 % (0-1); EOSINOPHILS % (AUTO) 0 % (1-7); LYMPHOCYTES # (AUTO) 0.36 x10^3/uL (1-3.4); LYMPHOCYTES % (AUTO) 3 % (22-44); MD MORPH REVIEW ONLY; MICROCYTOSIS 1+; MONOCYTES # (AUTO) 0.81 x10^3/uL (0.2-0.8); MONOCYTES % (AUTO) 6 % (2-9); NEUTROPHILS # (AUTO) 12.71 x10^3/uL (1.8-6.8); NEUTROPHILS % (AUTO) 91 % (42-75); POLYCHROMASIA 1+; SPHEROCYTES 1+
[2018-09-20 20:05] LABS: <PLATELET ESTIMATE> ADEQUATE; <PLT MORPHOLOGY> NORMAL PLT MORPH
[2018-09-20] MEDS: ZOLPIDEM 5MG TABLET PO PRN (22:59)
[2018-09-21] MEDS: SODIUM CHLORIDE 0.9% 1,000 ML IV SCH ×2 (01:10→08:30)
[2018-09-21] MEDS ORDERED: MORPHINE SULFATE 4 MG/ML, 1ML ONE ×2 (02:25→05:31)
[2018-09-21] MEDS: morphine SULFATE 10 MG/ML, 1ML IVPush PRN ×7 (02:32→22:42)
[2018-09-21 02:42] VITALS: BP 104/50
[2018-09-21] MEDS: PIPERACILLIN/TAZO/PMX 3.375GM 50 ML IV SCH ×3 (04:42→17:35)
[2018-09-21 06:21] LABS: BASOPHILS # (AUTO) 0.07 x10^3/uL (0-0.1); BASOPHILS % (AUTO) 1 % (0-1); EOSINOPHILS # (AUTO) 0.02 x10^3/uL (0-0.4); EOSINOPHILS % (AUTO) 0 % (1-7); LYMPHOCYTES # (AUTO) 0.89 x10^3/uL (1-3.4); LYMPHOCYTES % (AUTO) 8 % (22-44); MD NO; MEAN CORPUSCULAR HEMOGLOBIN 27.8 pg (27.5-34.5); MEAN CORPUSCULAR HGB CONC 31.2 g/dL (33.2-36.2); MEAN CORPUSCULAR VOLUME 89.1 fL (81-97); MEAN PLATELET VOLUME 8.2 fL (7.4-10.4); MONOCYTES # (AUTO) 1.14 x10^3/uL (0.2-0.8); MONOCYTES % (AUTO) 10 % (2-9); NEUTROPHILS # (AUTO) 9.28 x10^3/uL (1.8-6.8); NEUTROPHILS % (AUTO) 82 % (42-75); PLATELET COUNT 295 x10^3/uL (130-400); RED BLOOD COUNT 2.67 x10^6/uL (4.38-5.82); RED CELL DISTRIBUTION WIDTH 21.2 % (9.4-14.8)
[2018-09-21 06:32] LABS: ANION GAP 4 mmol/L (5-15); CALCIUM 7.7 mg/dL (8.5-10.1); CHLORIDE 99 mmol/L (98-107); CREATININE 0.53 mg/dL (0.7-1.3)
[2018-09-21 07:19] VITALS: BP 120/81
[2018-09-21] MEDS: SUCRALFATE 1 GM/10 ML UDC PO SCH ×4 (08:10→22:04)
[2018-09-21] MEDS: VERAPAMIL ER 240MG TABLET.ER PO SCH (08:10)
[2018-09-21] MEDS: PANTOPRAZOLE 40 MG IV IVPush SCH (08:10)
[2018-09-21] MEDS: FERROUS SULFATE 325 MG TABLET PO SCH ×2 (08:11→22:04)
[2018-09-21] MEDS: SENNA/DOCUSATE TABLET PO SCH (08:11)
[2018-09-21] MEDS: BUDESONIDE 0.5 MG/2 ML INHA NPPB SCH ×2 (09:00→19:58)
[2018-09-21] MEDS: ALBUTEROL/IPRATROPIUM 2.5MG/0.5MG, 3 ML NPPB SCH ×3 (10:21→19:58)
[2018-09-21 13:05] VITALS: BP 119/62
[2018-09-21 20:11] VITALS: BP 135/66
[2018-09-21] MEDS: ZOLPIDEM 5MG TABLET PO PRN (22:48)
[2018-09-22] MEDS: PIPERACILLIN/TAZO/PMX 3.375GM 50 ML IV SCH ×4 (00:15→16:58)
[2018-09-22 01:41] VITALS: BP 137/68
[2018-09-22] MEDS: morphine SULFATE 10 MG/ML, 1ML IVPush PRN ×4 (01:56→20:36)
[2018-09-22] MEDS ORDERED: SODIUM CHLORIDE 0.9% 1,000 ML IV SCH (02:41)
[2018-09-22 05:56] LABS: BASOPHILS # (AUTO) 0.06 x10^3/uL (0-0.1); BASOPHILS % (AUTO) 1 % (0-1); EOSINOPHILS # (AUTO) 0.01 x10^3/uL (0-0.4); EOSINOPHILS % (AUTO) 0 % (1-7); LYMPHOCYTES # (AUTO) 0.95 x10^3/uL (1-3.4); LYMPHOCYTES % (AUTO) 9 % (22-44); MD NO; MEAN CORPUSCULAR HEMOGLOBIN 27.5 pg (27.5-34.5); MEAN CORPUSCULAR HGB CONC 30.8 g/dL (33.2-36.2); MEAN CORPUSCULAR VOLUME 89.2 fL (81-97); MEAN PLATELET VOLUME 7.9 fL (7.4-10.4); MONOCYTES # (AUTO) 1.05 x10^3/uL (0.2-0.8); MONOCYTES % (AUTO) 10 % (2-9); NEUTROPHILS # (AUTO) 8.15 x10^3/uL (1.8-6.8); NEUTROPHILS % (AUTO) 80 % (42-75); PLATELET COUNT 315 x10^3/uL (130-400); RED BLOOD COUNT 2.65 x10^6/uL (4.38-5.82); RED CELL DISTRIBUTION WIDTH 20.4 % (9.4-14.8)
[2018-09-22 06:09] LABS: CALCIUM 8.2 mg/dL (8.5-10.1); CREATININE 0.44 mg/dL (0.7-1.3)
[2018-09-22 06:23] LABS: ANION GAP 2 mmol/L (5-15); CHLORIDE 99 mmol/L (98-107)
[2018-09-22 07:00] VITALS: BP 136/60
[2018-09-22] MEDS: ALBUTEROL/IPRATROPIUM 2.5MG/0.5MG, 3 ML NPPB SCH ×4 (07:05→19:20)
[2018-09-22] MEDS: BUDESONIDE 0.5 MG/2 ML INHA NPPB SCH ×2 (07:05→19:20)
[2018-09-22] MEDS: SENNA/DOCUSATE TABLET PO SCH (09:00)
[2018-09-22] MEDS: FERROUS SULFATE 325 MG TABLET PO SCH ×2 (09:00→20:36)
[2018-09-22] MEDS: PANTOPRAZOLE 40 MG IV IVPush SCH (09:01)
[2018-09-22] MEDS: SUCRALFATE 1 GM/10 ML UDC PO SCH ×4 (09:01→20:35)
[2018-09-22] MEDS: VERAPAMIL ER 240MG TABLET.ER PO SCH (09:01)
[2018-09-22] MEDS ORDERED: POLYETHYLENE GLYCOL 17 GM PACKET PO PRN (11:00)
[2018-09-22] MEDS ORDERED: DOCUSATE 100 MG CAPSULE PO PRN (11:00)
[2018-09-22] MEDS ORDERED: BISACODYL 10 MG SUPP PR PRN (11:00)
[2018-09-22] MEDS ORDERED: MAGNESIUM CITRATE 300ML ORAL SOL PO PRN ×2 (11:00→11:30)
[2018-09-22] MEDS ORDERED: MAGNESIUM CITRATE 300ML ORAL SOL ONE (11:20)
[2018-09-22 12:00] VITALS: BP 143/70
[2018-09-22 19:51] VITALS: BP 150/70
[2018-09-23] MEDS: morphine SULFATE 10 MG/ML, 1ML IVPush PRN ×6 (00:13→21:19)
[2018-09-23] MEDS: PIPERACILLIN/TAZO/PMX 3.375GM 50 ML IV SCH ×5 (00:13→23:57)
[2018-09-23 02:18] VITALS: BP 166/75
[2018-09-23] MEDS: ALBUTEROL/IPRATROPIUM 2.5MG/0.5MG, 3 ML NPPB SCH ×3 (07:08→20:00)
[2018-09-23] MEDS: BUDESONIDE 0.5 MG/2 ML INHA NPPB SCH ×2 (07:08→20:38)
[2018-09-23 07:15] VITALS: BP 122/87
[2018-09-23] MEDS: SENNA/DOCUSATE TABLET PO SCH (08:28)
[2018-09-23] MEDS: VERAPAMIL ER 240MG TABLET.ER PO SCH (08:41)
[2018-09-23] MEDS: FERROUS SULFATE 325 MG TABLET PO SCH ×2 (08:41→21:19)
[2018-09-23] MEDS: SUCRALFATE 1 GM/10 ML UDC PO SCH ×4 (08:41→21:19)
[2018-09-23] MEDS: PANTOPRAZOLE 40 MG IV IVPush SCH (08:41)
[2018-09-23 09:38] LABS: MD YES
[2018-09-23 09:40] LABS: BASOPHILS # (AUTO) 0.05 x10^3/uL (0-0.1); BASOPHILS % (AUTO) 0 % (0-1); EOSINOPHILS # (AUTO) 0.01 x10^3/uL (0-0.4); EOSINOPHILS % (AUTO) 0 % (1-7); LYMPHOCYTES # (AUTO) 0.81 x10^3/uL (1-3.4); LYMPHOCYTES % (AUTO) 8 % (22-44); MEAN CORPUSCULAR HEMOGLOBIN 26.4 pg (27.5-34.5); MEAN CORPUSCULAR HGB CONC 29.6 g/dL (33.2-36.2); MEAN CORPUSCULAR VOLUME 89.5 fL (81-97); MEAN PLATELET VOLUME 8.5 fL (7.4-10.4); MONOCYTES # (AUTO) 0.87 x10^3/uL (0.2-0.8); MONOCYTES % (AUTO) 8 % (2-9); NEUTROPHILS # (AUTO) 8.94 x10^3/uL (1.8-6.8); NEUTROPHILS % (AUTO) 84 % (42-75); PLATELET COUNT 322 x10^3/uL (130-400); RED CELL DISTRIBUTION WIDTH 20.3 % (9.4-14.8)
[2018-09-23 13:45] VITALS: BP 145/55
[2018-09-23 14:01] LABS: BAND#(MANUAL) 0.11 x10^3/uL; BANDS%(MANUAL) 1 % (0-7); LYMPH#(MANUAL) 0.75 x10^3/uL (1-3.4); LYMPHS% (MANUAL) 7 % (22-44); MONOS#(MANUAL) 0.96 x10^3/uL (0.3-2.7); MONOS% (MANUAL) 9 % (2-9); SEG#(MANUAL) 8.88 x10^3/uL (1.8-6.8); SEGS% (MANUAL) 83 % (42-75)
[2018-09-23 14:03] LABS: ANISOCYTOSIS 2+; HYPOCHROMIA 1+; POLYCHROMASIA 1+
[2018-09-23 14:04] LABS: <PLATELET ESTIMATE> ADEQUATE; <PLT MORPHOLOGY> NORMAL PLT MORPH; OVALOCYTES 1+
[2018-09-23 14:05] LABS: BASOPHILLIC STIPPLING 1+
[2018-09-23 18:52] VITALS: BP 138/67
[2018-09-24] MEDS: ALBUTEROL/IPRATROPIUM 2.5MG/0.5MG, 3 ML NPPB SCH ×5 (03:47→20:24)
[2018-09-24 03:49] VITALS: BP 154/73
[2018-09-24] MEDS: PIPERACILLIN/TAZO/PMX 3.375GM 50 ML IV SCH ×3 (05:50→20:34)
[2018-09-24 05:52] LABS: BASOPHILS # (AUTO) 0.05 x10^3/uL (0-0.1); BASOPHILS % (AUTO) 1 % (0-1); EOSINOPHILS # (AUTO) 0.05 x10^3/uL (0-0.4); EOSINOPHILS % (AUTO) 1 % (1-7); LYMPHOCYTES # (AUTO) 0.57 x10^3/uL (1-3.4); LYMPHOCYTES % (AUTO) 5 % (22-44); MD NO; MEAN CORPUSCULAR HEMOGLOBIN 26.5 pg (27.5-34.5); MEAN CORPUSCULAR HGB CONC 30.1 g/dL (33.2-36.2); MEAN PLATELET VOLUME 7.9 fL (7.4-10.4); MONOCYTES # (AUTO) 0.92 x10^3/uL (0.2-0.8); MONOCYTES % (AUTO) 9 % (2-9); NEUTROPHILS # (AUTO) 9.26 x10^3/uL (1.8-6.8); NEUTROPHILS % (AUTO) 85 % (42-75); PLATELET COUNT 360 x10^3/uL (130-400); RED BLOOD COUNT 2.81 x10^6/uL (4.38-5.82); RED CELL DISTRIBUTION WIDTH 19.7 % (9.4-14.8)
[2018-09-24 06:02] LABS: ANION GAP 0 mmol/L (5-15); CALCIUM 8.2 mg/dL (8.5-10.1); CHLORIDE 96 mmol/L (98-107)
[2018-09-24] MEDS: BUDESONIDE 0.5 MG/2 ML INHA NPPB SCH ×2 (07:32→20:24)
[2018-09-24 08:05] VITALS: BP 148/77
[2018-09-24] MEDS: SENNA/DOCUSATE TABLET PO SCH (08:17)
[2018-09-24] MEDS: SUCRALFATE 1 GM/10 ML UDC PO SCH ×4 (08:17→20:35)
[2018-09-24] MEDS: PANTOPRAZOLE 40 MG IV IVPush SCH (08:17)
[2018-09-24] MEDS: VERAPAMIL ER 240MG TABLET.ER PO SCH (08:18)
[2018-09-24] MEDS: FERROUS SULFATE 325 MG TABLET PO SCH ×2 (08:18→20:35)
[2018-09-24] MEDS: morphine SULFATE 10 MG/ML, 1ML IVPush PRN ×3 (09:07→20:35)
[2018-09-24 12:42] VITALS: BP 163/71
[2018-09-24 21:26] VITALS: BP_SYST 159; BP_SYST 162; BP_DIAS 67; BP_DIAS 72
[2018-09-25] MEDS: PIPERACILLIN/TAZO/PMX 3.375GM 50 ML IV SCH ×4 (02:08→19:57)
[2018-09-25] MEDS: morphine SULFATE 10 MG/ML, 1ML IVPush PRN ×7 (02:12→23:06)
[2018-09-25 02:24] VITALS: BP 162/72
[2018-09-25] MEDS: BUDESONIDE 0.5 MG/2 ML INHA NPPB SCH ×2 (06:46→11:48)
[2018-09-25] MEDS: ALBUTEROL/IPRATROPIUM 2.5MG/0.5MG, 3 ML NPPB SCH ×4 (06:46→15:17)
[2018-09-25 07:47] VITALS: BP 169/89
[2018-09-25 07:49] LABS: CALCIUM 8.7 mg/dL (8.5-10.1); CHLORIDE 99 mmol/L (98-107)
[2018-09-25 07:51] LABS: ANION GAP 4 mmol/L (5-15); CREATININE 0.52 mg/dL (0.7-1.3); MEAN CORPUSCULAR HEMOGLOBIN 25.9 pg (27.5-34.5); MEAN CORPUSCULAR VOLUME 87.7 fL (81-97); PLATELET COUNT 409 x10^3/uL (130-400); RED BLOOD COUNT 3.17 x10^6/uL (4.38-5.82); RED CELL DISTRIBUTION WIDTH 20.7 % (9.4-14.8)
[2018-09-25 08:36] LABS: BASOPHILS # (AUTO) 0.06 x10^3/uL (0-0.1); BASOPHILS % (AUTO) 1 % (0-1); EOSINOPHILS # (AUTO) 0.09 x10^3/uL (0-0.4); EOSINOPHILS % (AUTO) 1 % (1-7); LYMPHOCYTES # (AUTO) 0.62 x10^3/uL (1-3.4); LYMPHOCYTES % (AUTO) 6 % (22-44); MD SCAN; MONOCYTES % (AUTO) 8 % (2-9); NEUTROPHILS # (AUTO) 8.23 x10^3/uL (1.8-6.8); NEUTROPHILS % (AUTO) 84 % (42-75)
[2018-09-25] MEDS: SUCRALFATE 1 GM/10 ML UDC PO SCH ×4 (08:54→19:57)
[2018-09-25] MEDS: PANTOPRAZOLE 40 MG IV IVPush SCH (08:54)
[2018-09-25] MEDS: SENNA/DOCUSATE TABLET PO SCH (08:55)
[2018-09-25] MEDS: VERAPAMIL ER 240MG TABLET.ER PO SCH (08:55)
[2018-09-25] MEDS: FERROUS SULFATE 325 MG TABLET PO SCH ×2 (08:55→19:57)
[2018-09-25 10:17] LABS: MEAN CORPUSCULAR HGB CONC 29.6 g/dL (33.2-36.2)
[2018-09-25 13:45] VITALS: BP 175/72
[2018-09-25 19:30] VITALS: BP 146/73
[2018-09-26] MEDS: PIPERACILLIN/TAZO/PMX 3.375GM 50 ML IV SCH ×4 (02:07→21:40)
[2018-09-26 02:13] VITALS: BP 149/72
[2018-09-26] MEDS: morphine SULFATE 10 MG/ML, 1ML IVPush PRN ×6 (05:49→22:19)
[2018-09-26] MEDS: ALBUTEROL/IPRATROPIUM 2.5MG/0.5MG, 3 ML NPPB SCH ×4 (06:24→19:17)
[2018-09-26] MEDS: BUDESONIDE 0.5 MG/2 ML INHA NPPB SCH ×2 (06:24→21:00)
[2018-09-26 08:01] VITALS: BP 155/78
[2018-09-26] MEDS: SUCRALFATE 1 GM/10 ML UDC PO SCH ×4 (08:18→21:39)
[2018-09-26] MEDS: PANTOPRAZOLE 40 MG IV IVPush SCH (08:18)
[2018-09-26] MEDS: SENNA/DOCUSATE TABLET PO SCH (09:00)
[2018-09-26] MEDS: FERROUS SULFATE 325 MG TABLET PO SCH ×2 (10:04→21:39)
[2018-09-26] MEDS: VERAPAMIL ER 240MG TABLET.ER PO SCH (10:04)
[2018-09-26 13:32] VITALS: BP 105/57
[2018-09-26 19:32] VITALS: BP 156/76
[2018-09-27 01:14] VITALS: BP 117/70
[2018-09-27] MEDS: morphine SULFATE 10 MG/ML, 1ML IVPush PRN ×4 (01:38→11:58)
[2018-09-27] MEDS: PIPERACILLIN/TAZO/PMX 3.375GM 50 ML IV SCH ×4 (03:44→21:36)
[2018-09-27] MEDS: ALBUTEROL/IPRATROPIUM 2.5MG/0.5MG, 3 ML NPPB SCH ×4 (06:29→19:34)
[2018-09-27] MEDS: BUDESONIDE 0.5 MG/2 ML INHA NPPB SCH ×2 (06:29→19:34)
[2018-09-27 06:35] LABS: MD YES
[2018-09-27 06:48] LABS: MEAN CORPUSCULAR HEMOGLOBIN 25.7 pg (27.5-34.5); MEAN CORPUSCULAR HGB CONC 29.9 g/dL (33.2-36.2); MEAN CORPUSCULAR VOLUME 85.9 fL (81-97); MEAN PLATELET VOLUME 7.2 fL (7.4-10.4); PLATELET COUNT 426 x10^3/uL (130-400); RED BLOOD COUNT 3.27 x10^6/uL (4.38-5.82); RED CELL DISTRIBUTION WIDTH 19.8 % (9.4-14.8)
[2018-09-27 07:00] VITALS: BP 157/79
[2018-09-27 07:24] LABS: BASOPHILS # (AUTO) 0.05 x10^3/uL (0-0.1); BASOPHILS % (AUTO) 1 % (0-1); EOSINOPHILS # (AUTO) 0.08 x10^3/uL (0-0.4); EOSINOPHILS % (AUTO) 1 % (1-7); LYMPHOCYTES # (AUTO) 0.76 x10^3/uL (1-3.4); LYMPHOCYTES % (AUTO) 9 % (22-44); MONOCYTES # (AUTO) 0.84 x10^3/uL (0.2-0.8); MONOCYTES % (AUTO) 10 % (2-9); NEUTROPHILS # (AUTO) 7.01 x10^3/uL (1.8-6.8); NEUTROPHILS % (AUTO) 80 % (42-75)
[2018-09-27 07:27] LABS: EOS#(MANUAL) 0.17 x10^3/uL (0.0-0.4); EOS% (MANUAL) 2 % (1-7); LYMPH#(MANUAL) 0.96 x10^3/uL (1-3.4); LYMPHS% (MANUAL) 11 % (22-44); MONOS#(MANUAL) 0.35 x10^3/uL (0.3-2.7); MONOS% (MANUAL) 4 % (2-9); SEG#(MANUAL) 7.22 x10^3/uL (1.8-6.8); SEGS% (MANUAL) 83 % (42-75)
[2018-09-27 07:28] LABS: ANISOCYTOSIS 1+
[2018-09-27 07:29] LABS: HYPOCHROMIA 1+; POLYCHROMASIA 1+
[2018-09-27 07:30] LABS: <PLATELET ESTIMATE> INCREASED; <PLT MORPHOLOGY> NORMAL PLT MORPH; OVALOCYTES 1+
[2018-09-27] MEDS: PANTOPRAZOLE 40 MG IV IVPush SCH (07:42)
[2018-09-27] MEDS: VERAPAMIL ER 240MG TABLET.ER PO SCH (07:42)
[2018-09-27] MEDS: FERROUS SULFATE 325 MG TABLET PO SCH ×3 (07:42→21:35)
[2018-09-27] MEDS: SUCRALFATE 1 GM/10 ML UDC PO SCH ×4 (07:42→21:36)
[2018-09-27] MEDS: SENNA/DOCUSATE TABLET PO SCH (07:48)
[2018-09-27] MEDS ORDERED: OMNIPAQUE 350 MG/ML, 100ML BOTTLE ONE (11:34)
[2018-09-27] MEDS: OXYcodone/APAP 10/325MG TABLET PO PRN ×3 (12:29→23:04)
[2018-09-27 13:00] VITALS: BP 120/70
[2018-09-27 18:37] VITALS: BP 144/82
[2018-09-28 00:47] VITALS: BP 124/70
[2018-09-28] MEDS: OXYcodone/APAP 10/325MG TABLET PO PRN ×3 (03:21→17:17)
[2018-09-28] MEDS: PIPERACILLIN/TAZO/PMX 3.375GM 50 ML IV SCH (04:05)
[2018-09-28] MEDS: ALBUTEROL/IPRATROPIUM 2.5MG/0.5MG, 3 ML NPPB SCH ×4 (06:40→20:40)
[2018-09-28] MEDS: BUDESONIDE 0.5 MG/2 ML INHA NPPB SCH ×2 (06:40→20:40)
[2018-09-28 07:38] VITALS: BP 159/82
[2018-09-28] MEDS: VERAPAMIL ER 240MG TABLET.ER PO SCH (07:57)
[2018-09-28] MEDS: SENNA/DOCUSATE TABLET PO SCH (07:57)
[2018-09-28] MEDS: FERROUS SULFATE 325 MG TABLET PO SCH ×3 (07:57→21:07)
[2018-09-28] MEDS: PANTOPRAZOLE 40 MG IV IVPush SCH (07:57)
[2018-09-28] MEDS: SUCRALFATE 1 GM/10 ML UDC PO SCH ×4 (07:57→21:07)
[2018-09-28] MEDS ORDERED: FUROSEMIDE 40 MG/4 ML IV ONE (08:30)
[2018-09-28] MEDS: ENOXAPARIN 40 MG/0.4 ML SQ SCH (11:14)
[2018-09-28] MEDS ORDERED: FUROSEMIDE 20 MG TABLET PO SCH (12:00)
[2018-09-28 13:32] VITALS: BP 159/71
[2018-09-28] MEDS ORDERED: IMATINIB 100 MG TABLET PO SCH (17:00)
[2018-09-28 19:29] VITALS: BP 162/73
[2018-09-29 01:19] VITALS: BP 151/72
[2018-09-29] MEDS: OXYcodone/APAP 10/325MG TABLET PO PRN ×3 (02:20→13:21)
[2018-09-29 06:34] LABS: BASOPHILS # (AUTO) 0.04 x10^3/uL (0-0.1); BASOPHILS % (AUTO) 1 % (0-1); EOSINOPHILS # (AUTO) 0.21 x10^3/uL (0-0.4); EOSINOPHILS % (AUTO) 3 % (1-7); LYMPHOCYTES # (AUTO) 0.98 x10^3/uL (1-3.4); LYMPHOCYTES % (AUTO) 13 % (22-44); MD NO; MEAN CORPUSCULAR HEMOGLOBIN 26.4 pg (27.5-34.5); MEAN CORPUSCULAR HGB CONC 30.7 g/dL (33.2-36.2); MEAN CORPUSCULAR VOLUME 86.1 fL (81-97); MEAN PLATELET VOLUME 7.5 fL (7.4-10.4); MONOCYTES # (AUTO) 0.61 x10^3/uL (0.2-0.8); MONOCYTES % (AUTO) 8 % (2-9); NEUTROPHILS # (AUTO) 5.55 x10^3/uL (1.8-6.8); NEUTROPHILS % (AUTO) 75 % (42-75); PLATELET COUNT 386 x10^3/uL (130-400); RED BLOOD COUNT 3.16 x10^6/uL (4.38-5.82); RED CELL DISTRIBUTION WIDTH 19.5 % (9.4-14.8)
[2018-09-29] MEDS: BUDESONIDE 0.5 MG/2 ML INHA NPPB SCH (06:55)
[2018-09-29] MEDS: ALBUTEROL/IPRATROPIUM 2.5MG/0.5MG, 3 ML NPPB SCH ×2 (06:55→11:15)
[2018-09-29 07:40] VITALS: BP 149/75
[2018-09-29] MEDS: PANTOPRAZOLE 40 MG IV IVPush SCH (08:40)
[2018-09-29] MEDS: SUCRALFATE 1 GM/10 ML UDC PO SCH ×2 (08:40→12:16)
[2018-09-29] MEDS: VERAPAMIL ER 240MG TABLET.ER PO SCH (08:40)
[2018-09-29] MEDS: FERROUS SULFATE 325 MG TABLET PO SCH (08:40)
[2018-09-29] MEDS: SENNA/DOCUSATE TABLET PO SCH (08:41)
[2018-09-29] MEDS: ENOXAPARIN 40 MG/0.4 ML SQ SCH (10:48)
[2018-09-29] MEDS ORDERED: FUROSEMIDE 20 MG TABLET PO ONE (12:00)
[2018-09-29] MEDS ORDERED: OXYC-432 PO (12:12)
[2018-09-29] MEDS ORDERED: MORP15TA3 PO (12:12)
[2018-09-29] MEDS ORDERED: IMATINIB 100 MG TABLET PO SCH (13:00)
[2018-09-29 13:57] VITALS: BP 142/73
[2018-09-29] MEDS ORDERED: FURO-93 PO (15:46)
[2018-09-29] MEDS ORDERED: ENOXAPARIN 30 MG/0.3 ML SQ SCH (21:00)
== END 2018-09-29 16:10 | disposition home or self-care (01) | DRG 543 ==
LOC: ED 09-19 01:04 → EDIP 09-19 02:41 → 4WST 09-19 03:55 → 4EST 09-23 05:40
PROVIDERS: ADMIT Family Medicine; ATTEND Family Medicine
PROC: 0WBH3ZX Excision of Retroperitoneum, Percutaneous Approach, Diagnostic (ICD-10-PCS; principal; 2018-09-20)
PROC: 30233N1 Transfusion of Nonautologous Red Blood Cells into Peripheral Vein, Percutaneous Approach (ICD-10-PCS; 2018-09-20)
DX: C49.A3 Gastrointestinal stromal tumor of small intestine (principal); K92.2 Gastrointestinal hemorrhage, unspecified; Z68.41 Body mass index [BMI] 40.0-44.9, adult; E46 Unspecified protein-calorie malnutrition; D50.0 Iron deficiency anemia secondary to blood loss (chronic); N50.819 Testicular pain, unspecified; E66.9 Obesity, unspecified; I48.91 Unspecified atrial fibrillation; J43.9 Emphysema, unspecified; I50.9 Heart failure, unspecified; I11.0 Hypertensive heart disease with heart failure; Z82.49 Family history of ischemic heart disease and other diseases of the circulatory system; Z85.3 Personal history of malignant neoplasm of breast; Z80.3 Family history of malignant neoplasm of breast; Z85.118 Personal history of other malignant neoplasm of bronchus and lung; Z86.711 Personal history of pulmonary embolism; Z87.891 Personal history of nicotine dependence; Z90.2 Acquired absence of lung [part of]; Z99.81 Dependence on supplemental oxygen
CPT/HCPCS: 36415; 36430; 49180; 71045; 71260; 74177; 77012; 80048; 80053; 81003; 83690; 83735; 85014; 85018; 85025; 86301; 86850; 86900; 86923; 88305; 88312; 88341; 88342; 93005; 94640; 96374; 96375; 99156; 99157; 99285; G0378; J1650; J1940; J2250; J2405; J2543; J3010; J7620; J7626; Q9967; C9113; J2270; J2310; J3475; J7030; J7512; P9016

== ENCOUNTER 2018-09-29 22:58 | Inpatient (IN) | payer MEDICARE ==
[~2018-09-29] VITALS: Ht 182.9 cm; Wt 130.0 kg
[~2018-09-29 22:58] MED LIST changes: +MORP15TA3 PO; +OXYC-432 PO
--- NOTE | 2018-09-29 23:16 | NUR ---
Pt to room, via wheelchair, with EDT. Pt changed into gown and placed on all monitors. NSR noted. Pt states that he was discharged this afternoon at appx 1630, and at appx 2030 pt began feeling SOB with minimal exertion, while wearing home O2. Pt states that he then checked his pulse ox at home and it showed that he was in the 60s. Pt states that this feels similar to other episodes of COPD exacerbation but worse because of new pain to his right flank r/t recent diagnosis of cancerous mass. Pt c/o increased leg swelling, L>R. 3+ pitting edema noted to b/l legs and abdomen. To LE minimal redness, no temperature change. Pt denies any CP/fevers.
--- NOTE | 2018-09-29 23:27 | NUR ---
Dr. Zamora at bedside to evaluate pt.
[2018-09-29] MEDS ORDERED: ALBUTEROL/IPRATROPIUM 2.5MG/0.5MG, 3 ML ONE (23:43)
[2018-09-30] MEDS ORDERED: ALBUTEROL/IPRATROPIUM 2.5MG/0.5MG, 3 ML NEB ONE
[2018-09-30] MEDS ORDERED: SODIUM CHLORIDE FLUSH 10ML SYR IVF ONE
--- NOTE | 2018-09-30 00:01 | NUR ---
RT at bedside.
[2018-09-30 00:14] LABS: BASOPHILS # (AUTO) 0.04 x10^3/uL (0-0.1); BASOPHILS % (AUTO) 0 % (0-1); EOSINOPHILS # (AUTO) 0.11 x10^3/uL (0-0.4); EOSINOPHILS % (AUTO) 1 % (1-7); LYMPHOCYTES # (AUTO) 0.65 x10^3/uL (1-3.4); LYMPHOCYTES % (AUTO) 7 % (22-44); MD NO; MEAN CORPUSCULAR HEMOGLOBIN 25.9 pg (27.5-34.5); MEAN CORPUSCULAR HGB CONC 30.2 g/dL (33.2-36.2); MEAN CORPUSCULAR VOLUME 85.6 fL (81-97); MEAN PLATELET VOLUME 7.9 fL (7.4-10.4); MONOCYTES # (AUTO) 0.56 x10^3/uL (0.2-0.8); MONOCYTES % (AUTO) 6 % (2-9); NEUTROPHILS # (AUTO) 8.54 x10^3/uL (1.8-6.8); NEUTROPHILS % (AUTO) 86 % (42-75); PLATELET COUNT 420 x10^3/uL (130-400); RED BLOOD COUNT 3.22 x10^6/uL (4.38-5.82)
[2018-09-30 00:19] LABS: INTERNATIONAL NORMALIZED RATIO 0.96 (0.93-1.1); PROTHROMBIN TIME 10.1 Seconds (9.6-11.5)
[2018-09-30 00:22] LABS: ALBUMIN 2.9 g/dL (3.4-5.0); ANION GAP 2 mmol/L (5-15); CALCIUM 8.2 mg/dL (8.5-10.1); CHLORIDE 96 mmol/L (98-107)
[2018-09-30 00:28] LABS: ALANINE AMINOTRANSFERASE 29 U/L (12-78); ALKALINE PHOSPHATASE 60 U/L (45-117); BILIRUBIN,TOTAL 0.5 mg/dL (0.2-1.0); CREATININE 0.65 mg/dL (0.7-1.3); TOTAL PROTEIN 6.2 g/dL (6.4-8.2); TROPONIN I < 0.015 ng/mL (0.000-0.045)
--- NOTE | 2018-09-30 00:50 | NUR ---
Pt ambulated to bathroom, no assistance required. +BM
[2018-09-30] MEDS ORDERED: FUROSEMIDE 40 MG/4 ML IV ONE (01:00)
[2018-09-30] MEDS ORDERED: FUROSEMIDE 40 MG/4 ML ONE (01:00)
--- NOTE | 2018-09-30 01:06 | NUR ---
Pt medicated per SEP and given a urinal.
--- NOTE | 2018-09-30 01:08 | NUR ---
Dr. Rushing at bedside to evaluate pt for admission.
[2018-09-30] MEDS ORDERED: CEFTRIAXONE PMX 2GM/50ML 50 ML IV SCH (01:30)
[2018-09-30] MEDS ORDERED: ONDANSETRON 2MG/ML, 2ML IVPush PRN (01:30)
[2018-09-30] MEDS ORDERED: MORPHINE SULFATE 4 MG/ML, 1ML IVPush ONE (01:30)
[2018-09-30] MEDS ORDERED: ENALAPRILAT 1.25 MG/ML, 2ML IVPush PRN (01:30)
[2018-09-30] MEDS ORDERED: ONDANSETRON ODT 4 MG PO PRN (01:30)
[2018-09-30] MEDS ORDERED: ENOXAPARIN 40 MG/0.4 ML SQ SCH (01:30)
--- NOTE | 2018-09-30 01:36 | NUR ---
Telephone SBAR report given to RNBarbie. Pt made aware of new room assignment. Pt to be medicated, per SEP, prior to transfer.
[2018-09-30] MEDS ORDERED: MORPHINE SULFATE 4 MG/ML, 1ML ONE (01:41)
--- NOTE | 2018-09-30 01:46 | NUR ---
Lab at bedside for BC x 2. Pt medicated per SEP.
[2018-09-30 02:13] LABS: BASOPHILS # (AUTO) 0.08 x10^3/uL (0-0.1); BASOPHILS % (AUTO) 1 % (0-1); EOSINOPHILS # (AUTO) 0.11 x10^3/uL (0-0.4); EOSINOPHILS % (AUTO) 1 % (1-7); LYMPHOCYTES # (AUTO) 0.84 x10^3/uL (1-3.4); LYMPHOCYTES % (AUTO) 9 % (22-44); MD NO; MEAN CORPUSCULAR HEMOGLOBIN 25.9 pg (27.5-34.5); MEAN CORPUSCULAR HGB CONC 30.3 g/dL (33.2-36.2); MEAN CORPUSCULAR VOLUME 85.5 fL (81-97); MONOCYTES # (AUTO) 0.46 x10^3/uL (0.2-0.8); MONOCYTES % (AUTO) 5 % (2-9); NEUTROPHILS # (AUTO) 7.45 x10^3/uL (1.8-6.8); NEUTROPHILS % (AUTO) 83 % (42-75); PLATELET COUNT 429 x10^3/uL (130-400); RED BLOOD COUNT 3.46 x10^6/uL (4.38-5.82); RED CELL DISTRIBUTION WIDTH 19.2 % (9.4-14.8)
[2018-09-30 02:15] VITALS: BP 155/87
[2018-09-30 02:17] LABS: ANION GAP 3 mmol/L (5-15); CALCIUM 8.7 mg/dL (8.5-10.1); CHLORIDE 94 mmol/L (98-107)
[2018-09-30 02:21] LABS: TROPONIN I < 0.015 ng/mL (0.000-0.045)
[2018-09-30 06:21] VITALS: BP 144/71
[2018-09-30] MEDS: BUDESONIDE 0.5 MG/2 ML INHA INH SCH ×2 (06:45→20:22)
[2018-09-30] MEDS: ALBUTEROL/IPRATROPIUM 2.5MG/0.5MG, 3 ML NPPB SCH ×4 (06:45→20:22)
[2018-09-30] MEDS: SENNA/DOCUSATE TABLET PO SCH (07:55)
[2018-09-30] MEDS: FUROSEMIDE 20 MG/2 ML IV SCH ×2 (07:55→16:57)
[2018-09-30] MEDS: VERAPAMIL ER 240MG TABLET.ER PO SCH (07:56)
[2018-09-30] MEDS: SUCRALFATE 1 GM TABLET PO SCH ×2 (07:56→21:06)
[2018-09-30] MEDS: OMEPRAZOLE 20 MG CAPSULE.DR PO SCH (07:56)
[2018-09-30] MEDS: HYDROcodone/APAP 5/325 TABLET PO PRN ×3 (08:20→23:28)
[2018-09-30] MEDS ORDERED: TEMPLATE NON-FORMULARY MED. (Tiotropium Bromide** (Spiriva**) 18 MCG) INH SCH (09:00)
[2018-09-30] MEDS ORDERED: TEMPLATE NON-FORMULARY MED. (Fluticasone/Salmeterol** (Advair 500-50 Diskus**) 1 PUFF) IH SCH (09:00)
[2018-09-30] MEDS ORDERED: ALBUTEROL/IPRATROPIUM 2.5MG/0.5MG, 3 ML NPPB SCH (09:00)
[2018-09-30] MEDS ORDERED: MORPHINE SULFATE 4 MG/ML, 1ML IVPush PRN ×2 (11:00→17:00)
[2018-09-30 14:10] VITALS: BP 139/69
[2018-09-30 14:22] VITALS: BP 128/75
[2018-09-30] MEDS: ENOXAPARIN 40 MG/0.4 ML SQ SCH (14:25)
[2018-09-30 18:41] VITALS: BP 156/78
[2018-09-30] MEDS: MONTELUKAST 10 MG TABLET PO SCH (21:06)
[2018-09-30] MEDS ORDERED: CEFTRIAXONE PMX 1GM/50ML 50 ML IV SCH (22:00)
[2018-10-01 00:59] VITALS: BP 110/64
[2018-10-01] MEDS: HYDROcodone/APAP 5/325 TABLET PO PRN (05:10)
[2018-10-01 05:28] VITALS: BP 137/73
[2018-10-01 05:47] LABS: BASOPHILS # (AUTO) 0.09 x10^3/uL (0-0.1); BASOPHILS % (AUTO) 1 % (0-1); EOSINOPHILS # (AUTO) 0.25 x10^3/uL (0-0.4); EOSINOPHILS % (AUTO) 3 % (1-7); LYMPHOCYTES # (AUTO) 1.22 x10^3/uL (1-3.4); LYMPHOCYTES % (AUTO) 15 % (22-44); MD NO; MEAN CORPUSCULAR HGB CONC 30.6 g/dL (33.2-36.2); MONOCYTES # (AUTO) 0.85 x10^3/uL (0.2-0.8); MONOCYTES % (AUTO) 10 % (2-9); NEUTROPHILS # (AUTO) 5.85 x10^3/uL (1.8-6.8); NEUTROPHILS % (AUTO) 71 % (42-75); PLATELET COUNT 394 x10^3/uL (130-400); RED BLOOD COUNT 3.22 x10^6/uL (4.38-5.82); RED CELL DISTRIBUTION WIDTH 19.9 % (9.4-14.8)
[2018-10-01 06:00] LABS: CHLORIDE 98 mmol/L (98-107)
[2018-10-01 06:05] LABS: ANION GAP 1 mmol/L (5-15); CALCIUM 8.2 mg/dL (8.5-10.1); CREATININE 0.62 mg/dL (0.7-1.3)
[2018-10-01 06:48] VITALS: BP 122/60
[2018-10-01] MEDS: FUROSEMIDE 20 MG/2 ML IV SCH (07:30)
[2018-10-01] MEDS: BUDESONIDE 0.5 MG/2 ML INHA INH SCH ×2 (08:00→18:25)
[2018-10-01] MEDS: ALBUTEROL/IPRATROPIUM 2.5MG/0.5MG, 3 ML NPPB SCH ×5 (08:00→22:05)
[2018-10-01] MEDS: SUCRALFATE 1 GM TABLET PO SCH ×2 (08:48→20:41)
[2018-10-01] MEDS: SENNA/DOCUSATE TABLET PO SCH (08:48)
[2018-10-01] MEDS: OMEPRAZOLE 20 MG CAPSULE.DR PO SCH (08:48)
[2018-10-01] MEDS: VERAPAMIL ER 240MG TABLET.ER PO SCH (08:48)
[2018-10-01] MEDS: OXYcodone/APAP 5/325MG TABLET PO PRN ×4 (09:23→21:29)
[2018-10-01 13:18] VITALS: BP 131/69
[2018-10-01] MEDS: ENOXAPARIN 40 MG/0.4 ML SQ SCH (13:18)
[2018-10-01] MEDS: FUROSEMIDE 40 MG TABLET PO SCH (17:29)
[2018-10-01 20:30] VITALS: BP 143/77
[2018-10-01] MEDS: MONTELUKAST 10 MG TABLET PO SCH (20:41)
[2018-10-01] MEDS ORDERED: CEFTRIAXONE PMX 1GM/50ML 50 ML IV SCH (22:00)
[2018-10-02 01:01] VITALS: BP 153/76
[2018-10-02] MEDS: OXYcodone/APAP 5/325MG TABLET PO PRN ×2 (01:02→05:40)
[2018-10-02 05:43] LABS: BASOPHILS # (AUTO) 0.06 x10^3/uL (0-0.1); BASOPHILS % (AUTO) 1 % (0-1); EOSINOPHILS # (AUTO) 0.31 x10^3/uL (0-0.4); EOSINOPHILS % (AUTO) 4 % (1-7); LYMPHOCYTES # (AUTO) 1.07 x10^3/uL (1-3.4); LYMPHOCYTES % (AUTO) 14 % (22-44); MD NO; MEAN CORPUSCULAR HEMOGLOBIN 25.8 pg (27.5-34.5); MEAN CORPUSCULAR HGB CONC 30.6 g/dL (33.2-36.2); MEAN CORPUSCULAR VOLUME 84.3 fL (81-97); MEAN PLATELET VOLUME 8.1 fL (7.4-10.4); MONOCYTES # (AUTO) 0.82 x10^3/uL (0.2-0.8); MONOCYTES % (AUTO) 11 % (2-9); NEUTROPHILS # (AUTO) 5.43 x10^3/uL (1.8-6.8); NEUTROPHILS % (AUTO) 71 % (42-75); PLATELET COUNT 419 x10^3/uL (130-400); RED CELL DISTRIBUTION WIDTH 19.5 % (9.4-14.8)
[2018-10-02 05:50] LABS: CHLORIDE 97 mmol/L (98-107)
[2018-10-02 05:58] LABS: ALANINE AMINOTRANSFERASE 35 U/L (12-78); ALBUMIN 2.7 g/dL (3.4-5.0); ALKALINE PHOSPHATASE 67 U/L (45-117); ANION GAP 2 mmol/L (5-15); BILIRUBIN,TOTAL 0.2 mg/dL (0.2-1.0); CALCIUM 8.5 mg/dL (8.5-10.1); CREATININE 0.62 mg/dL (0.7-1.3); TOTAL PROTEIN 5.7 g/dL (6.4-8.2)
[2018-10-02] MEDS ORDERED: ENOXAPARIN 30 MG/0.3 ML SQ SCH (06:00)
[2018-10-02] MEDS: ALBUTEROL/IPRATROPIUM 2.5MG/0.5MG, 3 ML NPPB SCH ×2 (06:00→10:02)
[2018-10-02 07:56] VITALS: BP 147/68
[2018-10-02] MEDS: FUROSEMIDE 40 MG TABLET PO SCH (08:22)
[2018-10-02] MEDS: CEPHALEXIN 500 MG CAPSULE PO SCH ×2 (08:22→08:27)
[2018-10-02] MEDS: OMEPRAZOLE 20 MG CAPSULE.DR PO SCH (08:23)
[2018-10-02] MEDS: SUCRALFATE 1 GM TABLET PO SCH (08:23)
[2018-10-02] MEDS: SENNA/DOCUSATE TABLET PO SCH (08:23)
[2018-10-02] MEDS: VERAPAMIL ER 240MG TABLET.ER PO SCH (08:24)
[2018-10-02] MEDS: BUDESONIDE 0.5 MG/2 ML INHA INH SCH (09:00)
[2018-10-02] MEDS ORDERED: FURO40TA6 PO (10:57)
[2018-10-02] MEDS ORDERED: CEPH-376 PO (10:57)
== END 2018-10-02 14:40 | disposition home or self-care (01) | DRG 603 ==
LOC: ED 09-30 00:12 → EDIP 09-30 00:54 → 4WST 09-30 02:08 → 3NW 10-01 05:25 → DCLOUNGE 10-02 14:31
PROVIDERS: ADMIT Family Medicine; ATTEND Family Medicine
DX: L03.116 Cellulitis of left lower limb (principal); K92.2 Gastrointestinal hemorrhage, unspecified; C49.A0 Gastrointestinal stromal tumor, unspecified site; I50.20 Unspecified systolic (congestive) heart failure; I11.0 Hypertensive heart disease with heart failure; D50.0 Iron deficiency anemia secondary to blood loss (chronic); I48.91 Unspecified atrial fibrillation; J44.9 Chronic obstructive pulmonary disease, unspecified; Z68.38 Body mass index [BMI] 38.0-38.9, adult; Z79.4 Long term (current) use of insulin; Z80.3 Family history of malignant neoplasm of breast; Z85.118 Personal history of other malignant neoplasm of bronchus and lung; Z86.711 Personal history of pulmonary embolism; Z87.891 Personal history of nicotine dependence; Z90.2 Acquired absence of lung [part of]; Z99.81 Dependence on supplemental oxygen; Z82.49 Family history of ischemic heart disease and other diseases of the circulatory system; Z79.899 Other long term (current) drug therapy; Z79.51 Long term (current) use of inhaled steroids
CPT/HCPCS: 36415; 71045; 80048; 80053; 83605; 83880; 84484; 85025; 85610; 85730; 87040; 93005; 93306; 94640; 96374; 96375; 99285; G0378; J0696; J1650; J1940; J7620; J7626

== ENCOUNTER 2018-10-05 20:03 | Inpatient (IN) | payer MEDICARE ==
[~2018-10-05] VITALS: Ht 180.3 cm; Wt 124.1 kg
[~2018-10-05 20:03] MED LIST changes: +CEPH-376 PO; +FURO40TA6 PO
--- NOTE | 2018-10-05 20:26 | NUR ---
PT PRESENTED WITH C/O OF RLQ ABD CRAMPS, ONSET THIS AFTERNOON, PT RECENTLY REC DIAGNOSIS OF CANCER, HAS A TUMOR R MID FLANK. PT NOTICED BLACK STOOL TODAY, STATED THAT HE TAKES IRON AT HOME. MONITORS APPLIED, SIDERAILS UP X2, CALL LIGHT WITHIN REACH, AWAITING ERP FOR EVAL AND ORDERS
[2018-10-05] MEDS ORDERED: IRON1TAB37 PO (20:31)
[2018-10-05] MEDS ORDERED: BACI28.43 PO (20:32)
[2018-10-05] MEDS ORDERED: HYDROmorphone 1 MG/ML, 1ML VIAL ONE ×3 (20:45→22:59)
--- NOTE | 2018-10-05 20:52 | NUR ---
PT MEDICATED PER SEP, PROVIDED PT WITH URINE CUP FOR SAMPLE, AWAITING LAB AND XRAY
[2018-10-05] MEDS ORDERED: HYDROmorphone 1 MG/ML, 1ML INJ IM ONE (21:00)
--- NOTE | 2018-10-05 21:29 | NUR ---
URINE SAMPLE TAKEN TO LAB, AWAITING LAB AND XRAY RESULTS
[2018-10-05 21:37] LABS: ALANINE AMINOTRANSFERASE 36 U/L (12-78); ALBUMIN 3.1 g/dL (3.4-5.0); ANION GAP 5 mmol/L (5-15); CALCIUM 8.8 mg/dL (8.5-10.1); CHLORIDE 99 mmol/L (98-107); CREATININE 0.54 mg/dL (0.7-1.3)
[2018-10-05 21:39] LABS: ALKALINE PHOSPHATASE 76 U/L (45-117); BASOPHILS # (AUTO) 0.05 x10^3/uL (0-0.1); BASOPHILS % (AUTO) 0 % (0-1); BILIRUBIN,TOTAL 0.2 mg/dL (0.2-1.0); EOSINOPHILS # (AUTO) 0.04 x10^3/uL (0-0.4); EOSINOPHILS % (AUTO) 0 % (1-7); LYMPHOCYTES # (AUTO) 0.75 x10^3/uL (1-3.4); LYMPHOCYTES % (AUTO) 5 % (22-44); MD NO; MEAN CORPUSCULAR HEMOGLOBIN 25.2 pg (27.5-34.5); MEAN CORPUSCULAR HGB CONC 30.8 g/dL (33.2-36.2); MEAN CORPUSCULAR VOLUME 81.8 fL (81-97); MEAN PLATELET VOLUME 7.9 fL (7.4-10.4); MONOCYTES # (AUTO) 0.89 x10^3/uL (0.2-0.8); MONOCYTES % (AUTO) 6 % (2-9); NEUTROPHILS # (AUTO) 13.71 x10^3/uL (1.8-6.8); NEUTROPHILS % (AUTO) 89 % (42-75); PLATELET COUNT 459 x10^3/uL (130-400); RED BLOOD COUNT 3.77 x10^6/uL (4.38-5.82); TOTAL PROTEIN 6.3 g/dL (6.4-8.2)
[2018-10-05 21:41] LABS: MICROSCOPIC NOT IND
[2018-10-05 21:45] LABS: CULTURE INDICATED? NO
[2018-10-05] MEDS ORDERED: SODIUM CHLORIDE 0.9% 1,000 ML IV ONE (22:04)
[2018-10-05] MEDS ORDERED: ONDANSETRON 2MG/ML, 2ML ONE (22:20)
[2018-10-05] MEDS: HYDROmorphone 2 MG/ML, 1ML IVPush PRN ×2 (22:26→23:00)
[2018-10-05] MEDS ORDERED: ONDANSETRON 2MG/ML, 2ML IVPush ONE (22:30)
[2018-10-05] MEDS ORDERED: SODIUM CHLORIDE FLUSH 10ML SYR IVF ONE (22:30)
--- NOTE | 2018-10-05 22:30 | NUR ---
IV SITE STARTED, IV FLUIDS INFUSING, PT MEDICATED PER MAR.
--- NOTE | 2018-10-05 22:40 | NUR ---
pt to ct
--- NOTE | 2018-10-05 23:02 | NUR ---
PT RESTING ON GURNEY, STATED HE HAS CONTINUED ABD PAIN, REQUESTING PAIN MEDICATION, MONITORS IN PLACE, CALL LIGHT WITHIN REACH. PT MEDICATED PER PRN PAIN MEDICATION ORDER, AWAITING CT RESULT
[2018-10-05] MEDS ORDERED: PIPERACILLIN/TAZO/PMX 3.375GM 50 ML IVPB ONE (23:30)
[2018-10-06] MEDS ORDERED: ALBUTEROL SULFATE 2.5 MG/3 ML NEB PRN
[2018-10-06] MEDS ORDERED: ENALAPRILAT 1.25 MG/ML, 2ML IVPush PRN
[2018-10-06] MEDS ORDERED: ONDANSETRON 2MG/ML, 2ML IVPush PRN
--- NOTE | 2018-10-06 | NUR ---
Note hemant in ED - 10/06/18 at 0001 by JAMEY TASK RN: PT SITTING UP IN JUN CLEANING NOTED. AWAKE/ALERT/FOLLOWING COMMANDS. FRIEND AT BEDSIDE. CHART UP FOR RECHECK. AWAITING DISPO
[2018-10-06] MEDS: morphine SULFATE 10 MG/ML, 1ML IVPush PRN ×6 (00:29→21:55)
[2018-10-06 00:46] VITALS: BP 131/56
[2018-10-06 01:07] LABS: ANION GAP 5 mmol/L (5-15); CALCIUM 8.3 mg/dL (8.5-10.1); CHLORIDE 100 mmol/L (98-107); CREATININE 0.57 mg/dL (0.7-1.3)
[2018-10-06] MEDS ORDERED: BUPIVACAINE/PF-EPI 0.5% 1:200K ONE (02:04)
[2018-10-06] MEDS: SODIUM CHLORIDE 0.9% 1,000 ML IV SCH ×2 (02:22→06:35)
[2018-10-06] MEDS ORDERED: OMNIPAQUE 350 MG/ML, 100ML BOTTLE ONE (04:02)
[2018-10-06 05:05] LABS: BASOPHILS # (AUTO) 0.05 x10^3/uL (0-0.1); BASOPHILS % (AUTO) 0 % (0-1); EOSINOPHILS # (AUTO) 0.04 x10^3/uL (0-0.4); EOSINOPHILS % (AUTO) 0 % (1-7); LYMPHOCYTES # (AUTO) 0.97 x10^3/uL (1-3.4); LYMPHOCYTES % (AUTO) 8 % (22-44); MD NO; MEAN CORPUSCULAR HEMOGLOBIN 25.3 pg (27.5-34.5); MEAN CORPUSCULAR HGB CONC 30.6 g/dL (33.2-36.2); MEAN CORPUSCULAR VOLUME 82.7 fL (81-97); MEAN PLATELET VOLUME 7.8 fL (7.4-10.4); MONOCYTES # (AUTO) 1.37 x10^3/uL (0.2-0.8); MONOCYTES % (AUTO) 11 % (2-9); NEUTROPHILS # (AUTO) 10.54 x10^3/uL (1.8-6.8); NEUTROPHILS % (AUTO) 81 % (42-75); PLATELET COUNT 405 x10^3/uL (130-400); RED BLOOD COUNT 3.53 x10^6/uL (4.38-5.82); RED CELL DISTRIBUTION WIDTH 19.2 % (9.4-14.8)
[2018-10-06] MEDS ORDERED: BUPIVACAINE/PF-EPI 0.5% 1:200K INFIL ONE (05:07)
[2018-10-06] MEDS ORDERED: MIDAZOLAM 1 MG/ML, 2ML ONE (05:43)
[2018-10-06] MEDS ORDERED: FENTANYL PF 250 MCG/5ML ONE (05:44)
[2018-10-06] MEDS ORDERED: SUGAMMADEX 200 MG/2 ML IVPush ONE (05:46)
[2018-10-06] MEDS ORDERED: PROPOFOL 10 MG/ML, 20ML ONE (05:48)
[2018-10-06] MEDS ORDERED: ROCURONIUM 10 MG/ML,10ML ONE (05:48)
[2018-10-06] MEDS: OMEPRAZOLE 20 MG CAPSULE.DR PO SCH (06:00)
[2018-10-06] MEDS ORDERED: FENTANYL PF 100 MCG/2ML IV PRN (06:00)
[2018-10-06] MEDS: PIPERACILLIN/TAZO/PMX 3.375GM 50 ML IV SCH ×2 (06:00→13:27)
[2018-10-06] MEDS ORDERED: hydrALAzine 20 MG/ML, 1ML IV PRN (06:00)
[2018-10-06] MEDS ORDERED: PROMETHAZINE 25 MG/ML, 1ML IV PRN (06:00)
[2018-10-06] MEDS ORDERED: ACETAMINOPHEN 325 MG TABLET PO PRN (06:00)
[2018-10-06] MEDS ORDERED: HYDROmorphone 2 MG/ML, 1ML IVPush PRN ×2 (06:00→09:30)
[2018-10-06] MEDS ORDERED: ALBUTEROL/IPRATROPIUM 2.5MG/0.5MG, 3 ML NPPB PRN (06:00)
[2018-10-06] MEDS ORDERED: HALOPERIDOL 5 MG/ML IV PRN (06:00)
[2018-10-06] MEDS ORDERED: OXYcodone 5 MG/5 ML ORAL.SOL UDC PO PRN (06:00)
[2018-10-06] MEDS ORDERED: ALBUTEROL/IPRATROPIUM 2.5MG/0.5MG, 3 ML ONE (06:49)
[2018-10-06] MEDS ORDERED: OXYcodone 5 MG/5 ML ORAL.SOL UDC ONE (07:01)
[2018-10-06] MEDS ORDERED: FENTANYL PF 100 MCG/2ML ONE (07:19)
[2018-10-06] MEDS ORDERED: HYDROmorphone 1 MG/ML, 1ML VIAL ONE (07:19)
[2018-10-06] MEDS ORDERED: MEPERIDINE/PF 25MG/ML,1ML ONE (07:25)
[2018-10-06] MEDS: MEPERIDINE/PF 25MG/0.5ML IVPush PRN ×2 (07:29→07:30)
[2018-10-06] MEDS: FUROSEMIDE 40 MG TABLET PO SCH ×2 (08:36→16:14)
[2018-10-06] MEDS: VERAPAMIL ER 240MG TABLET.ER PO SCH (08:53)
[2018-10-06] MEDS: SUCRALFATE 1 GM TABLET PO SCH ×2 (08:53→21:54)
[2018-10-06] MEDS: BUDESONIDE 0.5 MG/2 ML INHA NPPB SCH ×2 (09:00→21:00)
[2018-10-06] MEDS ORDERED: morphine SULFATE 10 MG/ML, 1ML IV PRN (09:30)
[2018-10-06] MEDS ORDERED: POTASSIUM CHLORIDE 20 MEQ in LACTATED RINGERS 1,000 ML IV SCH (09:30)
[2018-10-06] MEDS ORDERED: ONDANSETRON 2MG/ML, 2ML IV PRN (09:30)
[2018-10-06] MEDS ORDERED: HYDROcodone/APAP 5/325 TABLET PO PRN ×2 (09:30)
[2018-10-06] MEDS: OXYcodone/APAP 5/325MG TABLET PO PRN ×4 (11:06→23:32)
[2018-10-06] MEDS: ALBUTEROL SULFATE 2.5 MG/3 ML NPPB SCH ×3 (14:09→21:00)
[2018-10-06 15:00] VITALS: BP 122/70
[2018-10-06] MEDS: CEFOTETAN PMX 1GM/50ML 50 ML IVPB SCH (18:40)
[2018-10-06 19:04] VITALS: BP 121/76
[2018-10-06] MEDS: POTASSIUM CHLORIDE 20 MEQ in LACTATED RINGERS 1,000 ML IV SCH (19:42)
[2018-10-06] MEDS: MONTELUKAST 10 MG TABLET PO SCH (21:55)
[2018-10-07] MEDS: morphine SULFATE 10 MG/ML, 1ML IVPush PRN ×2 (00:53→04:22)
[2018-10-07 01:27] VITALS: BP 105/93
[2018-10-07] MEDS: OXYcodone/APAP 5/325MG TABLET PO PRN ×5 (03:34→22:15)
[2018-10-07 05:38] LABS: BASOPHILS # (AUTO) 0.06 x10^3/uL (0-0.1); BASOPHILS % (AUTO) 1 % (0-1); EOSINOPHILS % (AUTO) 5 % (1-7); LYMPHOCYTES # (AUTO) 0.67 x10^3/uL (1-3.4); LYMPHOCYTES % (AUTO) 6 % (22-44); MD NO; MEAN CORPUSCULAR HEMOGLOBIN 25.6 pg (27.5-34.5); MEAN CORPUSCULAR HGB CONC 30.7 g/dL (33.2-36.2); MEAN CORPUSCULAR VOLUME 83.4 fL (81-97); MEAN PLATELET VOLUME 8.4 fL (7.4-10.4); MONOCYTES # (AUTO) 1.01 x10^3/uL (0.2-0.8); MONOCYTES % (AUTO) 9 % (2-9); NEUTROPHILS # (AUTO) 8.87 x10^3/uL (1.8-6.8); NEUTROPHILS % (AUTO) 80 % (42-75); PLATELET COUNT 331 x10^3/uL (130-400); RED BLOOD COUNT 3.32 x10^6/uL (4.38-5.82); RED CELL DISTRIBUTION WIDTH 19.1 % (9.4-14.8)
[2018-10-07 05:47] LABS: ANION GAP 3 mmol/L (5-15); CALCIUM 8.3 mg/dL (8.5-10.1); CHLORIDE 97 mmol/L (98-107); CREATININE 0.58 mg/dL (0.7-1.3)
[2018-10-07] MEDS: ENOXAPARIN 40 MG/0.4 ML SQ SCH (05:56)
[2018-10-07] MEDS: OMEPRAZOLE 20 MG CAPSULE.DR PO SCH (05:56)
[2018-10-07] MEDS: CEFOTETAN PMX 1GM/50ML 50 ML IVPB SCH (06:27)
[2018-10-07 07:19] VITALS: BP 115/73
[2018-10-07] MEDS: TEMPLATE NON-FORMULARY MED. (Tiotropium Bromide** (Spiriva**) 18 MCG) INH SCH (07:58)
[2018-10-07] MEDS: SUCRALFATE 1 GM TABLET PO SCH ×2 (07:58→20:36)
[2018-10-07] MEDS: FUROSEMIDE 40 MG TABLET PO SCH ×2 (07:58→16:31)
[2018-10-07] MEDS: VERAPAMIL ER 240MG TABLET.ER PO SCH (07:58)
[2018-10-07] MEDS: BUDESONIDE 0.5 MG/2 ML INHA NPPB SCH ×2 (08:35→21:53)
[2018-10-07] MEDS: ALBUTEROL SULFATE 2.5 MG/3 ML NPPB SCH ×4 (08:35→21:53)
[2018-10-07] MEDS ORDERED: morphine SULFATE 10 MG/ML, 1ML IVPush PRN (09:00)
[2018-10-07 12:44] VITALS: BP 103/62
[2018-10-07] MEDS: POTASSIUM CHLORIDE 20 MEQ in LACTATED RINGERS 1,000 ML IV SCH (15:12)
[2018-10-07] MEDS: MONTELUKAST 10 MG TABLET PO SCH (20:36)
[2018-10-07 20:46] VITALS: BP 134/57
[2018-10-08 03:05] VITALS: BP 131/74
[2018-10-08] MEDS: OXYcodone/APAP 5/325MG TABLET PO PRN ×4 (03:24→20:39)
[2018-10-08] MEDS: ENOXAPARIN 40 MG/0.4 ML SQ SCH (04:58)
[2018-10-08] MEDS: OMEPRAZOLE 20 MG CAPSULE.DR PO SCH (04:58)
[2018-10-08 05:05] LABS: BASOPHILS # (AUTO) 0.04 x10^3/uL (0-0.1); BASOPHILS % (AUTO) 1 % (0-1); EOSINOPHILS % (AUTO) 1 % (1-7); LYMPHOCYTES % (AUTO) 12 % (22-44); MD NO; MEAN CORPUSCULAR HEMOGLOBIN 25.2 pg (27.5-34.5); MEAN CORPUSCULAR HGB CONC 30.5 g/dL (33.2-36.2); MEAN CORPUSCULAR VOLUME 82.7 fL (81-97); MEAN PLATELET VOLUME 8.4 fL (7.4-10.4); MONOCYTES # (AUTO) 0.74 x10^3/uL (0.2-0.8); MONOCYTES % (AUTO) 10 % (2-9); NEUTROPHILS # (AUTO) 5.66 x10^3/uL (1.8-6.8); NEUTROPHILS % (AUTO) 76 % (42-75); PLATELET COUNT 306 x10^3/uL (130-400); RED BLOOD COUNT 3.26 x10^6/uL (4.38-5.82); RED CELL DISTRIBUTION WIDTH 18.7 % (9.4-14.8)
[2018-10-08 05:11] LABS: ANION GAP 0 mmol/L (5-15); CALCIUM 8.1 mg/dL (8.5-10.1); CHLORIDE 98 mmol/L (98-107); CREATININE 0.59 mg/dL (0.7-1.3)
[2018-10-08 06:55] VITALS: BP 119/72
[2018-10-08] MEDS: ALBUTEROL SULFATE 2.5 MG/3 ML NPPB SCH ×4 (07:00→21:20)
[2018-10-08] MEDS: BUDESONIDE 0.5 MG/2 ML INHA NPPB SCH ×2 (07:00→21:21)
[2018-10-08] MEDS: FUROSEMIDE 40 MG TABLET PO SCH ×2 (07:59→16:14)
[2018-10-08] MEDS: VERAPAMIL ER 240MG TABLET.ER PO SCH (07:59)
[2018-10-08] MEDS: SUCRALFATE 1 GM TABLET PO SCH ×2 (07:59→20:39)
[2018-10-08 08:01] VITALS: BP 134/66
[2018-10-08] MEDS: TEMPLATE NON-FORMULARY MED. (Tiotropium Bromide** (Spiriva**) 18 MCG) INH SCH (08:04)
[2018-10-08] MEDS: POTASSIUM CHLORIDE 20 MEQ in LACTATED RINGERS 1,000 ML IV SCH (12:24)
[2018-10-08 12:45] VITALS: BP 127/69
[2018-10-08] MEDS: DOCUSATE 100 MG CAPSULE PO PRN (17:52)
[2018-10-08 18:50] VITALS: BP 145/75
[2018-10-08] MEDS: MONTELUKAST 10 MG TABLET PO SCH (20:39)
[2018-10-09] MEDS: OXYcodone/APAP 5/325MG TABLET PO PRN ×5 (00:35→22:46)
[2018-10-09 01:00] VITALS: BP 133/77
[2018-10-09] MEDS: OMEPRAZOLE 20 MG CAPSULE.DR PO SCH (05:35)
[2018-10-09] MEDS: ENOXAPARIN 40 MG/0.4 ML SQ SCH (05:35)
[2018-10-09 06:53] VITALS: BP 117/74
[2018-10-09] MEDS: BUDESONIDE 0.5 MG/2 ML INHA NPPB SCH ×2 (07:00→18:57)
[2018-10-09] MEDS: ALBUTEROL SULFATE 2.5 MG/3 ML NPPB SCH ×4 (07:00→18:57)
[2018-10-09] MEDS: FUROSEMIDE 40 MG TABLET PO SCH ×2 (08:34→17:31)
[2018-10-09] MEDS: SUCRALFATE 1 GM TABLET PO SCH ×2 (08:34→20:48)
[2018-10-09] MEDS: POTASSIUM CHLORIDE 20 MEQ in LACTATED RINGERS 1,000 ML IV SCH (08:35)
[2018-10-09] MEDS: VERAPAMIL ER 240MG TABLET.ER PO SCH (08:35)
[2018-10-09 08:37] VITALS: BP 125/62
[2018-10-09] MEDS: TEMPLATE NON-FORMULARY MED. (Tiotropium Bromide** (Spiriva**) 18 MCG) INH SCH (09:00)
[2018-10-09] MEDS: DOCUSATE 100 MG CAPSULE PO PRN ×2 (09:21→20:49)
[2018-10-09 13:07] VITALS: BP 120/61
[2018-10-09 20:00] VITALS: BP 156/73
[2018-10-09] MEDS: MONTELUKAST 10 MG TABLET PO SCH (20:48)
[2018-10-10 03:00] VITALS: BP 117/62
[2018-10-10] MEDS: OXYcodone/APAP 5/325MG TABLET PO PRN ×3 (03:01→08:41)
[2018-10-10] MEDS: POTASSIUM CHLORIDE 20 MEQ in LACTATED RINGERS 1,000 ML IV SCH (03:48)
[2018-10-10] MEDS: ENOXAPARIN 40 MG/0.4 ML SQ SCH (06:40)
[2018-10-10] MEDS: OMEPRAZOLE 20 MG CAPSULE.DR PO SCH (06:40)
[2018-10-10] MEDS: BUDESONIDE 0.5 MG/2 ML INHA NPPB SCH (06:50)
[2018-10-10] MEDS: ALBUTEROL SULFATE 2.5 MG/3 ML NPPB SCH ×3 (06:50→14:26)
[2018-10-10 07:13] VITALS: BP 123/77
[2018-10-10] MEDS: SUCRALFATE 1 GM TABLET PO SCH (08:41)
[2018-10-10] MEDS: FUROSEMIDE 40 MG TABLET PO SCH (08:41)
[2018-10-10] MEDS: VERAPAMIL ER 240MG TABLET.ER PO SCH (08:41)
[2018-10-10] MEDS: TEMPLATE NON-FORMULARY MED. (Tiotropium Bromide** (Spiriva**) 18 MCG) INH SCH (08:44)
[2018-10-10 13:12] VITALS: BP 114/72
[2018-10-10] MEDS ORDERED: HYDR-3240 PO (15:04)
== END 2018-10-10 15:20 | disposition home or self-care (01) | DRG 853 ==
LOC: ED 22:28 → EDIP 23:22 → 4NOR 10-06 00:04 → DCLOUNGE 10-10 14:58
PROVIDERS: ADMIT Family Medicine; ATTEND Family Medicine
PROC: 0DTJ4ZZ Resection of Appendix, Percutaneous Endoscopic Approach (ICD-10-PCS; principal; 2018-10-06 04:00)
DX: A41.9 Sepsis, unspecified organism (principal); K26.4 Chronic or unspecified duodenal ulcer with hemorrhage; K35.30 Acute appendicitis with localized peritonitis, without perforation or gangrene; C25.9 Malignant neoplasm of pancreas, unspecified; C49.A0 Gastrointestinal stromal tumor, unspecified site; J44.9 Chronic obstructive pulmonary disease, unspecified; E66.01 Morbid (severe) obesity due to excess calories; D64.9 Anemia, unspecified; K21.9 Gastro-esophageal reflux disease without esophagitis; I50.9 Heart failure, unspecified; I11.0 Hypertensive heart disease with heart failure; Z90.2 Acquired absence of lung [part of]; D50.0 Iron deficiency anemia secondary to blood loss (chronic); I48.91 Unspecified atrial fibrillation; Z99.81 Dependence on supplemental oxygen; Z92.21 Personal history of antineoplastic chemotherapy; Z86.711 Personal history of pulmonary embolism; Z85.118 Personal history of other malignant neoplasm of bronchus and lung; Z85.07 Personal history of malignant neoplasm of pancreas; Z79.4 Long term (current) use of insulin; Z87.891 Personal history of nicotine dependence; Z87.11 Personal history of peptic ulcer disease; Z80.3 Family history of malignant neoplasm of breast; Z82.49 Family history of ischemic heart disease and other diseases of the circulatory system
CPT/HCPCS: 36415; 71045; 74021; 74177; 80048; 80053; 81003; 83690; 85025; 88304; 93005; 94640; 96374; 96375; G0378; J1170; J1650; J2175; J2250; J2405; J2543; J2704; J3010; J3480; J7613; J7626; Q9967; J2270; J3490; J7030; J7120

== ENCOUNTER 2018-11-26 06:04 | Observation (INO) | payer MEDICARE ==
[~2018-11-26] VITALS: Ht 180.3 cm; Wt 121.3 kg
[~2018-11-26 06:04] MED LIST changes: +BACI28.43 PO; +CYCL-259 PO; +IMAT400T PO; +IRON1TAB37 PO
[2018-11-26] MEDS ORDERED: ONDANSETRON 2MG/ML, 2ML ONE (06:23)
[2018-11-26] MEDS ORDERED: MORPHINE SULFATE 4 MG/ML, 1ML ONE ×2 (06:24→08:05)
[2018-11-26] MEDS ORDERED: ASPIRIN 81 MG TABLET CHEW ONE (06:24)
[2018-11-26] MEDS ORDERED: ONDANSETRON 2MG/ML, 2ML IVPush ONE (06:30)
[2018-11-26] MEDS ORDERED: SODIUM CHLORIDE FLUSH 10ML SYR IVF ONE (06:30)
[2018-11-26] MEDS ORDERED: ASPIRIN 81 MG TABLET CHEW PO ONE (06:30)
[2018-11-26 06:45] LABS: BASOPHILS # (AUTO) 0.09 x10^3/uL (0-0.1); BASOPHILS % (AUTO) 1 % (0-1); EOSINOPHILS # (AUTO) 0.19 x10^3/uL (0-0.4); EOSINOPHILS % (AUTO) 1 % (1-7); LYMPHOCYTES # (AUTO) 0.93 x10^3/uL (1-3.4); LYMPHOCYTES % (AUTO) 6 % (22-44); MD NO; MEAN CORPUSCULAR HEMOGLOBIN 24.8 pg (27.5-34.5); MEAN CORPUSCULAR HGB CONC 30.9 g/dL (33.2-36.2); MEAN CORPUSCULAR VOLUME 80.4 fL (81-97); MEAN PLATELET VOLUME 8.1 fL (7.4-10.4); MONOCYTES # (AUTO) 0.56 x10^3/uL (0.2-0.8); MONOCYTES % (AUTO) 4 % (2-9); NEUTROPHILS # (AUTO) 14.22 x10^3/uL (1.8-6.8); NEUTROPHILS % (AUTO) 89 % (42-75); PLATELET COUNT 294 x10^3/uL (130-400); RED CELL DISTRIBUTION WIDTH 20.4 % (9.4-14.8)
[2018-11-26 06:57] LABS: ALBUMIN 3.6 g/dL (3.4-5.0); ANION GAP 6 mmol/L (5-15); CALCIUM 8.8 mg/dL (8.5-10.1); CHLORIDE 101 mmol/L (98-107)
--- NOTE | 2018-11-26 06:57 | NUR ---
REPORT RECEIVED CARE ASSUMED.
[2018-11-26 07:00] LABS: TROPONIN I < 0.015 ng/mL (0.000-0.045)
[2018-11-26] MEDS: MORPHINE SULFATE 4 MG/ML, 1ML IVPush PRN ×2 (07:19→08:07)
--- NOTE | 2018-11-26 07:21 | NUR ---
FIRST CONTACT WITH PT. IV STARTED IN LAC, ZOFRAN AND MORPHINE ADMINISTERED. PRIOR TO LYE PEEL OPERATOR, PT REPORTS PAIN AT 8/10. WHILE I WAS AT BEDSIDE, HE HAD A SHARP PAIN WHICH HE RATED A 12. HE REPORTS THAT HE "GETS THESE BRIEF SHARP PAINS ABOUT 15 MINUTES, THIS HAS BEEN HAPPENING SINCE ABOUT [address] CAME TO TAKE PT.
--- NOTE | 2018-11-26 08:31 | NUR ---
paged unr for dr basurto
--- NOTE | 2018-11-26 08:48 | NUR ---
PT REPORTS THAT HIS PAIN IS STILL 10/10. ERIKA AT BEDSIDE, HE IS DISCUSSING PLAN OF CARE WITH PT. ERIKA TELLS PT THAT HE WILL BE ADMITTED TO THE HOSPITAL. I REQUEST ADDITIONAL PAIN MEDICATION FROM ERIKA, HE STATES THAT TORADOL WILL BE ADDED, AND ALSO SOME MORE MORPHINE. I ASK THE PT IF HE HAS ANY NEEDS OR QUESTIONS, HE DENIES. ERIKA SAYS HE WILL PUT IN THE ORDERS. NO ACUTE SIGNS OF DISTRESS.
[2018-11-26] MEDS ORDERED: ENALAPRILAT 1.25 MG/ML, 2ML IVPush PRN (09:00)
[2018-11-26] MEDS ORDERED: PANTOPROZOLE 40MG TABLET PO SCH (09:00)
[2018-11-26] MEDS ORDERED: ONDANSETRON ODT 4 MG PO PRN (09:00)
[2018-11-26] MEDS ORDERED: ACETAMINOPHEN 325 MG TABLET PO PRN (09:00)
[2018-11-26] MEDS ORDERED: morphine SULFATE 10 MG/ML, 1ML IVPush PRN (09:00)
[2018-11-26] MEDS ORDERED: KETOROLAC 30 MG/1 ML IVPush ONE (09:00)
[2018-11-26] MEDS ORDERED: DOCUSATE 100 MG CAPSULE PO PRN (09:00)
--- NOTE | 2018-11-26 09:02 | NUR ---
REPORT GIVEN TO IVY AT 0900. PT IS GOING TO RM 515.
[2018-11-26] MEDS ORDERED: KETOROLAC 30 MG/1 ML ONE (09:10)
--- NOTE | 2018-11-26 09:15 | NUR ---
PT MEDICATED WITH TORADOL PER ORDER. TRANSPORT HERE TO TAKE PT TO HIS RM. PT IN STABLE CONDITION. DENIES ANY FURTHER NEEDS FROM US.
[2018-11-26] MEDS ORDERED: MAALOX/HYOSCYAMINE/LIDOCAINE 45 ML BTL PO ONE (09:30)
[2018-11-26 09:31] VITALS: BP 151/91
[2018-11-26] MEDS ORDERED: PLEASE ENTER HEIGHT AND WEIGHT MC SCH (10:00)
[2018-11-26] MEDS: HEPARIN 5,000 UNITS/ML, 1ML SQ SCH ×2 (10:20→20:02)
[2018-11-26] MEDS ORDERED: ALBUTEROL SULFATE 2.5 MG/3 ML HHN PRN (10:30)
[2018-11-26] MEDS ORDERED: TEMPLATE NON-FORMULARY MED. (Tiotropium Bromide** (Spiriva**) 18 MCG) INH SCH (10:30)
[2018-11-26] MEDS ORDERED: VERAPAMIL HCL 240 MG PO SCH (10:30)
[2018-11-26 10:33] VITALS: BP 136/83
[2018-11-26] MEDS ORDERED: ALBUTEROL SULFATE 2.5 MG/3 ML HHN SCH (11:00)
[2018-11-26] MEDS ORDERED: BUDESONIDE 0.5 MG/2 ML INHA HHN SCH (11:00)
[2018-11-26] MEDS ORDERED: VERAPAMIL ER 120MG TABLET.ER PO SCH (11:05)
[2018-11-26] MEDS ORDERED: IPRATROPIUM 0.5 MG/2.5 ML INHA HHN SCH (11:30)
[2018-11-26 13:09] VITALS: BP 157/78
[2018-11-26 13:24] LABS: TROPONIN I < 0.015 ng/mL (0.000-0.045)
[2018-11-26] MEDS ORDERED: NITROGLYCERIN 0.4 MG BOTTLE (25 TABS) SL PRN (13:30)
[2018-11-26] MEDS ORDERED: NITROGLYCERIN 0.4 MG/SPRAY SL PRN (13:30)
[2018-11-26] MEDS ORDERED: FUROSEMIDE 40 MG TABLET ONE (14:11)
[2018-11-26] MEDS: FUROSEMIDE 40 MG TABLET PO SCH (14:14)
[2018-11-26] MEDS: ALBUTEROL/IPRATROPIUM 2.5MG/0.5MG, 3 ML NPPB SCH (19:08)
[2018-11-26] MEDS: BUDESONIDE 0.5 MG/2 ML INHA HHN SCH (19:08)
[2018-11-26 19:11] VITALS: BP 158/89
[2018-11-26] MEDS ORDERED: IMATINIB 400 MG TABLET PO SCH (21:00)
[2018-11-26] MEDS ORDERED: IMATINIB 100 MG TABLET PO SCH (21:00)
[2018-11-26] MEDS ORDERED: MONTELUKAST 10 MG TABLET PO SCH (21:00)
[2018-11-26] MEDS: CYCLOBENZAPRINE 10 MG TABLET PO PRN (22:24)
[2018-11-26] MEDS ORDERED: ZOLPIDEM 5MG TABLET PO SCH (22:30)
[2018-11-27 01:13] VITALS: BP 146/81
[2018-11-27] MEDS: ALBUTEROL/IPRATROPIUM 2.5MG/0.5MG, 3 ML NPPB SCH ×2 (01:35→07:33)
[2018-11-27] MEDS: HEPARIN 5,000 UNITS/ML, 1ML SQ SCH (04:44)
[2018-11-27 05:25] LABS: BASOPHILS # (AUTO) 0.03 x10^3/uL (0-0.1); BASOPHILS % (AUTO) 0 % (0-1); EOSINOPHILS # (AUTO) 0.11 x10^3/uL (0-0.4); EOSINOPHILS % (AUTO) 2 % (1-7); LYMPHOCYTES # (AUTO) 1.12 x10^3/uL (1-3.4); LYMPHOCYTES % (AUTO) 16 % (22-44); MD NO; MEAN CORPUSCULAR HEMOGLOBIN 24.9 pg (27.5-34.5); MEAN CORPUSCULAR VOLUME 80.5 fL (81-97); MEAN PLATELET VOLUME 8.2 fL (7.4-10.4); MONOCYTES # (AUTO) 0.74 x10^3/uL (0.2-0.8); MONOCYTES % (AUTO) 11 % (2-9); NEUTROPHILS # (AUTO) 4.91 x10^3/uL (1.8-6.8); NEUTROPHILS % (AUTO) 71 % (42-75); PLATELET COUNT 236 x10^3/uL (130-400); RED BLOOD COUNT 4.17 x10^6/uL (4.38-5.82)
[2018-11-27 05:36] LABS: ANION GAP 2 mmol/L (5-15); CALCIUM 8.1 mg/dL (8.5-10.1); CHLORIDE 98 mmol/L (98-107)
[2018-11-27 05:38] LABS: CREATININE 0.61 mg/dL (0.7-1.3)
[2018-11-27 06:46] VITALS: BP 136/72
[2018-11-27] MEDS: BUDESONIDE 0.5 MG/2 ML INHA HHN SCH (07:33)
[2018-11-27] MEDS: FUROSEMIDE 40 MG TABLET PO SCH (08:20)
[2018-11-27] MEDS: CYCLOBENZAPRINE 10 MG TABLET PO PRN (08:20)
[2018-11-27] MEDS ORDERED: TRAM50TA2 PO (08:46)
[2018-11-27] MEDS ORDERED: FERROUS SULFATE 325 MG TABLET PO SCH (09:00)
[2018-11-27] MEDS ORDERED: MULTIVITAMIN 1 TABLET PO SCH (09:00)
[2018-11-27] MEDS ORDERED: OMEPRAZOLE 20 MG CAPSULE.DR PO SCH (09:00)
== END 2018-11-27 11:05 | disposition home or self-care (01) ==
LOC: ED 06:22 → EDIP 09:03 → OBSVTOIN 09:07 → INTOOBSV 09:07 → 5SO 09:20
PROVIDERS: ADMIT Family Medicine; ATTEND Family Medicine
DX: R07.89 Other chest pain (principal); J44.9 Chronic obstructive pulmonary disease, unspecified; R09.02 Hypoxemia; I11.0 Hypertensive heart disease with heart failure; I50.20 Unspecified systolic (congestive) heart failure; D72.829 Elevated white blood cell count, unspecified; D53.9 Nutritional anemia, unspecified; E78.5 Hyperlipidemia, unspecified; Z85.118 Personal history of other malignant neoplasm of bronchus and lung; Z87.19 Personal history of other diseases of the digestive system; Z86.79 Personal history of other diseases of the circulatory system; Z87.891 Personal history of nicotine dependence; Z79.899 Other long term (current) drug therapy; R60.0 Localized edema
CPT/HCPCS: 36415; 71046; 80048; 82040; 83880; 84484; 85025; 93005; 94640; 96372; 96374; 96375; 96376; 99284; G0378; J1644; J1885; J2270; J2405; J7613; J7620; J7626; J7644; 99285

== ENCOUNTER 2018-12-30 10:56 | Inpatient (IN) | payer MEDICARE ==
[2018-12-29] MEDS: ALBUTEROL SULFATE 2.5 MG/3 ML NPPB SCH (18:09)
[2018-12-29] MEDS: BUDESONIDE 0.5 MG/2 ML INHA NPPB SCH (19:05)
[~2018-12-30] VITALS: Ht 180.3 cm; Wt 126.2 kg
[~2018-12-30 10:56] MED LIST changes: -FLUT16SP NAS; +FLUT16SP24 NAS; +TRAM50TA2 PO
--- NOTE | 2018-12-30 11:30 | NUR ---
FROM LOBBY TO ROOM AT THIS TIME
[2018-12-30] MEDS ORDERED: ONDANSETRON 2MG/ML, 2ML IVPush ONE ×2 (12:00→16:00)
[2018-12-30] MEDS ORDERED: SODIUM CHLORIDE FLUSH 10ML SYR IVF ONE (12:00)
--- NOTE | 2018-12-30 12:04 | NUR ---
pt upright on gurney awake & calm, responds approp to staff, NAD, comfort measures provided, call light within reach.
[2018-12-30] MEDS ORDERED: ONDANSETRON 2MG/ML, 2ML ONE ×2 (12:10→15:31)
[2018-12-30] MEDS ORDERED: MORPHINE SULFATE 4 MG/ML, 1ML ONE ×3 (12:11→15:26)
[2018-12-30 12:27] LABS: MICROSCOPIC NOT IND
[2018-12-30 12:33] LABS: MEAN CORPUSCULAR HEMOGLOBIN 25.3 pg (27.5-34.5); MEAN CORPUSCULAR HGB CONC 30.8 g/dL (33.2-36.2); MEAN CORPUSCULAR VOLUME 82.2 fL (81-97); MEAN PLATELET VOLUME 7.7 fL (7.4-10.4); PLATELET COUNT 303 x10^3/uL (130-400); RED BLOOD COUNT 4.71 x10^6/uL (4.38-5.82); RED CELL DISTRIBUTION WIDTH 22.6 % (9.4-14.8)
[2018-12-30 12:39] LABS: CULTURE INDICATED? NO
[2018-12-30 12:45] LABS: ALBUMIN 3.3 g/dL (3.4-5.0); ANION GAP 5 mmol/L (5-15); CALCIUM 8.6 mg/dL (8.5-10.1); CHLORIDE 99 mmol/L (98-107)
[2018-12-30 12:49] LABS: ALANINE AMINOTRANSFERASE 16 U/L (12-78); ALKALINE PHOSPHATASE 115 U/L (45-117); BILIRUBIN,TOTAL 0.3 mg/dL (0.2-1.0); CREATININE 0.64 mg/dL (0.7-1.3); TOTAL PROTEIN 6.9 g/dL (6.4-8.2)
[2018-12-30] MEDS: MORPHINE SULFATE 4 MG/ML, 1ML IVPush PRN ×2 (12:53→13:52)
--- NOTE | 2018-12-30 12:58 | NUR ---
pt remains upright on gurney awake & calm, responds approp to staff, NAD, comfort measures provided, call light within reach.
[2018-12-30] MEDS ORDERED: FURO20TA3 PO (13:02)
[2018-12-30] MEDS ORDERED: POTA10TA31 PO (13:02)
[2018-12-30 13:05] LABS: BASOPHILS # (AUTO) 0.05 x10^3/uL (0-0.1); BASOPHILS % (AUTO) 1 % (0-1); EOSINOPHILS # (AUTO) 0.11 x10^3/uL (0-0.4); EOSINOPHILS % (AUTO) 1 % (1-7); LYMPHOCYTES % (AUTO) 9 % (22-44); MD MORPH REVIEW ONLY; MONOCYTES # (AUTO) 0.83 x10^3/uL (0.2-0.8); MONOCYTES % (AUTO) 9 % (2-9); NEUTROPHILS # (AUTO) 7.77 x10^3/uL (1.8-6.8); NEUTROPHILS % (AUTO) 80 % (42-75)
[2018-12-30 13:06] LABS: ANISOCYTOSIS 1+; MICROCYTOSIS 1+
--- NOTE | 2018-12-30 13:06 | NUR ---
pt to CT
[2018-12-30 13:07] LABS: <PLATELET ESTIMATE> ADEQUATE; <PLT MORPHOLOGY> NORMAL PLT MORPH; OVALOCYTES 1+
--- NOTE | 2018-12-30 13:22 | NUR ---
pt returned from CT
--- NOTE | 2018-12-30 13:55 | NUR ---
pt upright on gurney awake & calm, responds approp to staff, NAD, comfort measures provided, call light within reach.
--- NOTE | 2018-12-30 15:00 | NUR ---
pt remains upright on gurney awake & more comfortable, responds approp to staff, NAD, comfort measures provided, call light within reach.
[2018-12-30] MEDS ORDERED: SODIUM CHLORIDE FLUSH 10ML SYR IVF PRN (15:30)
[2018-12-30] MEDS ORDERED: ONDANSETRON 2MG/ML, 2ML IVPush PRN (15:30)
[2018-12-30] MEDS ORDERED: HYDROmorphone 1 MG/ML, 1ML INJ IVPush PRN (15:30)
--- NOTE | 2018-12-30 15:50 | NUR ---
Pt to be admitted to med-onc, room 345. Report called to Rona.
--- NOTE | 2018-12-30 15:54 | NUR ---
pt upright on gurney awake & more comfortable, responds approp to staff, NAD, comfort measures provided, call light within reach. pt transferring to floor.
[2018-12-30] MEDS ORDERED: POLYETHYLENE GLYCOL 17 GM PACKET PO PRN (16:00)
[2018-12-30] MEDS ORDERED: OXYcodone IR 5MG TABLET PO PRN (16:00)
[2018-12-30] MEDS ORDERED: ACETAMINOPHEN 325 MG TABLET PO PRN (16:00)
[2018-12-30] MEDS ORDERED: BISACODYL 10 MG SUPP PR PRN (16:00)
[2018-12-30] MEDS ORDERED: MORPHINE SULFATE 4 MG/ML, 1ML IVPush PRN (16:00)
[2018-12-30] MEDS ORDERED: LABETALOL 5MG/ML, 20ML IVPush PRN (16:00)
[2018-12-30 16:04] VITALS: BP 152/79
[2018-12-30] MEDS: ALBUTEROL SULFATE 2.5 MG/3 ML NPPB SCH (16:30)
[2018-12-30] MEDS: ENOXAPARIN 30 MG/0.3 ML SQ SCH (17:00)
[2018-12-30] MEDS: morphine SULFATE 10 MG/ML, 1ML IVPush PRN ×2 (17:45→20:51)
[2018-12-30] MEDS: OxyconTIN ER 10 MG TAB.ER PO SCH (18:28)
[2018-12-30 19:15] VITALS: BP 147/74
[2018-12-30] MEDS: MONTELUKAST 10 MG TABLET PO SCH (20:15)
[2018-12-30] MEDS ORDERED: TEMPLATE NON-FORMULARY MED. (Fluticasone/Salmeterol** (Advair 500-50 Diskus**) 1 PUFF) IH SCH (21:00)
[2018-12-30] MEDS ORDERED: IMATINIB 100 MG TABLET PO SCH (21:00)
[2018-12-30] MEDS ORDERED: SUCRALFATE 1 GM TABLET PO SCH (21:00)
[2018-12-30] MEDS ORDERED: FUROSEMIDE 20 MG TABLET PO SCH (21:00)
[2018-12-30] MEDS: OXYcodone IR 5MG TABLET PO PRN (22:01)
[2018-12-30] MEDS: ZOLPIDEM 5MG TABLET PO PRN (22:34)
[2018-12-31 02:03] VITALS: BP 143/81
[2018-12-31] MEDS: ONDANSETRON 2MG/ML, 2ML IVPush PRN ×3 (02:03→17:07)
[2018-12-31] MEDS: morphine SULFATE 10 MG/ML, 1ML IVPush PRN ×5 (02:06→22:36)
[2018-12-31] MEDS: ALBUTEROL SULFATE 2.5 MG/3 ML NPPB SCH ×2 (02:46→08:05)
[2018-12-31] MEDS: OxyconTIN ER 10 MG TAB.ER PO SCH (06:26)
[2018-12-31] MEDS: ENOXAPARIN 30 MG/0.3 ML SQ SCH ×2 (06:28→16:19)
[2018-12-31] MEDS: ONDANSETRON ODT 4 MG PO PRN ×2 (06:36→17:57)
[2018-12-31 07:26] VITALS: BP 140/80
[2018-12-31] MEDS: VERAPAMIL ER 240MG TABLET.ER PO SCH (07:41)
[2018-12-31] MEDS: MULTIVITAMIN 1 TABLET PO SCH (07:42)
[2018-12-31] MEDS: POTASSIUM CHLORIDE 10 MEQ TABLET.ER PO SCH (07:42)
[2018-12-31] MEDS: FUROSEMIDE 20 MG TABLET PO SCH (07:42)
[2018-12-31] MEDS: BUDESONIDE 0.5 MG/2 ML INHA NPPB SCH ×2 (08:05→19:30)
[2018-12-31] MEDS ORDERED: VERAPAMIL ER 240MG TABLET.ER PO SCH (09:00)
[2018-12-31] MEDS ORDERED: OMEPRAZOLE 20 MG CAPSULE.DR PO SCH (09:00)
[2018-12-31] MEDS: OXYcodone IR 5MG TABLET PO PRN ×3 (09:09→21:22)
[2018-12-31] MEDS ORDERED: ALBUTEROL SULFATE 2.5 MG/3 ML NPPB SCH (11:00)
[2018-12-31] MEDS: ALBUTEROL/IPRATROPIUM 2.5MG/0.5MG, 3 ML NPPB SCH ×3 (11:55→19:30)
[2018-12-31 13:57] VITALS: BP 134/73
[2018-12-31] MEDS ORDERED: OMNIPAQUE 350 MG/ML, 75ML BOTTLE ONE (17:06)
[2018-12-31] MEDS: OxyconTIN ER 15 MG TAB.ER PO SCH (17:07)
[2018-12-31 18:03] VITALS: BP 137/69
[2018-12-31 19:17] VITALS: BP 144/66
[2018-12-31 19:49] LABS: TROPONIN I < 0.015 ng/mL (0.000-0.045)
[2018-12-31] MEDS ORDERED: PROCHLORPERAZINE 5 MG/ML, 2ML IV PRN (20:00)
[2018-12-31] MEDS: MONTELUKAST 10 MG TABLET PO SCH (21:22)
[2018-12-31] MEDS: ZOLPIDEM 5MG TABLET PO PRN (23:17)
[2019-01-01 01:20] VITALS: BP 155/81
[2019-01-01] MEDS: OxyconTIN ER 15 MG TAB.ER PO SCH ×2 (05:03→18:07)
[2019-01-01] MEDS: ENOXAPARIN 30 MG/0.3 ML SQ SCH ×2 (05:05→16:50)
[2019-01-01] MEDS: ALBUTEROL/IPRATROPIUM 2.5MG/0.5MG, 3 ML NPPB SCH ×4 (06:43→18:57)
[2019-01-01] MEDS: BUDESONIDE 0.5 MG/2 ML INHA NPPB SCH ×2 (06:43→18:57)
[2019-01-01 06:53] VITALS: BP 141/80
[2019-01-01 06:53] LABS: TROPONIN I < 0.015 ng/mL (0.000-0.045)
[2019-01-01 07:35] LABS: ANION GAP 4 mmol/L (5-15); CALCIUM 8.8 mg/dL (8.5-10.1); CHLORIDE 97 mmol/L (98-107)
[2019-01-01] MEDS: FUROSEMIDE 20 MG TABLET PO SCH (07:57)
[2019-01-01] MEDS: MULTIVITAMIN 1 TABLET PO SCH (07:57)
[2019-01-01] MEDS: POTASSIUM CHLORIDE 10 MEQ TABLET.ER PO SCH (07:57)
[2019-01-01] MEDS: VERAPAMIL ER 240MG TABLET.ER PO SCH (07:57)
[2019-01-01] MEDS: OXYcodone IR 5MG TABLET PO PRN ×2 (10:19→19:27)
[2019-01-01] MEDS: ONDANSETRON 2MG/ML, 2ML IVPush PRN (12:29)
[2019-01-01 12:44] VITALS: BP 144/73
[2019-01-01 19:07] VITALS: BP 152/69
[2019-01-01] MEDS: MONTELUKAST 10 MG TABLET PO SCH (19:26)
[2019-01-01] MEDS: DOCUSATE 100 MG CAPSULE PO PRN (19:26)
[2019-01-01] MEDS: ZOLPIDEM 5MG TABLET PO PRN (23:51)
[2019-01-02] MEDS: OXYcodone IR 5MG TABLET PO PRN ×3 (02:06→19:56)
[2019-01-02 02:19] VITALS: BP 144/62
[2019-01-02] MEDS: OxyconTIN ER 15 MG TAB.ER PO SCH (05:33)
[2019-01-02] MEDS: ENOXAPARIN 30 MG/0.3 ML SQ SCH ×2 (05:35→16:09)
[2019-01-02] MEDS: ONDANSETRON 2MG/ML, 2ML IVPush PRN (06:05)
[2019-01-02] MEDS: BUDESONIDE 0.5 MG/2 ML INHA NPPB SCH ×2 (06:35→20:28)
[2019-01-02] MEDS: ALBUTEROL/IPRATROPIUM 2.5MG/0.5MG, 3 ML NPPB SCH ×2 (06:35→10:15)
[2019-01-02 07:16] VITALS: BP 146/64
[2019-01-02] MEDS: MULTIVITAMIN 1 TABLET PO SCH (08:19)
[2019-01-02] MEDS: POTASSIUM CHLORIDE 10 MEQ TABLET.ER PO SCH (08:19)
[2019-01-02] MEDS: VERAPAMIL ER 240MG TABLET.ER PO SCH (08:19)
[2019-01-02] MEDS: FUROSEMIDE 20 MG TABLET PO SCH (08:20)
[2019-01-02 12:52] VITALS: BP 143/70
[2019-01-02] MEDS ORDERED: ALBUTEROL/IPRATROPIUM 2.5MG/0.5MG, 3 ML NPPB PRN (14:30)
[2019-01-02 18:32] LABS: OCCULT BLOOD POSITIVE (NEGATIVE)
[2019-01-02] MEDS: MONTELUKAST 10 MG TABLET PO SCH (19:52)
[2019-01-02] MEDS: DOCUSATE 100 MG CAPSULE PO PRN (19:52)
[2019-01-02 20:23] VITALS: BP 158/77
[2019-01-02] MEDS: ZOLPIDEM 5MG TABLET PO PRN (23:15)
[2019-01-03] MEDS: OXYcodone IR 5MG TABLET PO PRN (00:14)
[2019-01-03 01:42] VITALS: BP 144/50
[2019-01-03] MEDS: ENOXAPARIN 30 MG/0.3 ML SQ SCH ×2 (05:47→15:35)
[2019-01-03 06:42] LABS: BASOPHILS # (AUTO) 0.02 x10^3/uL (0-0.1); BASOPHILS % (AUTO) 0 % (0-1); EOSINOPHILS # (AUTO) 0.05 x10^3/uL (0-0.4); EOSINOPHILS % (AUTO) 1 % (1-7); LYMPHOCYTES # (AUTO) 0.82 x10^3/uL (1-3.4); LYMPHOCYTES % (AUTO) 8 % (22-44); MD NO; MEAN CORPUSCULAR HEMOGLOBIN 26.3 pg (27.5-34.5); MEAN CORPUSCULAR HGB CONC 31.5 g/dL (33.2-36.2); MEAN CORPUSCULAR VOLUME 83.3 fL (81-97); MEAN PLATELET VOLUME 8.1 fL (7.4-10.4); MONOCYTES % (AUTO) 7 % (2-9); NEUTROPHILS # (AUTO) 8.41 x10^3/uL (1.8-6.8); NEUTROPHILS % (AUTO) 84 % (42-75); PLATELET COUNT 264 x10^3/uL (130-400); RED BLOOD COUNT 4.31 x10^6/uL (4.38-5.82); RED CELL DISTRIBUTION WIDTH 21.1 % (9.4-14.8)
[2019-01-03] MEDS: ONDANSETRON ODT 4 MG PO PRN (06:46)
[2019-01-03 07:36] VITALS: BP 132/67
[2019-01-03] MEDS ORDERED: OMEPRAZOLE 20 MG CAPSULE.DR PO SCH (08:30)
[2019-01-03] MEDS: BUDESONIDE 0.5 MG/2 ML INHA NPPB SCH (09:00)
[2019-01-03] MEDS: VERAPAMIL ER 240MG TABLET.ER PO SCH (09:08)
[2019-01-03] MEDS: POTASSIUM CHLORIDE 10 MEQ TABLET.ER PO SCH (09:08)
[2019-01-03] MEDS: MULTIVITAMIN 1 TABLET PO SCH (09:08)
[2019-01-03] MEDS: FUROSEMIDE 20 MG TABLET PO SCH (09:08)
[2019-01-03] MEDS ORDERED: ONDA4TAB13 PO (12:41)
[2019-01-03] MEDS ORDERED: ACET325T26 PO (12:41)
[2019-01-03] MEDS ORDERED: OXYC5TAB3 PO (12:41)
[2019-01-03 13:56] VITALS: BP 155/79
== END 2019-01-03 16:05 | disposition home or self-care (01) | DRG 699 ==
LOC: ED 12:12 → EDIP 15:45 → 3NW 15:58
PROVIDERS: ADMIT Family Medicine; ATTEND Family Medicine
DX: N28.0 Ischemia and infarction of kidney (principal); N13.39 Other hydronephrosis; Z99.81 Dependence on supplemental oxygen; I11.0 Hypertensive heart disease with heart failure; I48.91 Unspecified atrial fibrillation; J44.9 Chronic obstructive pulmonary disease, unspecified; Z80.3 Family history of malignant neoplasm of breast; Z82.49 Family history of ischemic heart disease and other diseases of the circulatory system; Z85.00 Personal history of malignant neoplasm of unspecified digestive organ; Z85.118 Personal history of other malignant neoplasm of bronchus and lung; Z87.891 Personal history of nicotine dependence; Z90.2 Acquired absence of lung [part of]; I50.9 Heart failure, unspecified
CPT/HCPCS: 36415; 71046; 71260; 74177; 80048; 80053; 81003; 82272; 82962; 83690; 84484; 85014; 85018; 85025; 93005; 94640; 96374; G0378; J1650; J2405; J7613; J7620; J7626; Q0162; Q9967; J2270

== ENCOUNTER 2019-01-30 09:45 | Outpatient (CLI) | payer MEDICARE ==
[~2019-01-30 09:45] MED LIST changes: +ACET325T26 PO; +FURO20TA3 PO; -GUAI200T3 PO; +GUAI200T37 PO; +INDO25CA22 PO; -INDO25CA5 PO; +MORP-29 PO; -MORP15TA3 PO; +ONDA4TAB13 PO; +POTA10TA31 PO
== END 2019-01-30 23:59 | disposition home or self-care (01) ==
LOC: CFH 09:45 → EDSTATUS 10:15 → CFH 23:59
PROVIDERS: ATTEND Internal Medicine Hematology & Oncology
DX: K80.20 Calculus of gallbladder without cholecystitis without obstruction (principal); C49.A9 Gastrointestinal stromal tumor of other sites; N13.30 Unspecified hydronephrosis
CPT/HCPCS: 76700

== ENCOUNTER 2019-04-29 04:07 | Inpatient (IN) | payer MEDICARE ==
[~2019-04-29] VITALS: Ht 182.9 cm; Wt 125.4 kg
[~2019-04-29 04:07] MED LIST changes: -ACET-1757 PO; +ACET-2065 PO; +AZIT500T10 PO; -AZIT500T5 PO; +OMEP40CA42 PO; -OMEP40CA6 PO
[2019-04-29] MEDS ORDERED: PANTOPRAZOLE 80 MG in SODIUM CHLORIDE 0.9% 50 ML IVPB ONE (04:48)
[2019-04-29] MEDS ORDERED: SODIUM CHLORIDE 0.9% 1,000ML IVBOLUS ONE (05:00)
[2019-04-29] MEDS ORDERED: PANTOPRAZOLE 40 MG IV IVPush ONE (05:00)
[2019-04-29] MEDS ORDERED: PANTOPRAZOLE 40 MG IV ONE (05:11)
[2019-04-29] MEDS ORDERED: MORPHINE SULFATE 4 MG/ML, 1ML ONE ×2 (05:11→06:24)
[2019-04-29] MEDS: MORPHINE SULFATE 4 MG/ML, 1ML IVPush PRN ×2 (05:14→06:29)
[2019-04-29] MEDS ORDERED: ONDANSETRON 2MG/ML, 2ML ONE (05:17)
[2019-04-29 05:23] LABS: BASOPHILS # (AUTO) 0.05 x10^3/uL (0-0.1); BASOPHILS % (AUTO) 0 % (0-1); EOSINOPHILS # (AUTO) 0.11 x10^3/uL (0-0.4); EOSINOPHILS % (AUTO) 1 % (1-7); LYMPHOCYTES # (AUTO) 0.88 x10^3/uL (1-3.4); LYMPHOCYTES % (AUTO) 7 % (22-44); MD NO; MEAN CORPUSCULAR HEMOGLOBIN 28.1 pg (27.5-34.5); MEAN CORPUSCULAR HGB CONC 31.6 g/dL (33.2-36.2); MEAN CORPUSCULAR VOLUME 88.8 fL (81-97); MEAN PLATELET VOLUME 8.5 fL (7.4-10.4); MONOCYTES # (AUTO) 0.73 x10^3/uL (0.2-0.8); MONOCYTES % (AUTO) 6 % (2-9); NEUTROPHILS # (AUTO) 10.52 x10^3/uL (1.8-6.8); NEUTROPHILS % (AUTO) 86 % (42-75); PLATELET COUNT 241 x10^3/uL (130-400); RED BLOOD COUNT 4.78 x10^6/uL (4.38-5.82); RED CELL DISTRIBUTION WIDTH 17.4 % (9.4-14.8)
[2019-04-29 05:24] LABS: INTERNATIONAL NORMALIZED RATIO 1.02 (0.93-1.1); PROTHROMBIN TIME 10.7 Seconds (9.6-11.5)
[2019-04-29 05:28] LABS: CHLORIDE 103 mmol/L (98-107)
--- NOTE | 2019-04-29 05:29 | NUR ---
PT MEDICATED FOR PAIN PER EMAR.
--- NOTE | 2019-04-29 05:29 | NUR ---
PT TO RAD AT THIS TIME.
[2019-04-29] MEDS ORDERED: ONDANSETRON 2MG/ML, 2ML IVPush ONE (05:30)
[2019-04-29 05:36] LABS: ALANINE AMINOTRANSFERASE 22 U/L (12-78); ALBUMIN 3.6 g/dL (3.4-5.0); ALKALINE PHOSPHATASE 130 U/L (45-117); ANION GAP 6 mmol/L (5-15); BILIRUBIN,TOTAL 0.4 mg/dL (0.2-1.0); CREATININE 0.58 mg/dL (0.7-1.3); TOTAL PROTEIN 6.7 g/dL (6.4-8.2)
[2019-04-29 05:39] LABS: TROPONIN I < 0.015 ng/mL (0.000-0.045)
[2019-04-29] MEDS ORDERED: SODIUM CHLORIDE 0.9% 1,000 ML IV ONE (06:03)
--- NOTE | 2019-04-29 06:07 | NUR ---
PT PROVIDED URINAL FOR URINE SAMPLE AND BEDSIDE CAMMODE PROVIDED.
--- NOTE | 2019-04-29 06:20 | NUR ---
REPORT TO AMY YOO
[2019-04-29] MEDS ORDERED: SODIUM CHLORIDE FLUSH 10ML SYR IVF PRN (06:30)
[2019-04-29] MEDS ORDERED: FLUT1DIS IH (06:36)
[2019-04-29] MEDS ORDERED: ALBU18HF INH (06:36)
--- NOTE | 2019-04-29 06:38 | NUR ---
pt report pain has improved from 8/10 to 6/10. pt now with c/o headache.
[2019-04-29 07:00] VITALS: BP 130/79
[2019-04-29] MEDS ORDERED: hydrALAzine 20 MG/ML, 1ML IVPush PRN (07:00)
[2019-04-29] MEDS ORDERED: morphine SULFATE 10 MG/ML, 1ML IVPush PRN (07:00)
[2019-04-29] MEDS ORDERED: ALBUTEROL SULFATE 2.5 MG/3 ML NEB PRN ×2 (07:00→07:30)
[2019-04-29 07:02] LABS: MICROSCOPIC INDICATED
[2019-04-29 07:16] LABS: CULTURE INDICATED? NO
[2019-04-29] MEDS: BUDESONIDE 0.5 MG/2 ML INHA NPPB SCH ×2 (08:43→19:59)
[2019-04-29] MEDS: ALBUTEROL/IPRATROPIUM 2.5MG/0.5MG, 3 ML NPPB SCH ×3 (08:43→19:59)
[2019-04-29] MEDS ORDERED: PANTOPRAZOLE 40 MG IV IVPush SCH (09:00)
[2019-04-29] MEDS: ACETAMINOPHEN 325 MG TABLET PO PRN (09:11)
[2019-04-29] MEDS: NS + 20MEQ KCL 1,000 ML IV SCH ×2 (09:11→18:06)
[2019-04-29] MEDS: POTASSIUM CHLORIDE 10 MEQ TABLET.ER PO SCH (09:11)
[2019-04-29] MEDS: VERAPAMIL ER 240MG TABLET.ER PO SCH (09:11)
[2019-04-29] MEDS: MULTIVITAMIN 1 TABLET PO SCH (09:11)
[2019-04-29] MEDS ORDERED: ALBUTEROL/IPRATROPIUM 2.5MG/0.5MG, 3 ML NPPB SCH (11:00)
[2019-04-29] MEDS: OXYcodone IR 5MG TABLET PO PRN ×3 (11:15→20:42)
[2019-04-29 14:30] VITALS: BP 127/72
[2019-04-29 16:44] LABS: CLOSTRIDIUM DIFFICILE ANTIGEN NEGATIVE; CLOSTRIDIUM DIFFICILE TOXIN NEGATIVE (Negative)
[2019-04-29] MEDS: PANTOPROZOLE 40MG TABLET PO SCH (17:34)
[2019-04-29 19:50] VITALS: BP 137/81
[2019-04-29] MEDS: MONTELUKAST 10 MG TABLET PO SCH (20:42)
[2019-04-29] MEDS: IMATINIB 100 MG TABLET PO SCH (21:00)
[2019-04-29] MEDS ORDERED: ZOLPIDEM 5MG TABLET PO PRN (21:00)
[2019-04-30 02:00] VITALS: BP 132/70
[2019-04-30] MEDS: NS + 20MEQ KCL 1,000 ML IV SCH ×2 (02:54→13:42)
[2019-04-30] MEDS: ALBUTEROL/IPRATROPIUM 2.5MG/0.5MG, 3 ML NPPB SCH ×4 (04:10→19:59)
[2019-04-30 06:20] LABS: CHLORIDE 106 mmol/L (98-107)
[2019-04-30 06:27] VITALS: BP 154/79
[2019-04-30 06:27] LABS: ANION GAP 2 mmol/L (5-15); CALCIUM 7.5 mg/dL (8.5-10.1); CREATININE 0.42 mg/dL (0.7-1.3)
[2019-04-30] MEDS: BUDESONIDE 0.5 MG/2 ML INHA NPPB SCH ×2 (09:00→19:59)
[2019-04-30] MEDS: POTASSIUM CHLORIDE 10 MEQ TABLET.ER PO SCH (09:04)
[2019-04-30] MEDS: PANTOPROZOLE 40MG TABLET PO SCH ×2 (09:04→16:55)
[2019-04-30] MEDS: MULTIVITAMIN 1 TABLET PO SCH (09:04)
[2019-04-30] MEDS: VERAPAMIL ER 240MG TABLET.ER PO SCH (09:04)
[2019-04-30] MEDS: OXYcodone IR 5MG TABLET PO PRN ×3 (09:47→21:34)
[2019-04-30 12:11] VITALS: BP 143/86
[2019-04-30] MEDS ORDERED: ACETAMINOPHEN 325 MG TABLET PO PRN (14:30)
[2019-04-30] MEDS ORDERED: hydrALAzine 20 MG/ML, 1ML IV PRN (14:30)
[2019-04-30] MEDS ORDERED: MIDAZOLAM 1 MG/ML, 2ML IV PRN (14:30)
[2019-04-30] MEDS ORDERED: MEPERIDINE/PF 25MG/ML,1ML IVPush PRN (14:30)
[2019-04-30] MEDS ORDERED: ONDANSETRON 2MG/ML, 2ML IV PRN (14:30)
[2019-04-30] MEDS ORDERED: ALBUTEROL/IPRATROPIUM 2.5MG/0.5MG, 3 ML NPPB PRN (14:30)
[2019-04-30] MEDS ORDERED: OXYcodone 5 MG/5 ML ORAL.SOL UDC PO PRN (14:30)
[2019-04-30] MEDS ORDERED: FENTANYL PF 100 MCG/2ML IV PRN (14:30)
[2019-04-30] MEDS ORDERED: PROPOFOL 10 MG/ML, 20ML ONE (14:36)
[2019-04-30] MEDS: MONTELUKAST 10 MG TABLET PO SCH (19:58)
[2019-04-30 20:34] VITALS: BP 149/86
[2019-04-30] MEDS: IMATINIB 100 MG TABLET PO SCH (21:00)
[2019-04-30] MEDS ORDERED: ZOLPIDEM 5MG TABLET PO PRN (23:30)
[2019-05-01 01:40] VITALS: BP 133/71
[2019-05-01] MEDS: OXYcodone IR 5MG TABLET PO PRN ×2 (01:55→06:43)
[2019-05-01] MEDS: ACETAMINOPHEN 325 MG TABLET PO PRN (04:36)
[2019-05-01 06:32] VITALS: BP 157/73
[2019-05-01] MEDS: BUDESONIDE 0.5 MG/2 ML INHA NPPB SCH (07:24)
[2019-05-01] MEDS: ALBUTEROL/IPRATROPIUM 2.5MG/0.5MG, 3 ML NPPB SCH (07:24)
[2019-05-01] MEDS ORDERED: PANTOPRAZOLE 20MG TABLET PO SCH (08:00)
[2019-05-01] MEDS ORDERED: PANT20TA3 PO (08:43)
[2019-05-01] MEDS: MULTIVITAMIN 1 TABLET PO SCH (08:51)
[2019-05-01] MEDS: VERAPAMIL ER 240MG TABLET.ER PO SCH (08:51)
[2019-05-01] MEDS: POTASSIUM CHLORIDE 10 MEQ TABLET.ER PO SCH (08:51)
[2019-05-01] MEDS ORDERED: PANTOPROZOLE 40MG TABLET ONE (08:53)
== END 2019-05-01 11:15 | disposition home or self-care (01) | DRG 375 ==
LOC: ED 05:58 → EDIP 06:03 → ED 06:13 → 4EST 07:02 → DCLOUNGE 05-01 11:07
PROVIDERS: ADMIT Family Medicine; ATTEND Family Medicine
PROC: 0DJ08ZZ Inspection of Upper Intestinal Tract, Via Natural or Artificial Opening Endoscopic (ICD-10-PCS; principal; 2019-04-29)
DX: C49.A9 Gastrointestinal stromal tumor of other sites (principal); K92.1 Melena; I47.2 Ventricular tachycardia; K56.7 Ileus, unspecified; D64.9 Anemia, unspecified; E87.6 Hypokalemia; F17.200 Nicotine dependence, unspecified, uncomplicated; I11.0 Hypertensive heart disease with heart failure; I25.10 Atherosclerotic heart disease of native coronary artery without angina pectoris; I48.91 Unspecified atrial fibrillation; I50.9 Heart failure, unspecified; E66.01 Morbid (severe) obesity due to excess calories; J43.9 Emphysema, unspecified; Z79.4 Long term (current) use of insulin; Z79.899 Other long term (current) drug therapy; Z80.3 Family history of malignant neoplasm of breast; Z85.00 Personal history of malignant neoplasm of unspecified digestive organ; Z85.118 Personal history of other malignant neoplasm of bronchus and lung; Z86.711 Personal history of pulmonary embolism; Z87.11 Personal history of peptic ulcer disease; Z90.2 Acquired absence of lung [part of]; Z99.81 Dependence on supplemental oxygen; Z90.49 Acquired absence of other specified parts of digestive tract; Z68.37 Body mass index [BMI] 37.0-37.9, adult
CPT/HCPCS: 36415; 74022; 80048; 80053; 81001; 83690; 83735; 84484; 85018; 85025; 85610; 85730; 87324; 89055; 93005; 94640; 96365; 96368; 96375; 96376; G0378; J2405; J2704; J3480; J7620; J7626; C9113; J2270; J7030

== ENCOUNTER → 2019-07-02 | Outpatient (CLI) | payer MEDICARE ==
[~2019-07-02] MED LIST changes: +FLUT1DIS IH; +OMNIPAQUE 350 MG/ML, 100ML BOTTLE ONE; +PANT20TA3 PO
== END | disposition home or self-care (01) ==
LOC: CFH 09:44
PROVIDERS: ATTEND Internal Medicine Hematology & Oncology
DX: C49.A0 Gastrointestinal stromal tumor, unspecified site (principal)
CPT/HCPCS: 74160; Q9967

== ENCOUNTER 2019-07-23 11:37 | Observation (INO) | payer MEDICARE, OTHER ==
[~2019-07-23] VITALS: Ht 182.9 cm; Wt 128.1 kg
[~2019-07-23 11:37] MED LIST changes: -OMNIPAQUE 350 MG/ML, 100ML BOTTLE ONE
[2019-07-23] MEDS ORDERED: ALBUTEROL/IPRATROPIUM 2.5MG/0.5MG, 3 ML NPPB SCH ×2 (12:30→21:00)
[2019-07-23 12:49] LABS: BASOPHILS # (AUTO) 0.04 x10^3/uL (0-0.1); BASOPHILS % (AUTO) 1 % (0-1); EOSINOPHILS # (AUTO) 0.07 x10^3/uL (0-0.4); EOSINOPHILS % (AUTO) 1 % (1-7); LYMPHOCYTES # (AUTO) 0.92 x10^3/uL (1-3.4); LYMPHOCYTES % (AUTO) 12 % (22-44); MD NO; MEAN CORPUSCULAR HEMOGLOBIN 30.6 pg (27.5-34.5); MEAN CORPUSCULAR HGB CONC 32.5 g/dL (33.2-36.2); MEAN CORPUSCULAR VOLUME 94.2 fL (81-97); MEAN PLATELET VOLUME 8.5 fL (7.4-10.4); MONOCYTES # (AUTO) 0.61 x10^3/uL (0.2-0.8); MONOCYTES % (AUTO) 8 % (2-9); NEUTROPHILS # (AUTO) 5.76 x10^3/uL (1.8-6.8); NEUTROPHILS % (AUTO) 78 % (42-75); PLATELET COUNT 213 x10^3/uL (130-400); RED BLOOD COUNT 4.24 x10^6/uL (4.38-5.82); RED CELL DISTRIBUTION WIDTH 16.7 % (9.4-14.8)
[2019-07-23] MEDS ORDERED: ALBUTEROL/IPRATROPIUM 2.5MG/0.5MG, 3 ML ONE (12:49)
--- NOTE | 2019-07-23 12:50 | NUR ---
late entry d/t patient care: pt presents to ED with c/o shortness of breath x 2-3 days, and sternal CP only with coughing. pt states he wears oxygen at 2L/min via NC for hx COPD. pt is a&o, resps even and unlabored, pt speaking in full sentences. all monitors in place, pt is sinus tach rate 90-100s on bus driver/monitor with no ectopy noted. awaiitng cxr and lab results at this time.
[2019-07-23 12:54] LABS: ALANINE AMINOTRANSFERASE 25 U/L (12-78); ALBUMIN 3.3 g/dL (3.4-5.0); ANION GAP 3 mmol/L (5-15); CALCIUM 8.4 mg/dL (8.5-10.1); CHLORIDE 102 mmol/L (98-107)
[2019-07-23 12:59] LABS: ALKALINE PHOSPHATASE 103 U/L (45-117); BILIRUBIN,TOTAL 0.3 mg/dL (0.2-1.0); CREATININE 0.62 mg/dL (0.7-1.3); TOTAL PROTEIN 6.5 g/dL (6.4-8.2); TROPONIN I < 0.015 ng/mL (0.000-0.045)
--- NOTE | 2019-07-23 13:00 | NUR ---
late entry dt patient care: chemo precautions in place for patient care and disposal of body fluids/linens.
[2019-07-23 13:05] LABS: RAPID INFLUENZA A Negative (Negative); RAPID INFLUENZA B Negative (Negative)
--- NOTE | 2019-07-23 13:13 | NUR ---
dr basurto spoke with unr dr julio
[2019-07-23] MEDS ORDERED: SODIUM CHLORIDE FLUSH 10ML SYR IVF PRN (13:30)
--- NOTE | 2019-07-23 13:30 | NUR ---
late entry d/t patient care: task RN Jorge at bedside for PIV start and medical office administrator.
[2019-07-23] MEDS ORDERED: FURO40TA6 PO (13:59)
--- NOTE | 2019-07-23 14:29 | NUR ---
pt resting on gurney, resps even and unlabored, pt is nsr on traffic monitor specialist, rate 80s with no ectopy. pt denies pain. this RN has attempted to reach receiving RN for report x 2. awaiting transport once report given.
[2019-07-23] MEDS ORDERED: ENALAPRILAT 1.25 MG/ML, 2ML IVPush PRN (14:30)
[2019-07-23] MEDS ORDERED: ALBUTEROL/IPRATROPIUM 2.5MG/0.5MG, 3 ML HHN PRN (14:30)
[2019-07-23] MEDS ORDERED: DOCUSATE 100 MG CAPSULE PO PRN (14:30)
[2019-07-23] MEDS ORDERED: POLYETHYLENE GLYCOL 17 GM PACKET PO PRN (14:30)
[2019-07-23] MEDS: ENOXAPARIN 30 MG/0.3 ML SQ SCH ×2 (14:30→21:33)
[2019-07-23] MEDS ORDERED: ACETAMINOPHEN 325 MG TABLET PO PRN (14:30)
--- NOTE | 2019-07-23 14:37 | NUR ---
report called to receiving medical RN Michelle.
--- NOTE | 2019-07-23 14:43 | NUR ---
receiving RN notififed of need for chemo precautions to be continued.
[2019-07-23 15:17] VITALS: BP 156/80
[2019-07-23] MEDS ORDERED: ALBUTEROL SULFATE 2.5MG/0.5ML NPPB PRN (15:30)
[2019-07-23] MEDS ORDERED: ALBUTEROL/IPRATROPIUM 2.5MG/0.5MG, 3 ML NPPB PRN (15:30)
[2019-07-23] MEDS ORDERED: hydrOXyzine 50MG TABLET PO PRN (17:00)
[2019-07-23 19:55] VITALS: BP 163/74
[2019-07-23] MEDS: ALBUTEROL/IPRATROPIUM 2.5MG/0.5MG, 3 ML NPPB SCH (20:16)
[2019-07-23] MEDS: BUDESONIDE 0.5 MG/2 ML INHA NPPB SCH (20:16)
[2019-07-23] MEDS ORDERED: MONTELUKAST 10 MG TABLET PO SCH (21:00)
[2019-07-23] MEDS ORDERED: [UNRECOGNIZED DRUG - OTHER] PO SCH (21:00)
[2019-07-23] MEDS ORDERED: IRON CARBONYL PO SCH (21:00)
[2019-07-23] MEDS ORDERED: ASCORBIC ACID PO SCH (21:00)
[2019-07-23] MEDS ORDERED: IMATINIB 400 MG TABLET PO SCH (21:00)
[2019-07-24 01:24] VITALS: BP 138/69
[2019-07-24] MEDS: ALBUTEROL/IPRATROPIUM 2.5MG/0.5MG, 3 ML NPPB SCH ×2 (03:30→09:54)
[2019-07-24 05:59] LABS: BASOPHILS # (AUTO) 0.02 x10^3/uL (0-0.1); BASOPHILS % (AUTO) 0 % (0-1); EOSINOPHILS # (AUTO) 0.01 x10^3/uL (0-0.4); EOSINOPHILS % (AUTO) 0 % (1-7); LYMPHOCYTES % (AUTO) 10 % (22-44); MD NO; MEAN CORPUSCULAR HEMOGLOBIN 30.9 pg (27.5-34.5); MEAN CORPUSCULAR HGB CONC 32.4 g/dL (33.2-36.2); MEAN CORPUSCULAR VOLUME 95.3 fL (81-97); MEAN PLATELET VOLUME 8.6 fL (7.4-10.4); MONOCYTES # (AUTO) 0.47 x10^3/uL (0.2-0.8); MONOCYTES % (AUTO) 5 % (2-9); NEUTROPHILS % (AUTO) 85 % (42-75); PLATELET COUNT 213 x10^3/uL (130-400); RED BLOOD COUNT 4.32 x10^6/uL (4.38-5.82); RED CELL DISTRIBUTION WIDTH 16.5 % (9.4-14.8)
[2019-07-24 07:55] VITALS: BP 163/74
[2019-07-24] MEDS ORDERED: TEMPLATE NON-FORMULARY MED. (Fluticasone/Salmeterol** (Advair 100-50 Diskus**) 1 PUFF) IH SCH (09:00)
[2019-07-24] MEDS ORDERED: FUROSEMIDE 40 MG TABLET PO SCH (09:00)
[2019-07-24] MEDS ORDERED: VERAPAMIL ER 240MG TABLET.ER PO SCH (09:00)
[2019-07-24] MEDS ORDERED: POTASSIUM CHLORIDE 10 MEQ TABLET.ER PO SCH (09:00)
[2019-07-24] MEDS ORDERED: MULTIVITAMIN 1 TABLET PO SCH (09:00)
[2019-07-24] MEDS: ENOXAPARIN 30 MG/0.3 ML SQ SCH (09:47)
[2019-07-24] MEDS: BUDESONIDE 0.5 MG/2 ML INHA NPPB SCH (09:55)
[2019-07-24] MEDS ORDERED: PRED10TA PO (11:43)
[2019-07-24 12:47] VITALS: BP 155/69
[2019-07-24] MEDS ORDERED: PRED20TA PO (13:45)
== END 2019-07-24 13:56 | disposition home or self-care (01) ==
LOC: ED 13:14 → INTOOBSV 13:15 → EDIP 13:15 → ED 13:17 → 3N 14:24 → 4NW 19:21 → DCLOUNGE 07-24 13:40
PROVIDERS: ADMIT Family Medicine; ATTEND Family Medicine
DX: J44.1 Chronic obstructive pulmonary disease with (acute) exacerbation (principal); R09.02 Hypoxemia; I48.91 Unspecified atrial fibrillation; I11.0 Hypertensive heart disease with heart failure; C49.A0 Gastrointestinal stromal tumor, unspecified site; I50.9 Heart failure, unspecified; Z85.118 Personal history of other malignant neoplasm of bronchus and lung; Z90.2 Acquired absence of lung [part of]; Z87.891 Personal history of nicotine dependence
CPT/HCPCS: 36415; 71045; 80053; 83880; 84484; 85025; 87400; 93005; 94640; 96372; 99284; G0378; J1650; J7512; J7620; J7626

== ENCOUNTER 2019-09-08 06:09 | Observation (INO) | payer MEDICARE, OTHER ==
[~2019-09-08] VITALS: Ht 182.9 cm; Wt 134.8 kg
[~2019-09-08 06:09] MED LIST changes: +VERA120T13 PO; -VERA120T5 PO
[2019-09-08] MEDS ORDERED: ALBUTEROL/IPRATROPIUM 2.5MG/0.5MG, 3 ML NEB ONE (06:30)
--- NOTE | 2019-09-08 06:55 | NUR ---
report received from edmond wall.
[2019-09-08] MEDS ORDERED: methylPREDNISolone SOD SUCC 125 MG/2 ML ONE (06:59)
[2019-09-08] MEDS ORDERED: methylPREDNISolone SOD SUCC 125 MG/2 ML IV ONE (07:00)
[2019-09-08 07:08] LABS: RAPID INFLUENZA A Negative (Negative); RAPID INFLUENZA B Negative (Negative)
[2019-09-08 07:13] LABS: BASOPHILS # (AUTO) 0.04 x10^3/uL (0-0.1); BASOPHILS % (AUTO) 0 % (0-1); EOSINOPHILS # (AUTO) 0.02 x10^3/uL (0-0.4); EOSINOPHILS % (AUTO) 0 % (1-7); LYMPHOCYTES # (AUTO) 1.03 x10^3/uL (1-3.4); LYMPHOCYTES % (AUTO) 7 % (22-44); MD NO; MEAN CORPUSCULAR HEMOGLOBIN 31.7 pg (27.5-34.5); MEAN CORPUSCULAR HGB CONC 33.1 g/dL (33.2-36.2); MEAN CORPUSCULAR VOLUME 95.7 fL (81-97); MEAN PLATELET VOLUME 8.3 fL (7.4-10.4); MONOCYTES # (AUTO) 0.76 x10^3/uL (0.2-0.8); MONOCYTES % (AUTO) 5 % (2-9); NEUTROPHILS # (AUTO) 12.65 x10^3/uL (1.8-6.8); NEUTROPHILS % (AUTO) 87 % (42-75); PLATELET COUNT 232 x10^3/uL (130-400); RED BLOOD COUNT 4.78 x10^6/uL (4.38-5.82); RED CELL DISTRIBUTION WIDTH 14.5 % (9.4-14.8)
[2019-09-08 07:22] LABS: ALANINE AMINOTRANSFERASE 28 U/L (12-78); ALBUMIN 3.6 g/dL (3.4-5.0); ANION GAP 6 mmol/L (5-15); CHLORIDE 99 mmol/L (98-107); CREATININE 0.48 mg/dL (0.7-1.3)
[2019-09-08 07:26] LABS: ALKALINE PHOSPHATASE 122 U/L (45-117); BILIRUBIN,TOTAL 0.7 mg/dL (0.2-1.0); TOTAL PROTEIN 6.9 g/dL (6.4-8.2); TROPONIN I < 0.015 ng/mL (0.000-0.045)
[2019-09-08] MEDS ORDERED: SODIUM CHLORIDE FLUSH 10ML SYR IVF ONE (07:30)
[2019-09-08] MEDS ORDERED: ALBUTEROL/IPRATROPIUM 2.5MG/0.5MG, 3 ML ONE (07:30)
[2019-09-08] MEDS ORDERED: ALBUTEROL SULFATE 2.5 MG/3 ML NPPB ONE ×2 (07:30→08:30)
--- NOTE | 2019-09-08 07:31 | NUR ---
RT AT BEDSIDE AT THIS TIME.
--- NOTE | 2019-09-08 07:44 | NUR ---
PT MEDICATED PER EMAR. PT TOLERATED WELL.
[2019-09-08] MEDS ORDERED: ONDANSETRON 2MG/ML, 2ML ONE (08:44)
[2019-09-08] MEDS ORDERED: ACETAMINOPHEN 325 MG TABLET ONE (08:44)
--- NOTE | 2019-09-08 08:48 | NUR ---
PT MEDICATED PER EMAR. PT TOLERATED WELL. PT'S AOX4. RESPS EVEN AND UNLABORED.
[2019-09-08] MEDS ORDERED: ONDANSETRON 2MG/ML, 2ML IVPush ONE (09:00)
[2019-09-08] MEDS ORDERED: ACETAMINOPHEN 325 MG TABLET PO ONE (09:00)
--- NOTE | 2019-09-08 09:20 | NUR ---
ABX INFUSING AT THIS TIME. PT TOLERATED WELL.
[2019-09-08] MEDS ORDERED: AZITHROMYCIN 500 MG in SODIUM CHLORIDE 0.9% 250 ML IV ONE (09:30)
--- NOTE | 2019-09-08 10:42 | NUR ---
pt states"i parked my car in front of ed." this rn called security.
--- NOTE | 2019-09-08 11:58 | NUR ---
hospitalist at bedside at this time.
[2019-09-08] MEDS ORDERED: ZIPRASIDONE 20 MG INJ IM ONE (12:15)
--- NOTE | 2019-09-08 12:53 | NUR ---
LUNCH RN: PER PT REQUEST CALLS PLACED TO TONI [phone] AND HARVEY [phone], VOICEMAILS LEFT. PT UPDATED
--- NOTE | 2019-09-08 12:57 | NUR ---
REPORT GIVEN TO COTY REYES. ALL QUESTIONS ANSWERED.
[2019-09-08 13:30] VITALS: BP 168/94
[2019-09-08] MEDS ORDERED: POLYETHYLENE GLYCOL 17 GM PACKET PO PRN (14:00)
[2019-09-08] MEDS ORDERED: DOCUSATE 100 MG CAPSULE PO PRN (14:00)
[2019-09-08] MEDS ORDERED: hydrALAzine 20 MG/ML, 1ML IVPush PRN (14:00)
[2019-09-08] MEDS ORDERED: ONDANSETRON 2MG/ML, 2ML IVPush PRN (14:00)
[2019-09-08] MEDS ORDERED: GUAIFENESIN/DM 200-20MG, 10ML UDC PO PRN (14:00)
[2019-09-08] MEDS ORDERED: IPRATROPIUM 0.5 MG/2.5 ML INHA HHN SCH (14:00)
[2019-09-08] MEDS ORDERED: ALBUTEROL SULFATE 2.5 MG/3 ML NPPB PRN (14:00)
[2019-09-08] MEDS ORDERED: BISACODYL 10 MG SUPP PR PRN (14:00)
[2019-09-08] MEDS: ALBUTEROL/IPRATROPIUM 2.5MG/0.5MG, 3 ML NPPB SCH ×2 (14:10→19:02)
[2019-09-08] MEDS ORDERED: ALBUTEROL/IPRATROPIUM 2.5MG/0.5MG, 3 ML NPPB SCH (15:00)
[2019-09-08] MEDS ORDERED: MELATONIN 5 MG TABLET PO PRN (16:30)
[2019-09-08] MEDS: KETOROLAC 30 MG/1 ML IV PRN (17:25)
[2019-09-08] MEDS: ENOXAPARIN 40 MG/0.4 ML SQ SCH (17:26)
[2019-09-08 18:45] VITALS: BP 155/93
[2019-09-08] MEDS: ACETAMINOPHEN 325 MG TABLET PO PRN (20:50)
[2019-09-08] MEDS: MONTELUKAST 10 MG TABLET PO SCH (20:51)
[2019-09-08] MEDS: IMATINIB 400 MG TABLET PO SCH (21:00)
[2019-09-08] MEDS ORDERED: BUDESONIDE 0.5 MG/2 ML INHA INH SCH (21:00)
[2019-09-08] MEDS ORDERED: BUDESONIDE 0.5 MG/2 ML INHA NPPB SCH (21:00)
[2019-09-09 01:33] VITALS: BP 123/66
[2019-09-09] MEDS: ALBUTEROL/IPRATROPIUM 2.5MG/0.5MG, 3 ML NPPB SCH ×5 (03:30→20:36)
[2019-09-09 05:16] LABS: BASOPHILS % (AUTO) 0 % (0-1); EOSINOPHILS % (AUTO) 0 % (1-7); LYMPHOCYTES # (AUTO) 0.86 x10^3/uL (1-3.4); LYMPHOCYTES % (AUTO) 7 % (22-44); MD NO; MEAN CORPUSCULAR HEMOGLOBIN 31.5 pg (27.5-34.5); MEAN CORPUSCULAR HGB CONC 32.3 g/dL (33.2-36.2); MEAN CORPUSCULAR VOLUME 97.7 fL (81-97); MEAN PLATELET VOLUME 8.4 fL (7.4-10.4); MONOCYTES # (AUTO) 0.73 x10^3/uL (0.2-0.8); MONOCYTES % (AUTO) 6 % (2-9); NEUTROPHILS # (AUTO) 11.16 x10^3/uL (1.8-6.8); NEUTROPHILS % (AUTO) 88 % (42-75); PLATELET COUNT 206 x10^3/uL (130-400); RED BLOOD COUNT 4.42 x10^6/uL (4.38-5.82); RED CELL DISTRIBUTION WIDTH 14.7 % (9.4-14.8)
[2019-09-09 05:25] LABS: ANION GAP 3 mmol/L (5-15); CHLORIDE 102 mmol/L (98-107)
[2019-09-09 08:04] VITALS: BP 148/81
[2019-09-09] MEDS: POTASSIUM CHLORIDE 20 MEQ TAB.ER.PRT PO SCH (08:05)
[2019-09-09] MEDS: FUROSEMIDE 40 MG TABLET PO SCH (08:05)
[2019-09-09] MEDS: AZITHROMYCIN 250 MG TABLET PO SCH (08:05)
[2019-09-09] MEDS: MULTIVITAMIN 1 TABLET PO SCH (08:05)
[2019-09-09] MEDS: VERAPAMIL ER 240MG TABLET.ER PO SCH ×2 (08:06→10:39)
[2019-09-09] MEDS: KETOROLAC 30 MG/1 ML IV PRN ×3 (08:08→20:31)
[2019-09-09] MEDS: BUDESONIDE 0.5 MG/2 ML INHA NPPB SCH ×3 (10:39→20:36)
[2019-09-09 12:50] VITALS: BP 146/80
[2019-09-09] MEDS: ENOXAPARIN 40 MG/0.4 ML SQ SCH (14:02)
[2019-09-09 18:39] VITALS: BP 157/74
[2019-09-09] MEDS: MONTELUKAST 10 MG TABLET PO SCH (20:32)
[2019-09-09] MEDS: IMATINIB 400 MG TABLET PO SCH (20:38)
[2019-09-09] MEDS ORDERED: ZOLPIDEM 5MG TABLET PO ONE ×2 (22:30)
[2019-09-10 01:56] VITALS: BP 129/76
[2019-09-10] MEDS: KETOROLAC 30 MG/1 ML IV PRN (04:52)
[2019-09-10 05:27] LABS: ANION GAP 3 mmol/L (5-15); CALCIUM 7.9 mg/dL (8.5-10.1); CHLORIDE 100 mmol/L (98-107); CREATININE 0.57 mg/dL (0.7-1.3)
[2019-09-10 05:28] LABS: BASOPHILS # (AUTO) 0.03 x10^3/uL (0-0.1); BASOPHILS % (AUTO) 0 % (0-1); EOSINOPHILS # (AUTO) 0.02 x10^3/uL (0-0.4); EOSINOPHILS % (AUTO) 0 % (1-7); LYMPHOCYTES # (AUTO) 2.03 x10^3/uL (1-3.4); LYMPHOCYTES % (AUTO) 21 % (22-44); MD NO; MEAN CORPUSCULAR HEMOGLOBIN 31.3 pg (27.5-34.5); MEAN CORPUSCULAR HGB CONC 32.4 g/dL (33.2-36.2); MEAN CORPUSCULAR VOLUME 96.5 fL (81-97); MEAN PLATELET VOLUME 8.8 fL (7.4-10.4); MONOCYTES # (AUTO) 0.83 x10^3/uL (0.2-0.8); MONOCYTES % (AUTO) 9 % (2-9); NEUTROPHILS % (AUTO) 70 % (42-75); PLATELET COUNT 187 x10^3/uL (130-400); RED BLOOD COUNT 4.32 x10^6/uL (4.38-5.82); RED CELL DISTRIBUTION WIDTH 14.6 % (9.4-14.8)
[2019-09-10 08:00] VITALS: BP 130/72
[2019-09-10 08:06] VITALS: BP 144/83
[2019-09-10] MEDS: FUROSEMIDE 40 MG TABLET PO SCH (08:07)
[2019-09-10] MEDS: VERAPAMIL ER 240MG TABLET.ER PO SCH (08:07)
[2019-09-10] MEDS: MULTIVITAMIN 1 TABLET PO SCH (08:07)
[2019-09-10] MEDS: AZITHROMYCIN 250 MG TABLET PO SCH (08:07)
[2019-09-10] MEDS: POTASSIUM CHLORIDE 20 MEQ TAB.ER.PRT PO SCH (08:07)
[2019-09-10] MEDS: ACETAMINOPHEN 325 MG TABLET PO PRN (08:10)
[2019-09-10] MEDS: ALBUTEROL/IPRATROPIUM 2.5MG/0.5MG, 3 ML NPPB SCH ×3 (08:18→19:50)
[2019-09-10] MEDS: BUDESONIDE 0.5 MG/2 ML INHA NPPB SCH ×2 (08:18→19:50)
[2019-09-10] MEDS ORDERED: ZOLPIDEM 5MG TABLET PO PRN (08:30)
[2019-09-10] MEDS: IBUPROFEN 600 MG TABLET PO PRN ×3 (11:05→22:26)
[2019-09-10] MEDS: ENOXAPARIN 40 MG/0.4 ML SQ SCH (13:52)
[2019-09-10 14:37] VITALS: BP 137/68
[2019-09-10 19:38] VITALS: BP 166/76
[2019-09-10] MEDS: IMATINIB 400 MG TABLET PO SCH (20:13)
[2019-09-10] MEDS: MONTELUKAST 10 MG TABLET PO SCH (20:57)
[2019-09-11 01:32] VITALS: BP 148/69
[2019-09-11 06:02] LABS: BASOPHILS # (AUTO) 0.03 x10^3/uL (0-0.1); BASOPHILS % (AUTO) 0 % (0-1); EOSINOPHILS # (AUTO) 0.02 x10^3/uL (0-0.4); EOSINOPHILS % (AUTO) 0 % (1-7); LYMPHOCYTES # (AUTO) 1.86 x10^3/uL (1-3.4); LYMPHOCYTES % (AUTO) 21 % (22-44); MD NO; MEAN CORPUSCULAR HEMOGLOBIN 31.1 pg (27.5-34.5); MEAN CORPUSCULAR HGB CONC 32.1 g/dL (33.2-36.2); MEAN CORPUSCULAR VOLUME 96.9 fL (81-97); MEAN PLATELET VOLUME 8.6 fL (7.4-10.4); MONOCYTES # (AUTO) 0.79 x10^3/uL (0.2-0.8); MONOCYTES % (AUTO) 9 % (2-9); NEUTROPHILS # (AUTO) 6.18 x10^3/uL (1.8-6.8); NEUTROPHILS % (AUTO) 70 % (42-75); PLATELET COUNT 173 x10^3/uL (130-400); RED BLOOD COUNT 4.33 x10^6/uL (4.38-5.82); RED CELL DISTRIBUTION WIDTH 14.9 % (9.4-14.8)
[2019-09-11 06:13] LABS: ANION GAP 4 mmol/L (5-15); CALCIUM 7.8 mg/dL (8.5-10.1); CHLORIDE 100 mmol/L (98-107)
[2019-09-11 06:19] LABS: ALANINE AMINOTRANSFERASE 22 U/L (12-78); ALKALINE PHOSPHATASE 86 U/L (45-117); BILIRUBIN,TOTAL 0.2 mg/dL (0.2-1.0); CREATININE 0.59 mg/dL (0.7-1.3); TOTAL PROTEIN 5.8 g/dL (6.4-8.2)
[2019-09-11 07:47] VITALS: BP 149/78
[2019-09-11] MEDS: AZITHROMYCIN 250 MG TABLET PO SCH (07:56)
[2019-09-11] MEDS: POTASSIUM CHLORIDE 20 MEQ TAB.ER.PRT PO SCH (07:56)
[2019-09-11] MEDS: MULTIVITAMIN 1 TABLET PO SCH (07:56)
[2019-09-11] MEDS: FUROSEMIDE 40 MG TABLET PO SCH (07:56)
[2019-09-11] MEDS: VERAPAMIL ER 240MG TABLET.ER PO SCH (07:56)
[2019-09-11] MEDS ORDERED: AZIT250T89 PO (08:43)
[2019-09-11] MEDS ORDERED: PRED20TA PO (08:43)
[2019-09-11] MEDS: ALBUTEROL/IPRATROPIUM 2.5MG/0.5MG, 3 ML NPPB SCH ×2 (08:55→09:00)
[2019-09-11] MEDS: BUDESONIDE 0.5 MG/2 ML INHA NPPB SCH (08:55)
== END 2019-09-11 12:28 | disposition home or self-care (01) ==
LOC: ED 07:04 → INTOOBSV 08:37 → EDIP 08:37 → 3N 13:22 → 4NW 21:46 → DCLOUNGE 09-11 12:24
PROVIDERS: ADMIT Family Medicine; ATTEND Family Medicine
DX: J96.21 Acute and chronic respiratory failure with hypoxia (principal); J44.1 Chronic obstructive pulmonary disease with (acute) exacerbation; C49.A0 Gastrointestinal stromal tumor, unspecified site; D72.829 Elevated white blood cell count, unspecified; I10 Essential (primary) hypertension; I48.91 Unspecified atrial fibrillation; I50.9 Heart failure, unspecified; F17.210 Nicotine dependence, cigarettes, uncomplicated; Z80.3 Family history of malignant neoplasm of breast; Z85.118 Personal history of other malignant neoplasm of bronchus and lung; Z86.711 Personal history of pulmonary embolism; Z79.899 Other long term (current) drug therapy; Z79.51 Long term (current) use of inhaled steroids
CPT/HCPCS: 36415; 71045; 80048; 80053; 83605; 83880; 84145; 84484; 85025; 87040; 87081; 87400; 87880; 93005; 94640; 96365; 96372; 96375; 96376; 97161; 97165; 99291; G0378; J0456; J1650; J1885; J2405; J2930; J7050; J7512; J7613; J7626; 96374

== ENCOUNTER 2019-10-11 07:52 | Emergency (ER) | payer MEDICARE ==
[~2019-10-11] VITALS: Ht 182.9 cm; Wt 127.3 kg
--- NOTE | 2019-10-11 08:09 | NUR ---
pt wheeled into room, Dr Hahn at bedside assessing and discussing plan of care. Pt changed into gown, resting in gurmonroe, denies additional needs, call light within reach, WCTM.
--- NOTE | 2019-10-11 08:10 | NUR ---
Even and unlabored respirations, cough noted, conversing with RN and Dr in full sentences, eyes open
[2019-10-11] MEDS ORDERED: GUAI-110 PO (08:20)
[2019-10-11 08:37] LABS: BASOPHILS # (AUTO) 0.04 x10^3/uL (0-0.1); BASOPHILS % (AUTO) 0 % (0-1); EOSINOPHILS # (AUTO) 0.07 x10^3/uL (0-0.4); EOSINOPHILS % (AUTO) 1 % (1-7); LYMPHOCYTES # (AUTO) 1.07 x10^3/uL (1-3.4); LYMPHOCYTES % (AUTO) 11 % (22-44); MD NO; MEAN CORPUSCULAR HEMOGLOBIN 31.7 pg (27.5-34.5); MEAN CORPUSCULAR HGB CONC 32.8 g/dL (33.2-36.2); MEAN CORPUSCULAR VOLUME 96.5 fL (81-97); MEAN PLATELET VOLUME 7.9 fL (7.4-10.4); MONOCYTES % (AUTO) 5 % (2-9); NEUTROPHILS # (AUTO) 7.96 x10^3/uL (1.8-6.8); NEUTROPHILS % (AUTO) 83 % (42-75); PLATELET COUNT 243 x10^3/uL (130-400); RED BLOOD COUNT 4.49 x10^6/uL (4.38-5.82); RED CELL DISTRIBUTION WIDTH 14.4 % (9.4-14.8)
[2019-10-11 08:48] LABS: ALANINE AMINOTRANSFERASE 29 U/L (12-78); ALBUMIN 3.4 g/dL (3.4-5.0); ANION GAP 3 mmol/L (5-15); CALCIUM 8.2 mg/dL (8.5-10.1); CHLORIDE 102 mmol/L (98-107); CREATININE 0.71 mg/dL (0.7-1.3)
[2019-10-11 08:50] LABS: ALKALINE PHOSPHATASE 117 U/L (45-117); BILIRUBIN,TOTAL 0.3 mg/dL (0.2-1.0); TOTAL PROTEIN 6.9 g/dL (6.4-8.2)
--- NOTE | 2019-10-11 09:09 | NUR ---
pt sitting up in gurgerry, watching television, conversing with RN in complete sentences, denies additional needs, call light within reach, NAD. WCTM. waiting on D-dimer labs.
--- NOTE | 2019-10-11 09:30 | NUR ---
D-dimer sent to lab. NAD, given ice chips for comfort.
[2019-10-11] MEDS ORDERED: SODIUM CHLORIDE FLUSH 10ML SYR IVF ONE (10:00)
--- NOTE | 2019-10-11 10:01 | NUR ---
pt to CT via gurney, even and unlabored respirations, denies additional needs, NAD, eyes open.
--- NOTE | 2019-10-11 10:13 | NUR ---
pt back from CT, resting in room, on gurney, denies additional needs, watching television, waiting for CT read, NAD, even and unlabored respirations, WCTM.
[2019-10-11] MEDS ORDERED: OMNIPAQUE 350 MG/ML, 100ML BOTTLE ONE (10:37)
[2019-10-11 11:04] VITALS: BP 149/64
== END 2019-10-11 11:07 | disposition home or self-care (01) ==
LOC: ED 08:10
DX: J06.9 Acute upper respiratory infection, unspecified (principal); C34.90 Malignant neoplasm of unspecified part of unspecified bronchus or lung; I11.0 Hypertensive heart disease with heart failure; I50.9 Heart failure, unspecified; J43.9 Emphysema, unspecified; I48.91 Unspecified atrial fibrillation; I47.1 Supraventricular tachycardia; I45.10 Unspecified right bundle-branch block; Z86.711 Personal history of pulmonary embolism; Z90.2 Acquired absence of lung [part of]
CPT/HCPCS: 36415; 71045; 71275; 80053; 85025; 85379; 93005; 99285; Q9967

== ENCOUNTER → 2019-12-28 | Outpatient (CLI) | payer MEDICARE ==
[~2019-12-28] MED LIST changes: +GUAI-110 PO; +OMNIPAQUE 350 MG/ML, 100ML BOTTLE ONE
== END | disposition home or self-care (01) ==
LOC: CFH 09:26
PROVIDERS: ATTEND Internal Medicine Hematology & Oncology
DX: C49.A0 Gastrointestinal stromal tumor, unspecified site (principal); K76.0 Fatty (change of) liver, not elsewhere classified; N28.1 Cyst of kidney, acquired; I70.0 Atherosclerosis of aorta; J98.11 Atelectasis; R19.09 Other intra-abdominal and pelvic swelling, mass and lump
CPT/HCPCS: 74177; Q9967

== ENCOUNTER 2020-04-06 19:22 | Inpatient (IN) | payer MEDICARE ==
[~2020-04-06] VITALS: Ht 182.9 cm; Wt 139.2 kg
[~2020-04-06 19:22] MED LIST changes: +DILT120C11 PO; -OMNIPAQUE 350 MG/ML, 100ML BOTTLE ONE; -OXYC-432 PO; +OXYC1TAB18 PO; -PANT20TA3 PO; +PANT20TA4 PO; -PANT40TA5 PO; +PANT40TA6 PO
--- NOTE | 2020-04-06 19:50 | NUR ---
60 YO MALE CC OF SOB X 3 DAYS REQUIRING AN INCREASE OF HOME O2 FROM 2L TO 3L. PT SPEAKING FEW WORDS AT TIME, SITTING UP IN GURNEY. 2+ PITTING EDEMA IN BILAT LEGS AND FEET, NO WEEPING NOTED.
[2020-04-06] MEDS ORDERED: ALBUTEROL/IPRATROPIUM 2.5MG/0.5MG, 3 ML ONE ×2 (19:51→21:03)
--- NOTE | 2020-04-06 19:55 | NUR ---
PT STARTED ON DUONEB TREATMENT. LUNG SOUNDS DIMINSHED IN ALL LUNG OLMOS ANT/POST.
[2020-04-06] MEDS ORDERED: SODIUM CHLORIDE FLUSH 10ML SYR IVF ONE (20:00)
[2020-04-06] MEDS ORDERED: FUROSEMIDE 40 MG/4 ML IV ONE (20:00)
[2020-04-06] MEDS: ALBUTEROL/IPRATROPIUM 2.5MG/0.5MG, 3 ML NPPB SCH ×2 (20:05→21:06)
[2020-04-06 20:18] LABS: BASOPHILS % (AUTO) 0 % (0-1); EOSINOPHILS % (AUTO) 2 % (1-7); LYMPHOCYTES % (AUTO) 13 % (22-44); MEAN CORPUSCULAR HEMOGLOBIN 30.9 pg (27.5-34.5); MEAN CORPUSCULAR HGB CONC 32.5 g/dL (33.2-36.2); MEAN PLATELET VOLUME 8.1 fL (7.4-10.4); MONOCYTES % (AUTO) 9 % (2-9); NEUTROPHILS % (AUTO) 76 % (42-75); PLATELET COUNT 258 x10^3/uL (130-400); RED BLOOD COUNT 4.37 x10^6/uL (4.38-5.82); RED CELL DISTRIBUTION WIDTH 14.6 % (9.4-14.8)
[2020-04-06 20:28] LABS: ALANINE AMINOTRANSFERASE 34 U/L (12-78); ALBUMIN 3.2 g/dL (3.4-5.0); ANION GAP 2 mmol/L (5-15); CALCIUM 8.6 mg/dL (8.5-10.1); CHLORIDE 102 mmol/L (98-107); CREATININE 0.84 mg/dL (0.7-1.3)
[2020-04-06] MEDS ORDERED: DILT240C77 PO (20:30)
[2020-04-06] MEDS ORDERED: FLUT1BLS3 IH (20:30)
[2020-04-06] MEDS ORDERED: LOSA100T14 PO (20:30)
[2020-04-06 20:32] LABS: ALKALINE PHOSPHATASE 122 U/L (45-117); BILIRUBIN,TOTAL 0.2 mg/dL (0.2-1.0); MD NO; TOTAL PROTEIN 6.5 g/dL (6.4-8.2); TROPONIN I < 0.015 ng/mL (0.000-0.045)
[2020-04-06] MEDS ORDERED: AZITHROMYCIN 500 MG in SODIUM CHLORIDE 0.9% 250 ML IV ONE (21:00)
[2020-04-06] MEDS ORDERED: PIPERACILLIN/TAZO/PMX 3.375GM 50 ML IV ONE (21:00)
--- NOTE | 2020-04-06 21:00 | NUR ---
ERP NOTIFIED PT STATES HE TOOK 80 MG LASIK TODAY, ERP SAID HE WOULD DC LASIK ORDER.
[2020-04-06] MEDS ORDERED: PIPERACILLIN/TAZO/PMX 3.375GM 50 ML ONE (21:02)
--- NOTE | 2020-04-06 21:14 | NUR ---
PT RESTING ON GURNEY, WATCHING TV. STATES BREATHING IS "A LITTLE BIT BUT NOT MUCH". WAITING FOR BED
[2020-04-06 21:53] LABS: MICROSCOPIC NOT IND
--- NOTE | 2020-04-06 22:25 | NUR ---
REPORT GIVEN TO KEYONNA REYES
[2020-04-06] MEDS ORDERED: ENOXAPARIN 40 MG/0.4 ML SQ SCH (22:30)
[2020-04-06] MEDS ORDERED: ONDANSETRON ODT 4 MG PO PRN (22:30)
[2020-04-06] MEDS ORDERED: ENALAPRILAT 1.25 MG/ML, 2ML IVPush PRN (22:30)
[2020-04-06] MEDS ORDERED: POLYETHYLENE GLYCOL 17 GM PACKET PO PRN (22:30)
[2020-04-06] MEDS ORDERED: ALBUTEROL SULFATE 2.5MG/0.5ML NPPB PRN (22:30)
[2020-04-06] MEDS ORDERED: ACETAMINOPHEN 325 MG TABLET PO PRN (22:30)
[2020-04-06 22:51] VITALS: BP 135/70
[2020-04-06] MEDS ORDERED: ALBUTEROL/IPRATROPIUM 2.5MG/0.5MG, 3 ML NPPB SCH (23:00)
[2020-04-06] MEDS: DILTIAZEM 120 MG CAP.ER.12H PO SCH (23:00)
[2020-04-07] MEDS: ZOLPIDEM 5MG TABLET PO PRN ×2 (00:03→22:48)
[2020-04-07] MEDS ORDERED: ALBUTEROL-IPRATROPIUM MDI INH INH PRN (01:00)
[2020-04-07] MEDS ORDERED: IBUPROFEN 200 MG TABLET PO PRN (03:00)
[2020-04-07] MEDS: PIPERACILLIN/TAZO/PMX 4.5GM 100 ML IV SCH ×4 (03:05→21:20)
[2020-04-07 03:06] VITALS: BP 144/69
[2020-04-07 04:51] LABS: ABSOLUTE RETICS # 0.055 x10^6/uL (0.5-1.5); RED BLOOD COUNT 4.19 x10^6/uL (4.38-5.82); RETICULOCYTE COUNT % 1.31 % (0.5-1.5)
[2020-04-07 05:01] LABS: BASOPHILS % (AUTO) 0 % (0-1); EOSINOPHILS % (AUTO) 0 % (1-7); LYMPHOCYTES % (AUTO) 3 % (22-44); MEAN CORPUSCULAR HEMOGLOBIN 30.8 pg (27.5-34.5); MEAN CORPUSCULAR HGB CONC 31.9 g/dL (33.2-36.2); MEAN PLATELET VOLUME 8.7 fL (7.4-10.4); MONOCYTES % (AUTO) 1 % (2-9); NEUTROPHILS % (AUTO) 95 % (42-75); PLATELET COUNT 246 x10^3/uL (130-400); RED BLOOD COUNT 4.26 x10^6/uL (4.38-5.82); RED CELL DISTRIBUTION WIDTH 14.4 % (9.4-14.8)
[2020-04-07 05:02] LABS: ANION GAP 3 mmol/L (5-15); CALCIUM 8.5 mg/dL (8.5-10.1); CHLORIDE 101 mmol/L (98-107)
[2020-04-07 05:03] LABS: CREATININE 0.74 mg/dL (0.7-1.3)
[2020-04-07] MEDS ORDERED: ALBUTEROL-IPRATROPIUM MDI INH INH SCH ×2 (06:00→07:00)
[2020-04-07] MEDS: ALBUTEROL-IPRATROPIUM MDI INH INH SCH ×5 (07:00→23:00)
[2020-04-07] MEDS ORDERED: FUROSEMIDE 40 MG/4 ML IV SCH (07:30)
[2020-04-07 08:25] VITALS: BP 173/89
[2020-04-07 08:43] LABS: MD SCAN
[2020-04-07] MEDS: FLUTICASONE FUROATE 100MCG/INH INH SCH (09:00)
[2020-04-07] MEDS ORDERED: FLUTICASONE FUROATE 100MCG/INH INH SCH ×2 (09:00)
[2020-04-07] MEDS: LOSARTAN 100 MG TAB PO SCH (10:29)
[2020-04-07] MEDS: DILTIAZEM 120 MG CAP.ER.12H PO SCH ×2 (10:29→21:20)
[2020-04-07] MEDS: SENNA/DOCUSATE TABLET PO SCH (10:30)
[2020-04-07] MEDS: MULTIVITAMIN 1 TABLET PO SCH (10:30)
[2020-04-07] MEDS: FUROSEMIDE 40 MG TABLET PO SCH ×2 (10:31→17:07)
[2020-04-07] MEDS: POTASSIUM CHLORIDE 20 MEQ TAB.ER.PRT PO SCH (10:31)
[2020-04-07 13:47] VITALS: BP 154/90
[2020-04-07] MEDS: ENOXAPARIN 30 MG/0.3 ML SQ SCH (17:09)
[2020-04-07] MEDS: OXYcodone/APAP 5/325MG TABLET PO PRN (17:41)
[2020-04-07 19:17] VITALS: BP 170/72
[2020-04-07] MEDS: AZITHROMYCIN 250 MG TABLET PO SCH (20:00)
[2020-04-07] MEDS ORDERED: IMATINIB 400 MG TABLET PO SCH (21:00)
[2020-04-07] MEDS: MONTELUKAST 10 MG TABLET PO SCH (21:20)
[2020-04-08] MEDS: OXYcodone/APAP 5/325MG TABLET PO PRN ×3 (01:55→23:01)
[2020-04-08 02:06] VITALS: BP 130/76
[2020-04-08] MEDS: PIPERACILLIN/TAZO/PMX 4.5GM 100 ML IV SCH ×4 (03:12→21:20)
[2020-04-08 05:11] LABS: BASOPHILS % (AUTO) 1 % (0-1); EOSINOPHILS % (AUTO) 1 % (1-7); LYMPHOCYTES % (AUTO) 14 % (22-44); MEAN CORPUSCULAR HEMOGLOBIN 31.2 pg (27.5-34.5); MEAN CORPUSCULAR HGB CONC 32.2 g/dL (33.2-36.2); MEAN PLATELET VOLUME 8.3 fL (7.4-10.4); MONOCYTES % (AUTO) 9 % (2-9); NEUTROPHILS % (AUTO) 77 % (42-75); PLATELET COUNT 250 x10^3/uL (130-400); RED BLOOD COUNT 4.19 x10^6/uL (4.38-5.82); RED CELL DISTRIBUTION WIDTH 14.5 % (9.4-14.8)
[2020-04-08 05:29] LABS: MD NO
[2020-04-08] MEDS: ENOXAPARIN 30 MG/0.3 ML SQ SCH ×2 (05:51→17:11)
[2020-04-08] MEDS: ALBUTEROL-IPRATROPIUM MDI INH INH SCH ×5 (07:00→20:18)
[2020-04-08 08:26] VITALS: BP 143/72
[2020-04-08] MEDS: FLUTICASONE FUROATE 100MCG/INH INH SCH (09:00)
[2020-04-08] MEDS: FUROSEMIDE 40 MG TABLET PO SCH ×2 (09:12→17:11)
[2020-04-08] MEDS: MULTIVITAMIN 1 TABLET PO SCH (09:12)
[2020-04-08] MEDS: AZITHROMYCIN 250 MG TABLET PO SCH (09:12)
[2020-04-08] MEDS: LOSARTAN 100 MG TAB PO SCH (09:12)
[2020-04-08] MEDS: SENNA/DOCUSATE TABLET PO SCH (09:12)
[2020-04-08] MEDS: POTASSIUM CHLORIDE 20 MEQ TAB.ER.PRT PO SCH (09:12)
[2020-04-08] MEDS: DILTIAZEM 120 MG CAP.ER.12H PO SCH ×2 (09:13→21:20)
[2020-04-08 15:34] VITALS: BP 142/70
[2020-04-08 19:12] VITALS: BP 152/67
[2020-04-08] MEDS: MONTELUKAST 10 MG TABLET PO SCH (21:20)
[2020-04-08] MEDS: ZOLPIDEM 5MG TABLET PO PRN (23:01)
[2020-04-09 03:00] VITALS: BP 149/65
[2020-04-09] MEDS: PIPERACILLIN/TAZO/PMX 4.5GM 100 ML IV SCH ×2 (03:10→08:46)
[2020-04-09] MEDS: ENOXAPARIN 30 MG/0.3 ML SQ SCH (06:33)
[2020-04-09] MEDS: OXYcodone/APAP 5/325MG TABLET PO PRN (06:33)
[2020-04-09 06:48] VITALS: BP 150/78
[2020-04-09] MEDS: FLUTICASONE FUROATE 100MCG/INH INH SCH (07:15)
[2020-04-09] MEDS: ALBUTEROL-IPRATROPIUM MDI INH INH SCH ×2 (07:15→11:00)
[2020-04-09] MEDS: POTASSIUM CHLORIDE 20 MEQ TAB.ER.PRT PO SCH (08:44)
[2020-04-09] MEDS: FUROSEMIDE 40 MG TABLET PO SCH (08:45)
[2020-04-09] MEDS: MULTIVITAMIN 1 TABLET PO SCH (08:46)
[2020-04-09] MEDS: DILTIAZEM 120 MG CAP.ER.12H PO SCH (08:46)
[2020-04-09] MEDS: LOSARTAN 100 MG TAB PO SCH (08:46)
[2020-04-09] MEDS: AZITHROMYCIN 250 MG TABLET PO SCH (08:47)
[2020-04-09] MEDS: SENNA/DOCUSATE TABLET PO SCH (08:47)
[2020-04-09] MEDS ORDERED: CEFD300C37 PO (11:40)
[2020-04-09] MEDS ORDERED: AZIT250T89 PO (11:40)
[2020-04-09] MEDS ORDERED: CEFTRIAXONE PMX 1GM/50ML 50 ML IV SCH (12:00)
[2020-04-09 12:41] VITALS: BP 161/82
== END 2020-04-09 14:48 | disposition home or self-care (01) | DRG 193 ==
LOC: ED 21:01 → EDIP 21:08 → 4NW 22:34
PROVIDERS: ADMIT Family Medicine; ATTEND Family Medicine
DX: J18.9 Pneumonia, unspecified organism (principal); J96.21 Acute and chronic respiratory failure with hypoxia; J44.1 Chronic obstructive pulmonary disease with (acute) exacerbation; J44.0 Chronic obstructive pulmonary disease with (acute) lower respiratory infection; I11.0 Hypertensive heart disease with heart failure; D64.9 Anemia, unspecified; E87.70 Fluid overload, unspecified; K80.20 Calculus of gallbladder without cholecystitis without obstruction; I48.0 Paroxysmal atrial fibrillation; Y95 Nosocomial condition; Z85.118 Personal history of other malignant neoplasm of bronchus and lung; Z90.49 Acquired absence of other specified parts of digestive tract; Z87.891 Personal history of nicotine dependence; Z82.49 Family history of ischemic heart disease and other diseases of the circulatory system; Z90.2 Acquired absence of lung [part of]
CPT/HCPCS: 36415; 71045; 71046; 76700; 80048; 80053; 81003; 83605; 83735; 83880; 84145; 84484; 85025; 85045; 87040; 87070; 87205; 93005; 93970; 94640; G0378; J0456; J0696; J1650; J2543; J7050; J7512

== ENCOUNTER → 2020-04-28 | Outpatient (CLI) | payer MEDICARE ==
[~2020-04-28] MED LIST changes: +CEFD300C37 PO; +DILT240C77 PO; +LOSA100T14 PO; +OMNIPAQUE 350 MG/ML, 100ML BOTTLE ONE
== END | disposition home or self-care (01) ==
LOC: CFH 09:22
PROVIDERS: ATTEND Internal Medicine Hematology & Oncology
DX: C49.A0 Gastrointestinal stromal tumor, unspecified site (principal); K76.0 Fatty (change of) liver, not elsewhere classified; J98.11 Atelectasis; N28.1 Cyst of kidney, acquired; I70.0 Atherosclerosis of aorta; J98.4 Other disorders of lung; R19.09 Other intra-abdominal and pelvic swelling, mass and lump
CPT/HCPCS: 74177; Q9967

== ENCOUNTER 2020-07-03 16:23 | Emergency (ER) | payer MEDICARE, OTHER ==
[~2020-07-03] VITALS: Ht 190.5 cm; Wt 138.0 kg
[~2020-07-03 16:23] MED LIST changes: -OMNIPAQUE 350 MG/ML, 100ML BOTTLE ONE
--- NOTE | 2020-07-03 18:33 | NUR ---
parts sales manager: pt from lobby to room 27
--- NOTE | 2020-07-03 18:45 | NUR ---
PATIENT WALKED BACK FROM TRIAGE WITH CHIEF C/O SOB X2 DAYS. PATIENT STATES HE HAS COPD, AND HAS BEEN MORE SOB THAN USUAL, NORMALLY USES 2 LPM NC AT HOME, PATIENT REPORTS NEEDING TO USE MORE OXYGEN IN THE LAST TWO DAYS. PATIENT REPORTS COUGH, DENIES FEVER, DENIES N/V/D. NADN, O2 SATURATION 99% ON 2 LPM NC, CALL LIGHT WITHIN REACH.
--- NOTE | 2020-07-03 18:51 | NUR ---
ERMD AT BEDSIDE FOR EVALUATION.
[2020-07-03] MEDS ORDERED: CEFDINIR 300 MG CAPSULE PO/NG ONE (19:00)
[2020-07-03] MEDS ORDERED: ALBUTEROL SULFATE 2.5 MG/3 ML NPPB ONE (19:00)
[2020-07-03] MEDS ORDERED: AZITHROMYCIN 500 MG TABLET PO/NG ONE (19:00)
[2020-07-03] MEDS ORDERED: AZITHROMYCIN 250 MG TABLET ONE (19:22)
[2020-07-03] MEDS ORDERED: ALBUTEROL SULFATE 2.5 MG/3 ML ONE (19:22)
[2020-07-03] MEDS ORDERED: CEFDINIR 300 MG CAPSULE ONE (19:22)
[2020-07-03 19:24] VITALS: BP 151/78
--- NOTE | 2020-07-03 19:31 | NUR ---
PATIENT MEDICATED PER eMAR, BREATHING TREATMENT STARTED.
--- NOTE | 2020-07-03 19:52 | NUR ---
PATIENT TOLERATED BREATHING TREATMENT WELL, SITTING IN GURNEY WATCHING TV, VSS, CALL LIGHT WITHIN REACH.
--- NOTE | 2020-07-03 20:15 | NUR ---
First contact with pt for d/c. Pt placed in wc with o2 to lobby. Dc instruct and rx given. Pt being picked up by friend bringing his o2 tank. Pt verbalizes understanding of instruct and f/u. to return to er if worse or concerns. VSS, speaks full sentences.
== END 2020-07-03 20:17 | disposition home or self-care (01) ==
LOC: ED 17:30
DX: J44.1 Chronic obstructive pulmonary disease with (acute) exacerbation (principal); Z20.828 Contact with and (suspected) exposure to other viral communicable diseases; J15.9 Unspecified bacterial pneumonia; R06.02 Shortness of breath; R05 Cough; M79.89 Other specified soft tissue disorders; I50.9 Heart failure, unspecified; I48.91 Unspecified atrial fibrillation; Z87.891 Personal history of nicotine dependence
CPT/HCPCS: 71046; 87635; 93005; 94640; 99285; J7512; J7613

== ENCOUNTER 2020-08-14 21:24 | Inpatient (IN) | payer MEDICARE ==
[~2020-08-14] VITALS: Ht 182.9 cm; Wt 137.8 kg
[~2020-08-14 21:24] MED LIST changes: -CIPR500T3 PO; +CIPR500T4 PO; -CYCL-259 PO; +CYCL10TA2 PO; +HYDR-1067 PO; -HYDR-3240 PO; -OXYC5TAB3 PO; +OXYC5TAB98 PO
--- NOTE | 2020-08-14 22:17 | NUR ---
Pt on monitor, sinus no ectopy. On o2, cont pulse ox. WIll continue to monitor. pt speaks full sentences has some redness to rle.
[2020-08-14 22:44] LABS: BASOPHILS % (AUTO) 1 % (0-1); EOSINOPHILS % (AUTO) 1 % (1-7); LYMPHOCYTES % (AUTO) 11 % (22-44); MEAN CORPUSCULAR HEMOGLOBIN 32.1 pg (27.5-34.5); MEAN CORPUSCULAR HGB CONC 34.1 g/dL (33.2-36.2); MEAN PLATELET VOLUME 7.4 fL (7.4-10.4); MONOCYTES % (AUTO) 10 % (2-9); NEUTROPHILS % (AUTO) 77 % (42-75); PLATELET COUNT 294 x10^3/uL (130-400); RED BLOOD COUNT 3.81 x10^6/uL (4.38-5.82); RED CELL DISTRIBUTION WIDTH 14.8 % (9.4-14.8)
[2020-08-14 22:49] LABS: MD NO
--- NOTE | 2020-08-14 22:50 | NUR ---
labs sent, PCXR done. Pt speaks full sentences, nsr no ectopy. on o2.
[2020-08-14 22:55] LABS: ALANINE AMINOTRANSFERASE 31 U/L (12-78); ALBUMIN 3.6 g/dL (3.4-5.0); ANION GAP 6 mmol/L (5-15); CHLORIDE 92 mmol/L (98-107); CREATININE 0.93 mg/dL (0.7-1.3)
[2020-08-14 23:00] LABS: ALKALINE PHOSPHATASE 97 U/L (45-117); BILIRUBIN,TOTAL 0.2 mg/dL (0.2-1.0); TOTAL PROTEIN 6.9 g/dL (6.4-8.2); TROPONIN I < 0.015 ng/mL (0.000-0.045)
--- NOTE | 2020-08-14 23:22 | NUR ---
Duplex ultrasound completed. Pt pending re-eval by erp. No change in assessment.
--- NOTE | 2020-08-15 00:11 | NUR ---
To CT for CTA.
[2020-08-15] MEDS ORDERED: OMNIPAQUE 350 MG/ML, 75ML BOTTLE ONE (00:20)
--- NOTE | 2020-08-15 00:20 | NUR ---
Back from CTA. Reconnected to monitor. Remains stable. nsr no ectopy will continue to monitor.
--- NOTE | 2020-08-15 00:43 | NUR ---
o2 down to 1.5 liters to maintain sat 91-94%. Hx copd, uses home o2.
--- NOTE | 2020-08-15 01:03 | NUR ---
BEDSIDE REPORT RECEIVED FROM MILTON REYES
--- NOTE | 2020-08-15 01:05 | NUR ---
PT SITTING UPRIGHT ON GURNEY, RESTING COMFORTABLY, ABLE TO DOZE OFF. PT DENIES ANY NEEDS AT THIS TIME. CALL LIGHT AND BELONGINGS WITHIN REACH.
--- NOTE | 2020-08-15 01:15 | NUR ---
ERP AT BEDSIDE
[2020-08-15] MEDS ORDERED: CEFTRIAXONE PMX 1GM/50ML 50 ML IV ONE (01:30)
[2020-08-15] MEDS ORDERED: AZITHROMYCIN 500 MG in SODIUM CHLORIDE 0.9% 250 ML IV ONE (01:30)
[2020-08-15] MEDS ORDERED: FUROSEMIDE 40 MG/4 ML IV ONE (01:30)
[2020-08-15] MEDS ORDERED: CEFTRIAXONE PMX 1GM/50ML 50 ML ONE (01:43)
[2020-08-15] MEDS ORDERED: FUROSEMIDE 40 MG/4 ML ONE (01:43)
--- NOTE | 2020-08-15 01:55 | NUR ---
PT MEDICATED PER EMAR. ABX STARTED, BLOOD CULTURES DRAWN X2 PRIOR TO ADMIN. PT PROVIDED URINAL PER REQUEST. PT DENIES ANY ADDITIONAL NEEDS AT THIS TIME. CALL LIGHT AND PERSONAL BELONGINGS WITHIN REACH. NCIKIE SWAB WALKED TO LAB
[2020-08-15] MEDS: FUROSEMIDE 20 MG/2 ML IV SCH ×2 (02:16→15:28)
[2020-08-15] MEDS ORDERED: ENOXAPARIN 40 MG/0.4 ML ONE (02:18)
[2020-08-15] MEDS: ENOXAPARIN 40 MG/0.4 ML SQ SCH (02:22)
[2020-08-15] MEDS ORDERED: FUROSEMIDE 20 MG/2 ML IV SCH (02:30)
[2020-08-15] MEDS ORDERED: DILTIAZEM 5 MG/ML, 5ML IVPush PRN (02:30)
[2020-08-15] MEDS ORDERED: POTASSIUM CHLORIDE 20 MEQ TAB.ER.PRT PO ONE (02:30)
[2020-08-15] MEDS ORDERED: DOCUSATE 100 MG CAPSULE PO PRN (02:30)
[2020-08-15] MEDS ORDERED: ACETAMINOPHEN 325 MG TABLET PO PRN (02:30)
[2020-08-15] MEDS ORDERED: PHARMACY MAY ADJ FOR RENAL FX MC PRN (02:30)
[2020-08-15] MEDS ORDERED: ONDANSETRON ODT 4 MG PO PRN (02:30)
[2020-08-15] MEDS ORDERED: LABETALOL 5MG/ML, 20ML IVPush PRN (02:30)
[2020-08-15] MEDS ORDERED: ALBUTEROL SULFATE 2.5 MG/3 ML NPPB PRN (02:30)
--- NOTE | 2020-08-15 02:38 | NUR ---
HOSPITAL BED REQUESTED
[2020-08-15] MEDS ORDERED: POTASSIUM CHLORIDE 20 MEQ TAB.ER.PRT ONE (02:43)
--- NOTE | 2020-08-15 03:05 | NUR ---
Supplier Engineer: Called Dr. Vickers from [facility] to clarify admit order between COVID monitored vs. COVID Medical. Per Dr. Vickers, monitored would be preferred. Order changed to reflect conversation with .
--- NOTE | 2020-08-15 03:18 | NUR ---
PT MOVED FROM ED GURNEY TO HOSPITAL BED, TOLERATED WELL. PT USING URINAL. NO ADDITIONAL NEEDS AT THIS TIME. CALL LIGHT WITHIN REACH.
--- NOTE | 2020-08-15 04:48 | NUR ---
RT AT BEDSIDE
--- NOTE | 2020-08-15 05:04 | NUR ---
PT RESTING COMFORTABLY ON HOSPITAL BED WITH EYES CLOSED. NADN, VSS. PT DENIES ANY NEEDS AT THIS TIME. CALL LIGHT AND BELONGINGS WITHIN REACH. ISOLATION PRECAUTIONS IN PLACE.
--- NOTE | 2020-08-15 06:53 | NUR ---
REPORT TO MARIFER REYES
--- NOTE | 2020-08-15 07:06 | NUR ---
SBAR HAND-OFF REPORT RECEIVED FROM AMY SAMUEL. ASSUMING CARE OF PATIENT.
[2020-08-15 08:04] LABS: ANION GAP 4 mmol/L (5-15); CALCIUM 8.7 mg/dL (8.5-10.1); CHLORIDE 94 mmol/L (98-107); CREATININE 0.83 mg/dL (0.7-1.3)
[2020-08-15 08:07] LABS: BASOPHILS % (AUTO) 1 % (0-1); EOSINOPHILS % (AUTO) 1 % (1-7); LYMPHOCYTES % (AUTO) 12 % (22-44); MEAN CORPUSCULAR HEMOGLOBIN 31.8 pg (27.5-34.5); MEAN CORPUSCULAR HGB CONC 33.6 g/dL (33.2-36.2); MEAN PLATELET VOLUME 7.5 fL (7.4-10.4); MONOCYTES % (AUTO) 9 % (2-9); NEUTROPHILS % (AUTO) 78 % (42-75); PLATELET COUNT 283 x10^3/uL (130-400); RED BLOOD COUNT 3.88 x10^6/uL (4.38-5.82); RED CELL DISTRIBUTION WIDTH 14.4 % (9.4-14.8)
[2020-08-15 08:09] LABS: MD NO
[2020-08-15] MEDS: FLUTICASONE/VILANTEROL 200-25MCG/INH INH SCH (09:00)
--- NOTE | 2020-08-15 09:14 | NUR ---
SBAR TELEPHONE HAND-OFF GIVEN TO AMY FISCHER IN ICU. PT READY TO GO TO HOSPITAL ROOM.
[2020-08-15 09:31] VITALS: BP 147/68
[2020-08-15] MEDS: LOSARTAN 100 MG TAB PO SCH (09:39)
[2020-08-15] MEDS: AZITHROMYCIN 500 MG TABLET PO SCH (09:39)
[2020-08-15] MEDS: POTASSIUM CHLORIDE 20 MEQ TAB.ER.PRT PO SCH (09:39)
[2020-08-15] MEDS: MULTIVITAMIN 1 TABLET PO SCH (09:39)
[2020-08-15 10:00] VITALS: BP 129/60
[2020-08-15] MEDS: DILTIAZEM 240 MG CAP.ER.24H PO SCH (10:15)
[2020-08-15 12:01] VITALS: BP 107/53
[2020-08-15 14:00] VITALS: BP 112/44
[2020-08-15 19:38] VITALS: BP 107/64
[2020-08-15] MEDS: MONTELUKAST 10 MG TABLET PO SCH (21:53)
[2020-08-15] MEDS: TRAZODONE 50MG TABLET PO PRN (21:53)
[2020-08-15 23:04] VITALS: BP 125/69
[2020-08-16 05:05] VITALS: BP 103/61
[2020-08-16] MEDS: ENOXAPARIN 40 MG/0.4 ML SQ SCH (05:09)
[2020-08-16] MEDS: FUROSEMIDE 20 MG/2 ML IV SCH (05:09)
[2020-08-16] MEDS ORDERED: FUROSEMIDE 20 MG TABLET ONE (07:45)
[2020-08-16] MEDS: DILTIAZEM 240 MG CAP.ER.24H PO SCH (07:56)
[2020-08-16] MEDS: LOSARTAN 100 MG TAB PO SCH (07:57)
[2020-08-16] MEDS: POTASSIUM CHLORIDE 20 MEQ TAB.ER.PRT PO SCH (07:57)
[2020-08-16] MEDS: AZITHROMYCIN 500 MG TABLET PO SCH (07:57)
[2020-08-16] MEDS: methylPREDNISolone SOD SUCC 40 MG/ML IV SCH ×3 (07:57→19:40)
[2020-08-16] MEDS: MULTIVITAMIN 1 TABLET PO SCH (07:57)
[2020-08-16] MEDS: FUROSEMIDE 40 MG TABLET PO SCH ×2 (07:57→19:40)
[2020-08-16 08:04] VITALS: BP 106/57
[2020-08-16] MEDS: CEFTRIAXONE PMX 1GM/50ML 50 ML IV SCH (08:10)
[2020-08-16 08:56] LABS: RAPID INFLUENZA A Negative (Negative); RAPID INFLUENZA B Negative (Negative)
[2020-08-16] MEDS: FLUTICASONE/VILANTEROL 200-25MCG/INH INH SCH (10:15)
[2020-08-16 14:33] VITALS: BP 102/66
[2020-08-16] MEDS: GUAIFENESIN/DM 200-20MG, 10ML UDC PO PRN (14:35)
[2020-08-16 19:37] VITALS: BP 102/60
[2020-08-16] MEDS: MONTELUKAST 10 MG TABLET PO SCH (19:40)
[2020-08-16 22:00] VITALS: BP 127/72
[2020-08-16] MEDS: TRAZODONE 50MG TABLET PO PRN (22:28)
[2020-08-17] MEDS: methylPREDNISolone SOD SUCC 40 MG/ML IV SCH ×4 (01:31→20:28)
[2020-08-17 01:35] VITALS: BP 119/48
[2020-08-17] MEDS: ENOXAPARIN 40 MG/0.4 ML SQ SCH (04:59)
[2020-08-17 07:27] LABS: ANION GAP 3 mmol/L (5-15); CALCIUM 9.2 mg/dL (8.5-10.1); CHLORIDE 93 mmol/L (98-107); CREATININE 0.85 mg/dL (0.7-1.3)
[2020-08-17] MEDS: FLUTICASONE/VILANTEROL 200-25MCG/INH INH SCH (07:53)
[2020-08-17] MEDS: DILTIAZEM 240 MG CAP.ER.24H PO SCH (08:01)
[2020-08-17] MEDS: MULTIVITAMIN 1 TABLET PO SCH (08:01)
[2020-08-17] MEDS: POTASSIUM CHLORIDE 20 MEQ TAB.ER.PRT PO SCH (08:01)
[2020-08-17] MEDS: FUROSEMIDE 40 MG TABLET PO SCH ×2 (08:01→20:28)
[2020-08-17] MEDS: LOSARTAN 100 MG TAB PO SCH (08:01)
[2020-08-17] MEDS: AZITHROMYCIN 500 MG TABLET PO SCH (08:01)
[2020-08-17 08:06] VITALS: BP 123/80
[2020-08-17] MEDS: CEFTRIAXONE PMX 1GM/50ML 50 ML IV SCH (08:54)
[2020-08-17 15:25] VITALS: BP 133/64
[2020-08-17] MEDS: MONTELUKAST 10 MG TABLET PO SCH (20:27)
[2020-08-17] MEDS: GUAIFENESIN/DM 200-20MG, 10ML UDC PO PRN (20:35)
[2020-08-17 20:38] VITALS: BP 137/72
[2020-08-17] MEDS: TRAZODONE 50MG TABLET PO PRN (22:54)
[2020-08-17 23:50] VITALS: BP 127/67
[2020-08-18] MEDS: methylPREDNISolone SOD SUCC 40 MG/ML IV SCH ×2 (02:13→08:14)
[2020-08-18 03:32] LABS: MEAN CORPUSCULAR HEMOGLOBIN 31.9 pg (27.5-34.5); MEAN CORPUSCULAR HGB CONC 33.4 g/dL (33.2-36.2); MEAN PLATELET VOLUME 7.8 fL (7.4-10.4); PLATELET COUNT 292 x10^3/uL (130-400); RED BLOOD COUNT 3.74 x10^6/uL (4.38-5.82); RED CELL DISTRIBUTION WIDTH 14.3 % (9.4-14.8)
[2020-08-18 03:38] LABS: ANION GAP 4 mmol/L (5-15); CALCIUM 8.6 mg/dL (8.5-10.1); CHLORIDE 92 mmol/L (98-107); CREATININE 0.75 mg/dL (0.7-1.3)
[2020-08-18 03:46] LABS: MD YES
[2020-08-18 03:48] VITALS: BP 138/65
[2020-08-18 04:00] LABS: ANISOCYTOSIS 1+; LYMPH#(MANUAL) 0.68 x10^3/uL (1-3.4); LYMPHS% (MANUAL) 3 % (22-44); MONOS#(MANUAL) 0.45 x10^3/uL (0.3-2.7); MONOS% (MANUAL) 2 % (2-9); SEG#(MANUAL) 21.38 x10^3/uL (1.8-6.8); SEGS% (MANUAL) 95 % (42-75)
[2020-08-18 04:01] LABS: <PLATELET ESTIMATE> ADEQUATE; <PLT MORPHOLOGY> NORMAL PLT MORPH
[2020-08-18] MEDS: ENOXAPARIN 40 MG/0.4 ML SQ SCH (05:40)
[2020-08-18] MEDS: POTASSIUM CHLORIDE 20 MEQ TAB.ER.PRT PO SCH (08:13)
[2020-08-18] MEDS: DILTIAZEM 240 MG CAP.ER.24H PO SCH (08:13)
[2020-08-18 08:14] VITALS: BP 135/68
[2020-08-18] MEDS: AZITHROMYCIN 500 MG TABLET PO SCH (08:14)
[2020-08-18] MEDS: FUROSEMIDE 40 MG TABLET PO SCH (08:14)
[2020-08-18] MEDS: LOSARTAN 100 MG TAB PO SCH (08:14)
[2020-08-18] MEDS: MULTIVITAMIN 1 TABLET PO SCH (08:14)
[2020-08-18] MEDS: FLUTICASONE/VILANTEROL 200-25MCG/INH INH SCH (08:15)
[2020-08-18] MEDS: CEFTRIAXONE PMX 1GM/50ML 50 ML IV SCH (09:06)
[2020-08-18] MEDS ORDERED: PRED20TA PO (10:01)
[2020-08-18] MEDS ORDERED: ENOXAPARIN 30 MG/0.3 ML SQ SCH (17:30)
== END 2020-08-18 11:46 | disposition home or self-care (01) | DRG 189 ==
LOC: ED 08-15 00:19 → EDIP 08-15 02:21 → ICU 08-15 09:27
PROVIDERS: ADMIT Family Medicine; ATTEND Internal Medicine
DX: J96.20 Acute and chronic respiratory failure, unspecified whether with hypoxia or hypercapnia (principal); I50.32 Chronic diastolic (congestive) heart failure; Z68.41 Body mass index [BMI] 40.0-44.9, adult; J44.1 Chronic obstructive pulmonary disease with (acute) exacerbation; E66.01 Morbid (severe) obesity due to excess calories; I11.0 Hypertensive heart disease with heart failure; D64.9 Anemia, unspecified; D48.1 Neoplasm of uncertain behavior of connective and other soft tissue; D72.829 Elevated white blood cell count, unspecified; I50.82 Biventricular heart failure; I27.29 Other secondary pulmonary hypertension; I48.91 Unspecified atrial fibrillation; K76.0 Fatty (change of) liver, not elsewhere classified; K80.20 Calculus of gallbladder without cholecystitis without obstruction; Z20.822 Contact with and (suspected) exposure to COVID-19; Z80.3 Family history of malignant neoplasm of breast; Z85.118 Personal history of other malignant neoplasm of bronchus and lung; Z86.711 Personal history of pulmonary embolism; Z87.891 Personal history of nicotine dependence; Z90.49 Acquired absence of other specified parts of digestive tract
CPT/HCPCS: 36415; 71045; 71275; 80048; 80053; 83880; 84484; 85025; 85379; 87040; 87081; 87400; 93005; 94640; 99285; G0378; J0456; J0696; J1650; J1940; Q9967; J2920; J7050; J7512; U0003

== ENCOUNTER 2020-10-04 03:02 | Observation (INO) | payer MEDICARE ==
[~2020-10-04] VITALS: Ht 182.9 cm; Wt 131.3 kg
[~2020-10-04 03:02] MED LIST changes: +METO2.5T PO; +SPIR25TA PO; +TRAZ50TA66 PO
--- NOTE | 2020-10-04 03:25 | NUR ---
pt came into ed today for sob. was recently dc'd from here, states he woke of extremely short of breath, checked his O2 and found he was sitting in the 60s, pt increased his home O2 from his usual 2L up to 10L to get sats back up. pt changed into gown, resting on gurney, nad, placed on spo2/bp/ecg monitoring, provided warm blankets for comfort, call light on lap, bed in lowest. wctm.
[2020-10-04] MEDS ORDERED: OMNIPAQUE 350 MG/ML, 100ML BOTTLE ONE (04:00)
[2020-10-04 04:06] LABS: BASOPHILS % (AUTO) 1 % (0-1); EOSINOPHILS % (AUTO) 1 % (1-7); LYMPHOCYTES % (AUTO) 10 % (22-44); MEAN CORPUSCULAR HEMOGLOBIN 31.9 pg (27.5-34.5); MEAN CORPUSCULAR HGB CONC 32.8 g/dL (33.2-36.2); MEAN PLATELET VOLUME 7.2 fL (7.4-10.4); MONOCYTES % (AUTO) 7 % (2-9); NEUTROPHILS % (AUTO) 82 % (42-75); PLATELET COUNT 274 x10^3/uL (130-400); RED BLOOD COUNT 2.97 x10^6/uL (4.38-5.82); RED CELL DISTRIBUTION WIDTH 15.7 % (9.4-14.8)
[2020-10-04 04:16] LABS: ALBUMIN 3.3 g/dL (3.4-5.0); ANION GAP 3 mmol/L (5-15); CALCIUM 8.6 mg/dL (8.5-10.1); CHLORIDE 98 mmol/L (98-107)
[2020-10-04 04:22] LABS: ALANINE AMINOTRANSFERASE 33 U/L (12-78); ALKALINE PHOSPHATASE 77 U/L (45-117); BILIRUBIN,TOTAL 0.2 mg/dL (0.2-1.0); CREATININE 0.96 mg/dL (0.7-1.3); TOTAL PROTEIN 6.4 g/dL (6.4-8.2); TROPONIN I < 0.015 ng/mL (0.000-0.045)
[2020-10-04 04:23] LABS: MD NO
--- NOTE | 2020-10-04 04:24 | NUR ---
PT RESTING ON GURNEY, NAD, PROVIDED WATER FOR COMFORT, DENIES ADDITIONAL NEEDS AT THIS TIME. VSS. MED REC COMPLETED TO THE BEST OF PTS ABILITY OFF OF PREVIOUS VISIT. WCTM.
--- NOTE | 2020-10-04 05:30 | NUR ---
PT PROVIDED URINAL TO USE RESTROOM, NAD, BACK TO RESTING ON GURNEY, APPEARS COMFORTABLE, AWAITING CTA RESULTS. WCTM.
--- NOTE | 2020-10-04 05:57 | NUR ---
URINAL EMPTIED AT THIS TIME. PT RESTING COMFORTABLE, EYES CLOSED, EVEN AND UNLABORED RESPIRATIONS NOTED, BED IN LOWEST, RAILS ENGAGED, CALL LIGHT ON LAP, WCTM.
--- NOTE | 2020-10-04 07:08 | NUR ---
THIS RN RECEIVED BEDSIDE REPORT FROM [facility] RN, LIBBY MCKINLEY NADN, ATTACHED TO MONITORS SITTING UP IN BED. PT TO BE ADMITTED. JEANCARLOS CALLING REPORT.
--- NOTE | 2020-10-04 07:10 | NUR ---
BEDSIDE REPORT TO ELLA REYES, PT CARE TRANSFERRED AT THIS TIME.
--- NOTE | 2020-10-04 07:11 | NUR ---
REPORT CALLED TO HENNA REYES.
[2020-10-04] MEDS ORDERED: LABETALOL 5MG/ML, 20ML IVPush PRN (07:30)
[2020-10-04 08:00] VITALS: BP 143/82
[2020-10-04] MEDS ORDERED: TRAZODONE 50MG TABLET PO PRN (08:00)
[2020-10-04] MEDS ORDERED: ALBUTEROL HFA 90 MCG/SPRAY INH PRN (08:00)
[2020-10-04] MEDS: SUCRALFATE 1 GM TABLET PO SCH ×3 (08:00→17:35)
[2020-10-04] MEDS: POTASSIUM CHLORIDE 20 MEQ TAB.ER.PRT PO SCH (09:09)
[2020-10-04] MEDS: LOSARTAN 100 MG TAB PO SCH (09:10)
[2020-10-04] MEDS: DILTIAZEM 240 MG CAP.ER.24H PO SCH (09:12)
[2020-10-04] MEDS: MULTIVITAMIN 1 TABLET PO SCH (09:12)
[2020-10-04] MEDS: SPIRONOLACTONE 25 MG TABLET PO SCH (09:12)
[2020-10-04] MEDS: GABAPENTIN 300 MG CAPSULE PO PRN (12:38)
[2020-10-04] MEDS: CYCLOBENZAPRINE 10 MG TABLET PO PRN (14:08)
[2020-10-04 17:19] VITALS: BP 127/65
[2020-10-04] MEDS: ACETAMINOPHEN 325 MG TABLET PO PRN (17:35)
[2020-10-04] MEDS: FERROUS SULFATE 325 MG TABLET PO SCH (17:35)
[2020-10-04] MEDS: OXYcodone IR 5MG TABLET PO PRN (19:51)
[2020-10-04 20:21] VITALS: BP 139/72
[2020-10-04] MEDS ORDERED: MONTELUKAST 10 MG TABLET PO SCH (21:00)
[2020-10-05] MEDS: ACETAMINOPHEN 325 MG TABLET PO PRN (02:49)
[2020-10-05] MEDS: CYCLOBENZAPRINE 10 MG TABLET PO PRN (02:49)
[2020-10-05] MEDS: OXYcodone IR 5MG TABLET PO PRN ×2 (02:49→09:30)
[2020-10-05 02:55] VITALS: BP 132/59
[2020-10-05] MEDS ORDERED: OMEPRAZOLE 20 MG CAPSULE.DR PO SCH (06:00)
[2020-10-05] MEDS: GABAPENTIN 300 MG CAPSULE PO PRN (06:22)
[2020-10-05] MEDS ORDERED: METOLAZONE 2.5 MG TABLET PO SCH (07:30)
[2020-10-05] MEDS: SPIRONOLACTONE 25 MG TABLET PO SCH (08:07)
[2020-10-05] MEDS: LOSARTAN 100 MG TAB PO SCH (08:07)
[2020-10-05] MEDS: POTASSIUM CHLORIDE 20 MEQ TAB.ER.PRT PO SCH (08:07)
[2020-10-05] MEDS: MULTIVITAMIN 1 TABLET PO SCH (08:08)
[2020-10-05] MEDS: FERROUS SULFATE 325 MG TABLET PO SCH ×2 (08:08→12:13)
[2020-10-05] MEDS: DILTIAZEM 240 MG CAP.ER.24H PO SCH (08:08)
[2020-10-05] MEDS: SUCRALFATE 1 GM TABLET PO SCH ×2 (08:08→12:13)
[2020-10-05 08:09] VITALS: BP 131/68
[2020-10-05] MEDS ORDERED: FLUTICASONE/VILANTEROL 200-25MCG/INH INH SCH (09:00)
[2020-10-05] MEDS ORDERED: FERR-51 PO (11:15)
[2020-10-05] MEDS ORDERED: OXYC5TAB98 PO (11:15)
== END 2020-10-05 13:52 | disposition home or self-care (01) ==
LOC: ED 03:43 → EDIP 06:34 → INTOOBSV 06:34 → 4NW 07:27 → DCLOUNGE 10-05 13:38
PROVIDERS: ADMIT Family Medicine; ATTEND Family Medicine
DX: I27.20 Pulmonary hypertension, unspecified (principal); J44.9 Chronic obstructive pulmonary disease, unspecified; M79.605 Pain in left leg; D50.9 Iron deficiency anemia, unspecified; D53.9 Nutritional anemia, unspecified; I11.0 Hypertensive heart disease with heart failure; I50.32 Chronic diastolic (congestive) heart failure; I48.91 Unspecified atrial fibrillation; C49.A0 Gastrointestinal stromal tumor, unspecified site; E66.9 Obesity, unspecified; D72.829 Elevated white blood cell count, unspecified; E87.3 Alkalosis; G47.33 Obstructive sleep apnea (adult) (pediatric); Z79.899 Other long term (current) drug therapy; Z87.891 Personal history of nicotine dependence; Z99.81 Dependence on supplemental oxygen; Z85.118 Personal history of other malignant neoplasm of bronchus and lung; Z85.831 Personal history of malignant neoplasm of soft tissue
CPT/HCPCS: 36415; 71045; 71275; 80053; 83880; 84484; 85025; 93005; 93971; 94640; 97161; 99285; G0378; Q9967

== ENCOUNTER 2021-01-03 19:12 | Inpatient (IN) | payer MEDICARE ==
[~2021-01-03] VITALS: Ht 182.9 cm; Wt 138.0 kg
[~2021-01-03 19:12] MED LIST changes: -HYDR-1067 PO; +HYDR-2214 PO; -IMAT400T PO; +IMAT400T6 PO; -OMEP40CA42 PO; +OMEP40CA8 PO
--- NOTE | 2021-01-03 19:36 | NUR ---
CC OF SOB SINCE THIS AM. BASELINE OF 2 L NC FOR HX OF COPD. CURRENTLY ON 5 L NC FOR SP02 AT 92%. PT UNABLE TO LIE DOWN, SITTING AT EDGE OF BED.
[2021-01-03] MEDS ORDERED: AZITHROMYCIN 500 MG in SODIUM CHLORIDE 0.9% 250 ML IV ONE (19:58)
[2021-01-03] MEDS ORDERED: CEFTRIAXONE 1,000 MG in DEXTROSE 5% 50 ML IVPB ONE (20:00)
[2021-01-03] MEDS ORDERED: SODIUM CHLORIDE FLUSH 10ML SYR IVF ONE (20:00)
--- NOTE | 2021-01-03 20:09 | NUR ---
MD ORDER 1 SET BC, ABX ORDERED, REQUESTED MD 2ND SET PRIOR TO ABX ADMISSION.
[2021-01-03 20:18] LABS: BASOPHILS % (AUTO) 0 % (0-1); EOSINOPHILS % (AUTO) 1 % (1-7); LYMPHOCYTES % (AUTO) 7 % (22-44); MEAN CORPUSCULAR HEMOGLOBIN 29.8 pg (27.5-34.5); MEAN PLATELET VOLUME 8.2 fL (7.4-10.4); MONOCYTES % (AUTO) 5 % (2-9); NEUTROPHILS % (AUTO) 87 % (42-75); PLATELET COUNT 268 x10^3/uL (130-400); RED BLOOD COUNT 4.04 x10^6/uL (4.38-5.82); RED CELL DISTRIBUTION WIDTH 15.1 % (9.4-14.8)
[2021-01-03 20:19] LABS: ALBUMIN 3.5 g/dL (3.4-5.0); ANION GAP 7 mmol/L (5-15); CALCIUM 8.5 mg/dL (8.5-10.1); CHLORIDE 90 mmol/L (98-107)
[2021-01-03 20:22] LABS: ALANINE AMINOTRANSFERASE 28 U/L (12-78); ALKALINE PHOSPHATASE 100 U/L (45-117); BILIRUBIN,TOTAL 0.3 mg/dL (0.2-1.0); CREATININE 0.96 mg/dL (0.7-1.3); TOTAL PROTEIN 6.8 g/dL (6.4-8.2); TROPONIN I < 0.015 ng/mL (0.000-0.045)
[2021-01-03 20:52] LABS: <PLATELET ESTIMATE> ADEQUATE; <PLT MORPHOLOGY> NORMAL PLT MORPH; ANISOCYTOSIS 1+; STOMATOCYTES 1+
[2021-01-03] MEDS ORDERED: POTASSIUM CHLORIDE 20 MEQ TAB.ER.PRT PO ONE (21:00)
[2021-01-03] MEDS ORDERED: ALBUTEROL/IPRATROPIUM 2.5MG/0.5MG, 3 ML ONE (21:08)
[2021-01-03] MEDS: ALBUTEROL/IPRATROPIUM 2.5MG/0.5MG, 3 ML NPPB SCH ×2 (21:09→21:11)
--- NOTE | 2021-01-03 21:25 | NUR ---
RT AT BEDSIDE FOR BREATHING TX
--- NOTE | 2021-01-03 21:30 | NUR ---
MED REC UPDATED AND VERIFIED
[2021-01-03] MEDS ORDERED: POTASSIUM CHLORIDE 20 MEQ TAB.ER.PRT ONE (21:33)
--- NOTE | 2021-01-03 21:41 | NUR ---
REPORT GIVEN TO ROBERT REYES. PT UPDATED ON POC
[2021-01-03 22:00] VITALS: BP 159/80
[2021-01-04] MEDS ORDERED: POTASSIUM CHLORIDE 20 MEQ TAB.ER.PRT PO ONE
[2021-01-04] MEDS ORDERED: LABETALOL 5MG/ML, 20ML IVPush PRN
[2021-01-04] MEDS ORDERED: ACETAMINOPHEN 325 MG TABLET PO PRN
[2021-01-04] MEDS ORDERED: ONDANSETRON 2MG/ML, 2ML IVPush PRN
[2021-01-04] MEDS ORDERED: ENOXAPARIN 40 MG/0.4 ML SQ SCH
[2021-01-04] MEDS: MONTELUKAST 10 MG TABLET PO SCH ×2 (00:52→20:42)
[2021-01-04] MEDS: ZOLPIDEM 5MG TABLET PO PRN ×2 (00:53→22:15)
[2021-01-04 01:17] VITALS: BP 153/79
[2021-01-04] MEDS ORDERED: ALBUTEROL SULFATE 2.5 MG/3 ML NPPB PRN (02:00)
[2021-01-04] MEDS: OMEPRAZOLE 20 MG CAPSULE.DR PO SCH (05:30)
[2021-01-04 06:20] LABS: BASOPHILS % (AUTO) 0 % (0-1); EOSINOPHILS % (AUTO) 0 % (1-7); LYMPHOCYTES % (AUTO) 7 % (22-44); MEAN CORPUSCULAR HEMOGLOBIN 29.7 pg (27.5-34.5); MEAN CORPUSCULAR HGB CONC 32.7 g/dL (33.2-36.2); MEAN PLATELET VOLUME 8.4 fL (7.4-10.4); MONOCYTES % (AUTO) 6 % (2-9); NEUTROPHILS % (AUTO) 87 % (42-75); PLATELET COUNT 260 x10^3/uL (130-400); RED BLOOD COUNT 3.93 x10^6/uL (4.38-5.82); RED CELL DISTRIBUTION WIDTH 15.1 % (9.4-14.8)
[2021-01-04 06:26] LABS: ANION GAP 3 mmol/L (5-15); CALCIUM 8.7 mg/dL (8.5-10.1); CHLORIDE 93 mmol/L (98-107); CREATININE 0.87 mg/dL (0.7-1.3)
[2021-01-04 06:32] VITALS: BP 111/59
[2021-01-04] MEDS: METOLAZONE 2.5 MG TABLET PO SCH (08:06)
[2021-01-04] MEDS: AZITHROMYCIN 500 MG TABLET PO SCH (08:06)
[2021-01-04] MEDS: SPIRONOLACTONE 25 MG TABLET PO SCH (08:07)
[2021-01-04] MEDS: DILTIAZEM 240 MG CAP.ER.24H PO SCH (08:07)
[2021-01-04] MEDS: POTASSIUM CHLORIDE 20 MEQ TAB.ER.PRT PO SCH (08:08)
[2021-01-04] MEDS: LOSARTAN 100 MG TAB PO SCH (08:08)
[2021-01-04] MEDS: FERROUS SULFATE 325 MG TABLET PO SCH ×3 (08:08→16:29)
[2021-01-04] MEDS: BUDESONIDE 0.5 MG/2 ML INHA INH SCH ×2 (08:30→18:16)
[2021-01-04] MEDS: ALBUTEROL/IPRATROPIUM 2.5MG/0.5MG, 3 ML HHN SCH ×4 (08:30→18:16)
[2021-01-04] MEDS ORDERED: IBUPROFEN 600 MG TABLET PO PRN (11:30)
[2021-01-04 14:10] VITALS: BP 110/67
[2021-01-04 19:36] VITALS: BP 150/70
[2021-01-04] MEDS: CEFTRIAXONE 1,000 MG in DEXTROSE 5% 50 ML IVPB SCH (20:42)
[2021-01-05] MEDS: ENOXAPARIN 30 MG/0.3 ML SQ SCH ×3 (00:15→23:59)
[2021-01-05 00:17] VITALS: BP 108/58
[2021-01-05 05:39] LABS: BASOPHILS % (AUTO) 0 % (0-1); EOSINOPHILS % (AUTO) 0 % (1-7); LYMPHOCYTES % (AUTO) 11 % (22-44); MEAN CORPUSCULAR HEMOGLOBIN 30.1 pg (27.5-34.5); MEAN CORPUSCULAR HGB CONC 33.1 g/dL (33.2-36.2); MEAN PLATELET VOLUME 7.9 fL (7.4-10.4); MONOCYTES % (AUTO) 8 % (2-9); NEUTROPHILS % (AUTO) 81 % (42-75); PLATELET COUNT 251 x10^3/uL (130-400); RED BLOOD COUNT 3.86 x10^6/uL (4.38-5.82); RED CELL DISTRIBUTION WIDTH 14.8 % (9.4-14.8)
[2021-01-05] MEDS: OMEPRAZOLE 20 MG CAPSULE.DR PO SCH (05:39)
[2021-01-05 05:47] LABS: ALANINE AMINOTRANSFERASE 23 U/L (12-78); ALBUMIN 3.2 g/dL (3.4-5.0); ANION GAP 4 mmol/L (5-15); CALCIUM 8.6 mg/dL (8.5-10.1); CHLORIDE 95 mmol/L (98-107); CREATININE 0.72 mg/dL (0.7-1.3)
[2021-01-05 05:54] LABS: ALKALINE PHOSPHATASE 84 U/L (45-117); BILIRUBIN,TOTAL 0.2 mg/dL (0.2-1.0); TOTAL PROTEIN 6.5 g/dL (6.4-8.2)
[2021-01-05 06:19] LABS: HCT (SEDRATE) 35.1 % (39.2-51.8)
[2021-01-05 08:16] VITALS: BP 136/85
[2021-01-05] MEDS: BUDESONIDE 0.5 MG/2 ML INHA INH SCH ×2 (08:20→18:16)
[2021-01-05] MEDS: ALBUTEROL/IPRATROPIUM 2.5MG/0.5MG, 3 ML HHN SCH ×4 (08:20→18:16)
[2021-01-05] MEDS: METOLAZONE 2.5 MG TABLET PO SCH (09:21)
[2021-01-05] MEDS: SPIRONOLACTONE 25 MG TABLET PO SCH (09:22)
[2021-01-05] MEDS: DILTIAZEM 240 MG CAP.ER.24H PO SCH (09:22)
[2021-01-05] MEDS: POTASSIUM CHLORIDE 20 MEQ TAB.ER.PRT PO SCH (09:22)
[2021-01-05] MEDS: AZITHROMYCIN 500 MG TABLET PO SCH (09:22)
[2021-01-05] MEDS: LOSARTAN 100 MG TAB PO SCH (09:22)
[2021-01-05] MEDS: FERROUS SULFATE 325 MG TABLET PO SCH ×3 (09:23→15:48)
[2021-01-05 13:46] VITALS: BP 134/83
[2021-01-05 19:11] VITALS: BP 137/73
[2021-01-05] MEDS: MONTELUKAST 10 MG TABLET PO SCH (20:31)
[2021-01-05] MEDS: CEFTRIAXONE 1,000 MG in DEXTROSE 5% 50 ML IVPB SCH (20:32)
[2021-01-05] MEDS: ZOLPIDEM 5MG TABLET PO PRN (23:07)
[2021-01-06 01:01] VITALS: BP 123/61
[2021-01-06 05:11] LABS: BASOPHILS % (AUTO) 0 % (0-1); EOSINOPHILS % (AUTO) 0 % (1-7); LYMPHOCYTES % (AUTO) 13 % (22-44); MEAN CORPUSCULAR HGB CONC 33.1 g/dL (33.2-36.2); MONOCYTES % (AUTO) 7 % (2-9); NEUTROPHILS % (AUTO) 80 % (42-75); PLATELET COUNT 246 x10^3/uL (130-400); RED BLOOD COUNT 3.76 x10^6/uL (4.38-5.82); RED CELL DISTRIBUTION WIDTH 14.7 % (9.4-14.8)
[2021-01-06 05:15] LABS: ANION GAP 2 mmol/L (5-15); CALCIUM 8.3 mg/dL (8.5-10.1); CHLORIDE 94 mmol/L (98-107)
[2021-01-06] MEDS: OMEPRAZOLE 20 MG CAPSULE.DR PO SCH (05:23)
[2021-01-06 06:18] VITALS: BP 138/64
[2021-01-06] MEDS: METOLAZONE 2.5 MG TABLET PO SCH (08:26)
[2021-01-06] MEDS: POTASSIUM CHLORIDE 20 MEQ TAB.ER.PRT PO SCH (08:26)
[2021-01-06] MEDS: LOSARTAN 100 MG TAB PO SCH (08:27)
[2021-01-06] MEDS: DILTIAZEM 240 MG CAP.ER.24H PO SCH (08:27)
[2021-01-06] MEDS: AZITHROMYCIN 500 MG TABLET PO SCH (08:27)
[2021-01-06] MEDS: SPIRONOLACTONE 25 MG TABLET PO SCH (08:27)
[2021-01-06] MEDS: FERROUS SULFATE 325 MG TABLET PO SCH ×2 (08:27→12:00)
[2021-01-06] MEDS: BUDESONIDE 0.5 MG/2 ML INHA INH SCH (08:55)
[2021-01-06] MEDS: ALBUTEROL/IPRATROPIUM 2.5MG/0.5MG, 3 ML HHN SCH ×2 (08:55→12:35)
[2021-01-06] MEDS ORDERED: AMOX500T PO (10:10)
[2021-01-06] MEDS ORDERED: PRED20TA PO (10:10)
[2021-01-06] MEDS ORDERED: AZIT500T10 PO (10:10)
[2021-01-06] MEDS: ENOXAPARIN 30 MG/0.3 ML SQ SCH (12:00)
== END 2021-01-06 13:24 | disposition home or self-care (01) | DRG 871 ==
LOC: ED 20:42 → EDIP 21:02 → 3N 21:53
PROVIDERS: ADMIT Family Medicine; ATTEND Family Medicine
DX: A41.9 Sepsis, unspecified organism (principal); J15.6 Pneumonia due to other Gram-negative bacteria; J96.21 Acute and chronic respiratory failure with hypoxia; I50.33 Acute on chronic diastolic (congestive) heart failure; J44.0 Chronic obstructive pulmonary disease with (acute) lower respiratory infection; Z68.41 Body mass index [BMI] 40.0-44.9, adult; I50.32 Chronic diastolic (congestive) heart failure; J44.1 Chronic obstructive pulmonary disease with (acute) exacerbation; E87.1 Hypo-osmolality and hyponatremia; E66.01 Morbid (severe) obesity due to excess calories; D64.9 Anemia, unspecified; E87.6 Hypokalemia; R73.03 Prediabetes; E83.42 Hypomagnesemia; I11.0 Hypertensive heart disease with heart failure; I27.20 Pulmonary hypertension, unspecified; I48.91 Unspecified atrial fibrillation; Z86.711 Personal history of pulmonary embolism; Z90.49 Acquired absence of other specified parts of digestive tract; Z87.891 Personal history of nicotine dependence; Z99.81 Dependence on supplemental oxygen; Z85.118 Personal history of other malignant neoplasm of bronchus and lung; Z80.3 Family history of malignant neoplasm of breast; Z82.49 Family history of ischemic heart disease and other diseases of the circulatory system; Z79.899 Other long term (current) drug therapy
CPT/HCPCS: 36415; 71045; 80048; 80053; 83036; 83605; 83735; 83880; 84145; 84484; 85025; 85651; 86140; 87040; 93005; 93306; 94640; 96365; 96375; G0378; J0456; J0696; J1650; J7626; J7050; J7512